=== PATIENT | female | born 1940 | race Caucasian/White ===

== ENCOUNTER 2024-06-16 10:27 | Observation (INO) | payer MEDICARE, BC, SELFPAY ==
[2024-06-16] VITALS (9 sets, daily range): BP systolic 136–170; BP diastolic 72–80; PULSE 64–69; TEMP 36.1–36.9; O2SAT 91–98; BMI 21.6; BMI 18.3
--- NOTE | 2024-06-16 | CONS_ITS ---
CONSULTATION CONSULTATION DATE: ??06/16/2024 CHIEF COMPLAINT:? Dysphagia, possible food impaction. HISTORY OF PRESENT ILLNESS:? Patient is an 83-year-old female with multiple medical problems including COPD, hypothyroidism, hypertension, peripheral vascular disease, hereditary telangiectasias.? She is on baby aspirin and Xarelto due to history of previous blood clots as well as angioplasty and stenting of the left superior femoral artery in October of 2023.? She reports that she was eating some type of Ramen soup last night that has some dried noodles and thought that she was swallowing it too quickly and felt like of these dried noodles were struck in the throat or irritated the throat.? Has continued to have a feeling of dysphagia when she tried to swallow solid foods.? She does report that she was able to swallow her medications this morning without difficulty, as well as liquids have been going down and her saliva; however, if she tries to eat anything solid, she feels like it is sticking there.? It is not coming back up.? She did have one small episode of emesis last evening when this happened, but has had no further problems.? No chest or abdominal pain.? She does have a history of dysphagia in the past.? She does report that when she had a lower extremity amputation on the right, she did require a temporary nasal feeding tube as well as a PEG tube due to poor p.o. intake.? She is a somewhat poor historian.? It is unclear whether she had an EGD for food impaction or just for the PEG tube insertion.? PAST SURGICAL HISTORY:? Patient?s past surgical history is also significant for tonsillectomy, hysterectomy, right below the knee amputation, as well as angioplasty and stenting of the left SFA.? SOCIAL HISTORY:? Patient reports rare alcohol use.? She is a former smoker.? Denies illicit drug use.? FAMILY HISTORY: Noncontributory. ALLERGIES:? Patient has allergies to moxifloxacin, Bactrim. HOME MEDICATIONS:? Include baby aspirin, atorvastatin, Restasis, Synthroid, lisinopril, mirabegron as well as Xarelto.? She just takes the Xarelto daily and did take it this morning.? REVIEW OF SYSTEMS:? Ten system review of systems is negative for recent weight loss or weight gain.? She denies increased fatigue or lightheadedness.? Has had no earache or tinnitus.? No sinus congestion, no sore throat or hoarseness.? She does have a feeling of dysphagia and some odynophagia.? No nausea or vomiting.? No abdominal pain. ?No diarrhea, constipation or decreased caliber of the stool.? No melena, hematochezia or bright red blood per rectum.? No dysuria, frequency, urgency or hematuria.? No headaches, seizures or tremors.? No easy bruising or bleeding.? No heat or cold intolerance.? No polydipsia, polyphagia or polyuria.? PHYSICAL EXAM:? Vital Signs:? Patient is afebrile.? Blood pressure 136/72, pulse is 69 and regular.? Respiratory rate 18, O2 saturation is 94% on room air.? General:? In general, she is an elderly, frail female, currently in no acute distress. ?She is tolerating a liquid diet without problems. HEENT:? Normocephalic, atraumatic.? Sclerae anicteric.? Patient wears glasses.? Conjunctivae are not injected.? Oral mucosa is slightly dry.? Neck is supple.? There is no adenopathy, thyromegaly or JVD. Lungs are clear bilaterally. Cardiac exam is regular rhythm and rate without appreciable murmurs, rubs or gallops. Abdomen is soft.? There are normal bowel sounds.? It is non-tender, non- distended.? There are no masses, ?hepatosplenomegaly or hernias.? No CVA tenderness. Skin is warm and dry without lesions, rashes or ulcers. Neuro exam is non-focal, non-lateralizing. LABORATORY VALUES:? Reveal mild anemia of 12.4 and 40.1 was the H&H.? Platelet count is 631,000.? Sodium is low at 128.? BUN is 18 with a creatinine of 0.61.? Liver function tests are normal.? IMAGING:? Chest x-ray was with no acute cardiopulmonary disease. ASSESSMENT:? An 83-year-old female with possible partial food obstruction versus irritation of the distal esophagus, currently in no acute distress. PLAN:? To proceed with EGD under anesthesia tomorrow.? She will be NPO after midnight.? We will hold her anticoagulation.? This may just be some irritation versus a partial food impaction.? Indications, risks, benefits, alternatives of proceeding with EGD and possible reduction or removal of the food bolus were explained extensively to the patient, including risks of bleeding aspiration, esophageal/gastric/duodena perforation, anesthetic complications, need for further surgery or transfer.? All of her questions were answered.? Informed consent was obtained. CC:? Lake Pearson M.D. [facility] HOSPITALAlejandra
--- NOTE | 2024-06-16 10:51 | ED.GENADUL1 ---
HPI HPI - General Adult General Chief complaint: Skin/Abscess/Foreign Body Stated complaint: THROAT PAIN Time Seen by Provider: 06/16/24 10:30 Source: patient Mode of arrival: ambulance History of Present Illness HPI narrative: Patient presenting to the emergency department for evaluation of potential food bolus. Patient states that last night she was eating Ramen noodle soup, she states that she ended up having some dry noodles, they got stuck in the midesophagus. Patient states that this happened once in the past, after she had surgery for her leg amputation. Patient states that she has had if esophageal difficulties in the past, has had food stuck in the past. Patient states that she feels like something is stuck in there, she does not want to eat or drink anything because she knows going to get stuck. Was able to take liquids, take her pills this morning. States she is not having any drooling, nausea, vomiting. Is not having any abdominal pain. No other complaints at this time Related Data Allergies Allergy/AdvReac Type Severity Reaction Status Date / Time moxifloxacin [From Avelox] Allergy Unknown Rash Verified 06/16/24 10:33 sulfamethoxazole Allergy Unknown Rash Verified 06/16/24 10:33 [From Bactrim] trimethoprim [From Bactrim] Allergy Unknown Rash Verified 06/16/24 10:33 Opioid HPI Opioid Management Most Recent Opioid Data: Last Pain Scale 4 06/16/24 10:37 Review of Systems ROS Narrative Negative unless otherwise stated in the HPI. Exam Narrative Exam Narrative: General: NAD, AAOx3, no distress, no drooling, no trismus, does not have inability to tolerate oral secretions, no air, is Respiratory: respiratory effort normal, speaks in full sentences, no tripod position, no accessory muscle use. Lungs clear to auscultation without rhonchi, wheezes, rales Cardiac: Regular rate and rhythm, no edema, regular s1/s2, no m/g/r Abdomen: Soft, ND/NT. No evidence of fluid wave. No pulsatile masses on exam, rebound tenderness, Carmichael sign or pain over Mcburney's point. Constitutional Vital Signs, click to edit/add: Last Vital Signs Temp 98.5 F 06/16/24 10:29 Pulse 67 06/16/24 10:29 Resp 20 06/16/24 10:29 BP 170/79 H 06/16/24 10:29 Pulse Ox 97 06/16/24 10:29 O2 Del Method Room Air 06/16/24 10:29 Course Vital Signs Vital signs: Vital Signs Temperature 98.5 F 06/16/24 10:29 Pulse Rate 67 06/16/24 10:29 Respiratory Rate 20 06/16/24 10:29 Blood Pressure 170/79 H 06/16/24 10:29 Pulse Oximetry 97 06/16/24 10:29 Oxygen Delivery Method Room Air 06/16/24 10:29 Temperature 98.5 F 06/16/24 10:29 Pulse Rate 67 06/16/24 10:29 Respiratory Rate 20 06/16/24 10:29 Blood Pressure 170/79 H 06/16/24 10:29 Pulse Oximetry 97 06/16/24 10:29 Oxygen Delivery Method Room Air 06/16/24 10:29 Medical Decision Making MDM Narrative Medical decision making narrative: MDM Patient with history as above presented with esophageal food bolus. History obtained from patient Patient was nontoxic, stable. Ambulatory. Exam as above. Reviewed external records. Differential diagnosis considered. Overall presentation is consistent with food bolus 1055 was p.o. challenged with effervescent, soda pop. Tolerated it well, states that she feels like it is getting semistuck in the mid esophagus. 1144 General surgery was paged, patient has failed p.o. challenge. Took 1 bite of Jell-O, states it got stuck and went down only after very long time. Patient states that he did not really want to go down. He is refusing to eat anything further. Liquid did go down, and facility said a pill went down this morning. He states the patient can be placed on knobs and he will see patient on consultation. [address] Cardenas, who agreed to admit patient for fluid bolus, general surgery will be station.. Medical Records Medical records reviewed: Yes I reviewed the patient's medical records Discharge Plan Discharge Chief Complaint: Skin/Abscess/Foreign Body Clinical Impression: Food impaction of esophagus Patient Disposition: Admitted as Observation Time of Disposition Decision: 12:17
--- NOTE | 2024-06-16 12:10 | XR_ITS ---
The [address] [address] Patient Name: GARETT NIETO MRN: [id number] date: 1940 Sex: F Assigned Patient Location: ED.MAIN Current Patient Location: ED.MAIN Accession/Order Number: [id number] Exam Date: 06/16/2024 12:20 Report Date: 06/16/2024 13:05 At the request of: SHAIKH KRYSTEN Procedure: XR chest 1V EXAMINATION: XR chest 1V HISTORY: Food bolus/esophageal dysphagia COMPARISON: XR chest 1112 FINDINGS: LUNGS: Previously hyperexpanded lungs suggestive COPD. Lungs are less well-expanded on today's study. Small dense nodule within upper right and left lung favoring a calcified granulomas. No appreciable infiltrates. VASCULATURE: No increased pulmonary vasculature. PLEURA: No pneumothorax, effusion, or pleural thickening. CARDIAC: No cardiomegaly or cardiac silhouette abnormality. MEDIASTINUM: No visible mass or adenopathy. BONES: No fracture or visible bone lesion. OTHER: Negative. XR/XR chest 1V IMPRESSION: 1. No acute cardiopulmonary process. Electronically authenticated by: HANNA CASTRO Date: 06/16/2024 13:05
--- NOTE | 2024-06-16 12:10 | ECG_ITS ---
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
[2024-06-16 12:52] LABS: Basophils Absolute Auto 0.1 10^3/uL (0.0-0.1); Basophils Percent Auto 0.9 % (0.2-2.0); Eosinophils Percent Auto 0.7 % (0.9-7.0); Hematocrit 40.1 % (36.0-48.0); Hemoglobin 12.4 g/dL (12.0-16.0); Immature Granulocytes Abs Auto 0.02 10^3/uL (0.00-0.03); Immature Granulocytes Pct Auto 0.4 % (0.0-0.5); Lymphocytes Absolute Auto 0.8 10^3/uL (1.2-3.8); Mean Corpuscular HGB Conc 30.9 g/dL (29.9-35.2); Mean Corpuscular Hemoglobin 24.1 pg (26.7-34.0); Mean Platelet Volume 10.2 fL (9.5-13.5); Monocytes Absolute Auto 0.5 10^3/uL (0.3-0.8); Monocytes Percent Auto 9.5 % (1.7-12.0); Neutrophils Percent Auto 74.5 % (43.0-75.0); Platelet Count 631 10^3/uL (150-450); Red Blood Count 5.14 10^6/uL (4.20-5.40); Red Cell Distribution Width 18.7 % (11.0-15.0); White Blood Count 5.4 10^3/uL (4.0-11.0)
--- NOTE | 2024-06-16 12:56 | P.HP_ITS ---
HPI H&P: HPI History of Present Illness Chief complaint: THROAT PAIN Narrative: 83-year-old female, who lives by herself presented to ER for potential food bolus. She reports that she was eating last evening and feels that foods are stuck in her midesophagus. Since last night, she has been unable to tolerate/eat solid food. She is able to tolerate liquid. Patient reports that even with liquid, she feels that it is getting stuck in her esophagus. She denies nausea and had 1 episode of vomiting yesterday. She denies abdominal pain, constipation, diarrhea. She reports prior history was in the past. Case was discussed with the ER provider who recommended overnight observation. If her symptoms have not resolved, she will need upper GI endoscopy tomorrow in the morning Opioid HPI Opioid Management Most Recent Pain and Opioid Data: Last Pain Scale 4 06/16/24 10:37 Review of Systems ROS Status of ROS 10 or more systems reviewed and unremark able except as noted in history and below [facility] Medical History (Updated 06/16/24 @ 13:00 by Shaikh Alber MD) Hypothyroidism ?E03.9 - Hypothyroidism, unspecified (ICD-10) HTN (hypertension) ?I10 - Essential (primary) hypertension (ICD-10) Social History (Updated 06/16/24 @ 13:00 by Shaikh Alber MD) Within the past year, how often did you have a drink containing alcohol: monthly or less Within the past year, how many standard drinks containing alcohol did you have on a typical day: 1 or 2 Total score: 0 Score interpretation: A score less than 3 is consistent with normal alcohol consumption. Smoking status: Former smoker Non-prescribed substance use: denies use Meds Home Medications and Allergies Home Medications ?Medication ?Instructions ?Recorded ?Confirmed ?Type atorvastatin 80 mg tablet 80 mg PO DAILY 06/16/24 06/16/24 History cyclosporine 0.05 % eye drops in a 1 drp ophthalmic (eye) BID 06/16/24 06/16/24 History dropperette (Restasis) levothyroxine 100 mcg tablet 100 mcg PO .acb 06/16/24 06/16/24 History (Synthroid) lisinopril 10 mg tablet 10 mg PO DAILY 06/16/24 06/16/24 History mirabegron 25 mg tablet,extended 25 mg PO QAM 06/16/24 06/16/24 History release 24 hr Allergies Allergy/AdvReac Type Severity Reaction Status Date / Time moxifloxacin [From Avelox] Allergy Unknown Rash Verified 06/16/24 10:33 sulfamethoxazole Allergy Unknown Rash Verified 06/16/24 10:33 [From Bactrim] trimethoprim [From Bactrim] Allergy Unknown Rash Verified 06/16/24 10:33 Exam Constitutional Vital Signs, click to edit/add: Last Vital Signs Temp 98.5 F 06/16/24 10:29 Pulse 67 06/16/24 10:29 Resp 20 06/16/24 10:29 BP 170/79 H 06/16/24 10:29 Pulse Ox 97 06/16/24 10:29 O2 Del Method Room Air 06/16/24 10:29 Documenting provider has reviewed patient's vital signs: yes Common normals: no apparent distress and oriented x3 General appearance: cooperative, ill appearing and frail appearing Nutritional appearance: thin HENMT Common normals: normocephalic and head/scalp atraumatic Head and scalp: normocephalic and atraumatic Respiratory Common normals: normal respiratory effort and clear to auscultation bilaterally Effort & inspection: able to speak in complete sentences Auscultation: clear to auscultation bilaterally Cardio Common normals: regular rate, S1 normal heart sound and S2 normal heart sound Rate: regular rate Heart sounds: S1 normal and S2 normal GI Common normals: Normal to inspection, nondistended, normoactive bowel sounds present, soft to palpation, non-tender and no hepatosplenomegaly Palpation: soft and no hepatosplenomegaly Neuro Common normals: oriented x3, moves all extremities and no focal motor deficits Psych Common normals: mental status grossly normal, denies hallucinations, denies homi cidal ideation and denies suicidal ideation Results Labs Labs: Short CBC 06/16/24 Range/Units 12:43 WBC 5.4 (4.0-11.0) 10^3/uL Hgb 12.4 (12.0-16.0) g/dL Hct 40.1 (36.0-48.0) % Plt Count 631 H (150-450) 10^3/uL Assessment and Plan Assessment and Plan (1) Food impaction of esophagus: Assessment and Plan: Presents with esophageal dysphagia and possible food impaction in esophagus. She is able to tolerate oral liquids. Continue with same. General surgery consulted for possible upper GI endoscopy tomorrow Qualifiers: Encounter type: subsequent encounter Qualified Code(s): T18.128D - Food in esophagus causing other injury, subsequent encounter; W44.F3XD - Food entering into or through a natural orifice, subsequent encounter (2) Esophageal dysphagia: Assessment and Plan: Esophageal dysphagia likely from food impaction. Tolerating oral liquids.. Treat with IV Protonix. Continue with liquid diet. General surgery consulted for possible EGD tomorrow if she has persistent symptoms (3) Hypothyroidism: Assessment and Plan: Continue with levothyroxine Qualifiers: Hypothyroidism type: unspecified Qualified Code(s): E03.9 - Hypothyroidism, unspecified (4) HTN (hypertension): Assessment and Plan: Continue with home medications. Qualifiers: Hypertension type: primary hypertension Qualified Code(s): I10 - Essential (primary) hypertension
[2024-06-16 13:06] LABS: Alanine Aminotransferase 26 U/L (14-59); Albumin Globulin Ratio 0.9; Albumin Level 3.6 g/dL (3.4-5.0); Alkaline Phosphatase 108 U/L (46-116); Anion Gap 10.2; Aspartate Amino Transferase 20 U/L (15-37); BUN Creatinine Ratio 29.5; Bilirubin Total 0.6 mg/dL (0.2-1.0); Calcium 8.9 mg/dL (8.5-10.1); Carbon Dioxide 28.3 mmol/L (21.0-32.0); Chloride 94 mmol/L (98-107); Estimated GFR (African America >60 (>=60); Estimated GFR (Non-African Ame >60 (>=60); Globulin 3.8 g/dL; Glucose 93 mg/dL (74-106); Potassium 4.5 mmol/L (3.5-5.1); Sodium 128 mmol/L (136-145); Total Protein 7.4 g/dL (6.4-8.2)
[2024-06-16] MEDS: LACTATED RINGER'S SOLUTION 1,000 ML 100 ML IV (15:10)
[2024-06-16] MEDS: ENOXAPARIN SODIUM 40 MG/0.4 ML SYRINGE SUBQ (15:14)
--- NOTE | 2024-06-16 15:30 | SWNOTE1 ---
SW met with pt to discuss dc needs. Pt lives at home alone. Her son does assist as needed. Pt uses a wheelchair and slide board at home. 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 She has grab bars in bathroom to assist as needed. Pt does have home health coming in, she thinks it is [facility]. SW to check. At this time she has no concerns about discharge and will resume her HH. At this time it is only nursing for HH coming in. She had therapy in past, but does not need anymore. SW to follow as needed. Medicare Outpatient Observation Notice reviewed and discussed with patient. Pt. verbalized understanding and signed the form. Original given to patient and copy placed in patient?s chart.
--- NOTE | 2024-06-16 15:34 | SWNOTE1 ---
[facility] called [facility] and pt is current with them and only receiving nursing care.
--- NOTE | 2024-06-16 18:47 | PM.GSCN ---
History of Present Illness Consult details Consult date: 06/16/24 Requesting physician: Shaikh Alber Narrative: patient seen/examined/chart reviewed/consult dictated; 83 yo female with multiple medical problems, on Xarelto and baby asa, with dysphagia, possible partial food impaction; tolerating liquids and her saliva, swallowing her pills ok, feels sensation of pressure when tries to eat food, does not feel like it is going down; no N/V or abd pain; npo after mdn, hold Xarelto, plan EGD with possible reduction/removal of food bolus under anesthesia, informed consent obtained. [facility] Medical History (Updated 06/16/24 @ 14:36 by Serenity Hearn) COPD (chronic obstructive pulmonary disease) ?J44.9 - Chronic obstructive pulmonary disease, unspecified (ICD-10) Frequent epistaxis ?R04.0 - Epistaxis (ICD-10) Amputation above knee ?S78.119A - Complete traumatic amputation at level between unspecified hip and knee, initial encounter (ICD-10) Hypothyroidism ?E03.9 - Hypothyroidism, unspecified (ICD-10) HTN (hypertension) ?I10 - Essential (primary) hypertension (ICD-10) Surgical History (Updated 06/16/24 @ 14:33 by Serenity Hearn) History of tonsillectomy ?Z90.89 - Acquired absence of other organs (ICD-10) H/O: hysterectomy ?Z90.710 - Acquired absence of both cervix and uterus (ICD-10) Family History (Updated 06/16/24 @ 14:36 by Serenity Hearn) Father Family history of CHF (congestive heart failure) Family history of myocardial infarction Mother Family history of CHF (congestive heart failure) Family history of myocardial infarction Social History (Updated 06/16/24 @ 13:00 by Shaikh Alber MD) Within the past year, how often did you have a drink containing alcohol: monthly or less Within the past year, how many standard drinks containing alcohol did you have on a typical day: 1 or 2 Total score: 0 Score interpretation: A score less than 3 is consistent with normal alcohol consumption. Smoking status: Former smoker Non-prescribed substance use: denies use Highest level of school completed/degree received: high school graduate Gender Identity: female Meds Home Medications and Allergies Home Medications ?Medication ?Instructions ?Recorded ?Confirmed ?Type aspirin 81 mg chewable tablet 81 mg PO .qhs 06/16/24 06/16/24 History atorvastatin 80 mg tablet 80 mg PO DAILY 06/16/24 06/16/24 History cyclosporine 0.05 % eye drops in a 1 drp ophthalmic (eye) BID 06/16/24 06/16/24 History dropperette (Restasis) levothyroxine 100 mcg tablet 100 mcg PO .acb 06/16/24 06/16/24 History (Synthroid) lisinopril 10 mg tablet 10 mg PO DAILY 06/16/24 06/16/24 History mirabegron 25 mg tablet,extended 25 mg PO QAM 06/16/24 06/16/24 History release 24 hr rivaroxaban 2.5 mg tablet (Xarelto) 2.5 mg PO DAILY 06/16/24 06/16/24 History Allergies Allergy/AdvReac Type Severity Reaction Status Date / Time moxifloxacin [From Avelox] Allergy Unknown Rash Verified 06/16/24 10:33 sulfamethoxazole Allergy Unknown Rash Verified 06/16/24 10:33 [From Bactrim] trimethoprim [From Bactrim] Allergy Unknown Rash Verified 06/16/24 10:33 Exam Constitutional Vital Signs, click to edit/add: Last Vital Signs Temp 97.0 F L 06/16/24 16:00 Pulse 69 06/16/24 16:00 Resp 18 06/16/24 16:00 BP 136/72 06/16/24 16:00 Pulse Ox 94 L 06/16/24 17:07 O2 Del Method Room Air 06/16/24 17:07 Results Labs Labs: Abnormal lab results 06/16/24 Range/Units 12:43 MCV 78.0 L (81.0-99.0) fL MCH 24.1 L (26.7-34.0) pg RDW 18.7 H (11.0-15.0) % Plt Count 631 H (150-450) 10^3/uL Lymph % (Auto) 14.0 L (20.5-60.0) % Eos % (Auto) 0.7 L (0.9-7.0) % Lymph # (Auto) 0.8 L (1.2-3.8) 10^3/uL Sodium 128 L (136-145) mmol/L Chloride 94 L (98-107) mmol/L Diabetes panel 06/16/24 Range/Units 12:43 Sodium 128 L (136-145) mmol/L Potassium 4.5 (3.5-5.1) mmol/L Chloride 94 L (98-107) mmol/L Carbon Dioxide 28.3 (21.0-32.0) mmol/L BUN 18.0 (7.0-18.0) mg/dL Creatinine 0.61 (0.55-1.02) mg/dL Glucose 93 (74-106) mg/dL Calcium 8.9 (8.5-10.1) mg/dL AST 20 (15-37) U/L ALT 26 (14-59) U/L Alkaline Phosphatase 108 (46-116) U/L Total Protein 7.4 (6.4-8.2) g/dL Albumin 3.6 (3.4-5.0) g/dL Calcium panel 06/16/24 Range/Units 12:43 Calcium 8.9 (8.5-10.1) mg/dL Albumin 3.6 (3.4-5.0) g/dL Pituitary panel 06/16/24 Range/Units 12:43 Sodium 128 L (136-145) mmol/L Potassium 4.5 (3.5-5.1) mmol/L Chloride 94 L (98-107) mmol/L Carbon Dioxide 28.3 (21.0-32.0) mmol/L BUN 18.0 (7.0-18.0) mg/dL Creatinine 0.61 (0.55-1.02) mg/dL Glucose 93 (74-106) mg/dL Calcium 8.9 (8.5-10.1) mg/dL Adrenal panel 06/16/24 Range/Units 12:43 Sodium 128 L (136-145) mmol/L Potassium 4.5 (3.5-5.1) mmol/L Chloride 94 L (98-107) mmol/L Carbon Dioxide 28.3 (21.0-32.0) mmol/L BUN 18.0 (7.0-18.0) mg/dL Creatinine 0.61 (0.55-1.02) mg/dL Glucose 93 (74-106) mg/dL Calcium 8.9 (8.5-10.1) mg/dL Total Bilirubin 0.6 (0.2-1.0) mg/dL AST 20 (15-37) U/L ALT 26 (14-59) U/L Alkaline Phosphatase 108 (46-116) U/L Total Protein 7.4 (6.4-8.2) g/dL Albumin 3.6 (3.4-5.0) g/dL All other labs normal. Assessment and Plan Assessment and Plan (1) Food impaction of esophagus: Qualifiers: Encounter type: subsequent encounter Qualified Code(s): T18.128D - Food in esophagus causing other injury, subsequent encounter; W44.F3XD - Food entering into or through a natural orifice, subsequent encounter (2) Esophageal dysphagia: (3) Hypothyroidism: Qualifiers: Hypothyroidism type: unspecified Qualified Code(s): E03.9 - Hypothyroidism, unspecified (4) HTN (hypertension): Qualifiers: Hypertension type: primary hypertension Qualified Code(s): I10 - Essential (primary) hypertension
[2024-06-16] MEDS: ATORVASTATIN CALCIUM 40 MG TABLET 80 MG PO (21:15)
[2024-06-17] VITALS (8 sets, daily range): BP systolic 114–170; BP diastolic 50–81; PULSE 56–63; TEMP 36.4–36.6; O2SAT 90–98
--- NOTE | 2024-06-17 | OP_ITS ---
OPERATION DATE: 06/17/2024 PREOPERATIVE DIAGNOSIS: Dysphagia, possible food impaction. POSTOPERATIVE DIAGNOSIS: Large hiatal hernia. PROCEDURE: EGD SURGEON: Eriberto Louie M.D. ANESTHESIA: Monitored anesthesia care. ESTIMATED BLOOD LOSS: Zero. INDICATIONS AND CONSENT: Patient is an 83-year-old female who was eating some Ramen noodles two nights ago, some were dried and she reports that she was eating quickly. She felt like these got partially lodged in the lower esophagus and were making it difficult for her to swallow. She was able to swallow her pills and take liquids without problems, as well as her own saliva. She presented to the emergency room for evaluation, because she felt that food was not going down adequately or felt that it was getting stuck in the area where she felt the food was stuck. She does take Xarelto as well as aspirin. She was admitted yesterday and kept on clear liquid diet, NPO after midnight. She feels improved today. Plan is to proceed with EGD under anesthesia for further evaluation. Her Xarelto was held today. Indications, risks, benefits, alternatives of proceeding with EGD were explained extensively to the patient, including the risks of bleeding, aspiration, esophageal/gastric/duodenal perforation or anesthetic complications. All of her questions were answered. Informed consent was obtained. PROCEDURE: Patient brought to the operating room, placed in the left lateral decubitus position. Monitored anesthesia care was provided. Bite block was placed in the patient?s mouth. Scope was inserted into the oropharynx. Under direct visualization, it was advanced into the esophagus, past the cricopharyngeus, down to the distal esophagus and into the stomach. The stomach was insufflated with air. There was no old or new blood or inflammation within the stomach. The scope was retroflexed. There was noted to be a large, sliding type hiatal hernia. The GE junction was noted at approximately 34 cm. There was no narrowing in the esophagus. No esophagitis. No ulcerations. No evidence of narrowing or food bolus. The remainder of the esophagus was unremarkable, upon withdrawal of the scope. Patient tolerated procedure well, was sent to recovery room in good condition. CC: Lake Pearson M.D. [facility]
[2024-06-17] MEDS: LACTATED RINGER'S SOLUTION 1,000 ML 100 ML IV (00:46)
[2024-06-17] MEDS: PANTOPRAZOLE SODIUM 40 MG VIAL IV (05:38)
[2024-06-17 06:26] LABS: Basophils Absolute Auto 0.1 10^3/uL (0.0-0.1); Basophils Percent Auto 1.1 % (0.2-2.0); Eosinophils Absolute Auto 0.1 10^3/uL (0.0-0.7); Eosinophils Percent Auto 2.3 % (0.9-7.0); Hematocrit 39.9 % (36.0-48.0); Hemoglobin 12.1 g/dL (12.0-16.0); Immature Granulocytes Abs Auto 0.02 10^3/uL (0.00-0.03); Immature Granulocytes Pct Auto 0.4 % (0.0-0.5); Lymphocytes Absolute Auto 0.6 10^3/uL (1.2-3.8); Lymphocytes Percent Auto 12.6 % (20.5-60.0); Mean Corpuscular HGB Conc 30.3 g/dL (29.9-35.2); Mean Corpuscular Hemoglobin 23.6 pg (26.7-34.0); Mean Corpuscular Volume 77.9 fL (81.0-99.0); Mean Platelet Volume 10.1 fL (9.5-13.5); Monocytes Absolute Auto 0.4 10^3/uL (0.3-0.8); Monocytes Percent Auto 8.6 % (1.7-12.0); Neutrophils Absolute Auto 3.6 10^3/uL (1.4-6.5); Platelet Count 570 10^3/uL (150-450); Red Blood Count 5.12 10^6/uL (4.20-5.40); Red Cell Distribution Width 18.3 % (11.0-15.0); White Blood Count 4.8 10^3/uL (4.0-11.0)
[2024-06-17 06:50] LABS: Alanine Aminotransferase 21 U/L (14-59); Albumin Globulin Ratio 0.9; Albumin Level 3.1 g/dL (3.4-5.0); Alkaline Phosphatase 97 U/L (46-116); Anion Gap 12.4; Aspartate Amino Transferase 18 U/L (15-37); BUN Creatinine Ratio 23.6; Calcium 9.1 mg/dL (8.5-10.1); Carbon Dioxide 25.9 mmol/L (21.0-32.0); Chloride 98 mmol/L (98-107); Estimated GFR (African America >60 (>=60); Estimated GFR (Non-African Ame >60 (>=60); Globulin 3.4 g/dL; Glucose 84 mg/dL (74-106); Potassium 4.3 mmol/L (3.5-5.1); Sodium 132 mmol/L (136-145); Total Protein 6.5 g/dL (6.4-8.2)
--- NOTE | 2024-06-17 10:08 | SWNOTE1 ---
Possible discharge today after EGD. SW called pt's son, Nolberto, and he will transport if pt is discharged.
--- NOTE | 2024-06-17 10:15 | CM.NOTE ---
Rounds made with Dr. Campo, pt being taken to OR at this time for EGD. Pt will possibly discharge to home after EGD this afternoon. Pt is set up with [facility] and will continue with these services.
--- NOTE | 2024-06-17 13:18 | P.DS_ITS ---
DS: Providers Provider Date of admission: 06/16/24 13:53 Primary care physician: ZEENAT TERAN Admitting clinician: Shaikh Alber Attending physician on admission: Shaikh Alebr Consults: 06/16/24 12:08 Consult to General Surgeon Routine Consulting Provider: Eriberto Louie Reason for consultation: esophageal dysphagia Occupational Therapy Eval and Treat Routine Reason for consultation: Ambulatory dysfunction/weakness Physical Therapy Eval and Treat Routine Reason for consultation: Ambulatory dysfunction/weakness 06/16/24 15:39 Speech Therapy Eval and Treat Routine Reason for consultation: dysphagia Attending physician on discharge: Shaikh Alber Discharging clinician: Shaikh Alber Anticipated date of discharge: 06/17/24 DS: Diagnosis Discharge Diagnosis (1) Food impaction of esophagus: Assessment and plan: No food particle noted on EGD. She might have passed the food bolus or her symptoms could have been due to hiatal hernia. Regardless, she is stable for discharge. She is recommended to eat mechanical chopped/soft food. Qualifiers: Encounter type: subsequent encounter Qualified Code(s): T18.128D - Food in esophagus causing other injury, subsequent encounter; [id number] - Food entering into or through a natural orifice, subsequent encounter (2) Esophageal dysphagia: Assessment and plan: likely due to hiatal hernia and associated GERD. Will d/c on oral PPI. Diet modified to soft/shopped. (3) Hypothyroidism: Assessment and plan: C/w levothyroxine Qualifiers: Hypothyroidism type: unspecified Qualified Code(s): E03.9 - Hypothyroidism, unspecified (4) HTN (hypertension): Assessment and plan: C/w home medications Qualifiers: Hypertension type: primary hypertension Qualified Code(s): I10 - Essential (primary) hypertension (5) Hyponatremia: Assessment and plan: improved with IV hydration (6) Hx pulmonary embolism: Assessment and plan: On xarelo, c/w same DS: Summary Hospital Course Hospital Course: 83-year-old female, who lives by herself presented to ER for potential food bolus. She reported that she feels that food is stuck in her midesophagus after her last meal. She denied nausea and had 1 episode of vomiting. She had no other symptoms. Patient was admitted for observation, made NPO and had EGD earlier today that did not show any food particles in esophagus but was noted to have hiatal hernia. Patient's diet advanced. 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 Stable for discharge. F/u with PCP In one week Time Spent with Patient Time attestation: Total time spent providing and/or coordinating discharge services: Exam Constitutional Vital Signs, click to edit/add: Last Vital Signs Temp 97.6 F 06/17/24 12:04 Pulse 57 L 06/17/24 12:04 Resp 18 06/17/24 12:04 BP 148/66 H 06/17/24 12:04 Pulse Ox 95 06/17/24 12:04 O2 Del Method Room Air 06/17/24 12:04 Documenting provider has reviewed patient's vital signs: yes Common normals: no apparent distress and oriented x3 General appearance: cooperative and frail appearing Nutritional appearance: thin HENMT Common normals: normocephalic and head/scalp atraumatic Head and scalp: normocephalic and atraumatic Respiratory Common normals: normal respiratory effort and clear to auscultation bilaterally Effort & inspection: able to speak in complete sentences Auscultation: clear to auscultation bilaterally Cardio Common normals: regular rate, S1 normal heart sound and S2 normal heart sound Rate: regular rate Heart sounds: S1 normal and S2 normal GI Common normals: Normal to inspection, nondistended, normoactive bowel sounds present, soft to palpation, non-tender and no hepatosplenomegaly Palpation: soft and no hepatosplenomegaly Neuro Common normals: oriented x3, moves all extremities and no focal motor deficits Psych Common normals: mental status grossly normal, denies hallucinations, denies homicidal ideation and denies suicidal ideation DS: Data Data Completed and Pending Labs on day of discharge: Labs from last 24 hours 06/17/24 05:17 WBC 4.8 RBC 5.12 Hgb 12.1 Hct 39.9 MCV 77.9 L MCH 23.6 L MCHC 30.3 RDW 18.3 H Plt Count 570 H MPV 10.1 Neut % (Auto) 75.0 Lymph % (Auto) 12.6 L [place] % (Auto) 8.6 Eos % (Auto) 2.3 Baso % (Auto) 1.1 Neut # (Auto) 3.6 Lymph # (Auto) 0.6 L [place] # (Auto) 0.4 Eos # (Auto) 0.1 Baso # (Auto) 0.1 Abs Immat Gran (auto) 0.02 Imm/Tot Granulo (auto) 0.4 Sodium 132 L Potassium 4.3 Chloride 98 Carbon Dioxide 25.9 Anion Gap 12.4 BUN 13.0 Creatinine 0.55 Est GFR ( Amer) >60 Est GFR (Non-Af Amer) >60 BUN/Creatinine Ratio 23.6 Glucose 84 Calcium 9.1 Total Bilirubin 1.0 AST 18 ALT 21 Alkaline Phosphatase 97 Total Protein 6.5 Albumin 3.1 L Globulin 3.4 Albumin/Globulin Ratio 0.9 Discharge Plan Discharge Disposition: Home, Self-Care Discharge Medications: New omeprazole 40 mg capsule,delayed release(DR/EC) 40 mg PO DAILY Qty: 30 0RF Continued atorvastatin 80 mg tablet 80 mg PO DAILY cyclosporine [Restasis] 0.05 % dropperette 1 drp OPHTHALMIC (EYE) BID Rx Instructions: both eyes levothyroxine [Synthroid] 100 mcg tablet 100 mcg PO .acb lisinopril 10 mg tablet 10 mg PO DAILY mirabegron 25 mg tablet extended release 24 hr 25 mg PO QAM Xarelto 2.5 mg tablet 2.5 mg PO DAILY Rx Instructions: only takes daily due to cost aspirin 81 mg tablet,chewable 81 mg PO .qhs Patient Comments: takes in place of Xarelto at bedtime due to cost Activity: increase activity as tolerated Diet: other Diet Detail: mechanical/soft/chopped Print Language: Sami Forms: Portal Instructions Follow Up Appointments: PCP in one week
--- NOTE | 2024-06-17 15:35 | SWNOTE1 ---
[facility] sent over dc med rec, CRF, and update progress notes to [facility].
--- NOTE | 2024-06-17 15:47 | NUTR.NU ---
Pt was admitted to 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 Diet was upgraded to Mechanical Soft-ground for lunch today and pt ate ~50% of her meal. She was discharged this afternoon following EGD.
--- NOTE | 2024-06-18 14:09 | CM.DCFOLLOWU ---
06/18- 1st attempt. No answer
--- NOTE | 2024-06-19 12:13 | CM.DCFOLLOWU ---
Person spoke with: patient How are you feeling? very good, very thankful she had the scope done How is your pain? none Did you understand your discharge instructions? yes Do you have any questions about your discharge instructions? no Were you given any prescriptions at discharge? yes Were you able to get your prescriptions filled? yes Do you understand how to take your medications as ordered? yes Do you have any questions about your follow up appointment and do you plan to keep your follow up appointment? no questions, reviewed follow up Is there anything else that you would like to discuss? no Questions/Comments/Concerns/Other: none
== END 2024-06-17 15:07 | disposition home or self-care (01) ==
LOC: ER 12:28 → MS 14:04
PROVIDERS: Surgery; Admitting Provider Internal Medicine; Emergency Provider Emergency Medicine; PCP Family Medicine; Visit Provider Internal Medicine
PROC: (CPT 43235; principal; 2024-06-17 10:20)
DX: K44.9 Diaphragmatic hernia without obstruction or gangrene (principal); K21.9 Gastro-esophageal reflux disease without esophagitis; E03.9 Hypothyroidism, unspecified; I10 Essential (primary) hypertension; J44.9 Chronic obstructive pulmonary disease, unspecified; I73.9 Peripheral vascular disease, unspecified; I78.0 Hereditary hemorrhagic telangiectasia; R13.10 Dysphagia, unspecified; E87.1 Hypo-osmolality and hyponatremia; Z86.711 Personal history of pulmonary embolism; Z79.82 Long term (current) use of aspirin; Z79.01 Long term (current) use of anticoagulants; Z90.710 Acquired absence of both cervix and uterus; Z89.511 Acquired absence of right leg below knee; Z87.891 Personal history of nicotine dependence; Z79.899 Other long term (current) drug therapy
CPT/HCPCS: 43235; 36415; 71045; 80053; 85025; 93005; 94761; 96372; 96374; 99285; G0378; J1650; J2704

== ENCOUNTER 2024-08-07 15:26 | Emergency (ER) | payer MEDICARE, BC, SELFPAY ==
[2024-08-07 15:27] VITALS: BP 169/79; PULSE 64; TEMP 36.4; O2SAT 94
--- OUTSIDE RECORDS SUMMARY | 2024-08-07 15:39 | XMS_ITS | CCD ---
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 Name Role Phone CHE BOSCH Admitting Unavailable CHE BOSCH Attending Unavailable EZENAT SAENZ Primary Care Unavailable CHE BOSCH Consulting Unavailable Henry Benton Unavailable MD Zeenat Saenz Primary Care Provider MD Henry Benton Attending Provider [phone] Kaylene Miller Unavailable MD Zeenat Saenz Primary Care Provider MD Henry Benton Attending Provider MD Zeenat Saenz Primary Care Provider MD Henry Benton Attending Provider MD Juan C Anders Attending Provider [phone] MD Zeenat Saenz Primary Care Provider MD Henry Benton Attending Provider MD Bob Sainz Admit Provider MD Henry Benton Other Provider MD Zaira Skinner Attending Provider Zeenat Saenz MD Primary Care Provider MD Zeenat Saenz Primary Care Provider MD Henry Benton Attending Provider Zeenat Saenz Primary Care Unavailable Henry Benton Admitting Unavailable Henry Benton Attending Unavailable Henry Benton Attending Unavailable Zeenat Saenz Primary Care Unavailable Henry Benton Admitting Unavailable Defrance, Zeenat Primary Care Unavailable FrantzomaBob gentile Admitting Unavailable Zaira Skinner Attending Unavailable Henry Benton Consulting Unavailable Henry Benton Attending Unavailable Defrance, Zeenat Primary Care Unavailable BuehreHenry gentile Admitting Unavailable DEFRANCE, ZEENAT Oliveira Attending Unavailable DEFRANCE, ZEENAT T Referring Unavailable DEFRANCE, ZEENAT T Primary Care Unavailable DEFRANCE, ZEENAT T Attending Unavailable DEFRANCE, ZEENAT T Referring Unavailable DEFRANCE, ZEENAT T Primary Care Unavailable DEFRANCE, ZEENAT T Referring Unavailable DEFRANCE, ZEENAT T Primary Care Unavailable ASHLEIGH HARRIS Attending Unavailable ALINOLANSOTELO Referring Unavailable DEFRANCE, ZEENAT T Primary Care Unavailable ALIMIREYAD Attending Unavailable ALINOLANSOTELO Referring Unavailable DEFRANCE, ZEENAT T Primary Care Unavailable ALIMIREYAD Attending Unavailable ALIMIREYAD Referring Unavailable DEFRANCE, ZEENAT Oliveira Primary Care Unavailable JEANANNA TREVIZO Attending Unavailable JEANANNA Referring Unavailable DEFRANCE, ZEENAT Oliveira Primary Care Unavailable DEFRANCE, ZEENAT T Referring Unavailable DEFRANCE, ZEENAT T Primary Care Unavailable DEFRANCE, ZEENAT Oliveira Primary Care Unavailable ASHLEIGH HARRIS Attending Unavailable JESUS APYNE Admitting Unavailable DEFRANCE, ZEENAT Oliveira Referring Unavailable DEFRANCE, ZEENAT Oliveira Primary Care Unavailable DEFRANCE, ZEENAT Oliveira Referring Unavailable DEFRANCE, ZEENAT Oliveira Primary Care Unavailable DEFRANCE, ZEENAT Oliveira Primary Care Unavailable CATALINA DYE Attending Unavailable MADAI SHEFFIELD Consulting Unavailable VIANEY OQUENDO Admitting Unavailab RHONDA Ruiz Attending Unavailable RHONDA TURPIN Referring Unavailable DEFRANCE, ZEENAT T Primary Care Unavailable DEFRANCE, ZEENAT T Referring Unavailable DEFRANCE, ZEENAT Oliveira Primary Care Unavailable DEFRANCE, ZEENAT T Primary Care Unavailable OLE SHUKLA Attending Unavailable OLE SHUKLA Attending Unavailable OLE SHUKLA Referring Unavailable DEFRANCE, ZEENAT Oliveira Primary Care Unavailable SHAIKH BASHIR Referring Unavailable Madai MANZANO Attending Unavailable Allergies Allergy Classification Reported Allergen(s) Allergy Type Date of Onset Reaction(s) Facility (1 source) hyaluronate Drug Allergy [facility] (9 sources) moxifloxacin Drug Allergy 03-14-20 17 Unknown [facility] (9 sources) Sulfamethoxazole / Trimethoprim Drug Allergy 03-14-20 17 Unknown [facility] (8 sources) Amoxicillin / Clavulanate Drug Allergy Unknown [facility] Other (20 sources) moxifloxacin; Translations: [moxifloxacin] Drug Allergy 07-16-20 17 Anaphylaxis, Itching [facility] (11 sources) Sulfamethoxazole; Translations: [sulfamethoxazole] Drug Allergy 05-12-20 Unknown Reaction [facility] (11 sources) Trimethoprim; Translations: [trimethoprim] Drug Allergy 05-12-20 Unknown Reaction [facility] (20 sources) Bacitracin; Translations: [BACITRACIN] Drug Allergy 07-16-20 Itching, Swelling, Flushing [facility] (20 sources) Sulfamethoxazole / Trimethoprim; Translations: [SULFAMETHOXAZOLE-TR IMETHOPRIM] Drug Allergy 07-16-20 17 Anaphylaxis [facility] (3 sources) Amoxicillin; Translations: [amoxicillin] Drug Allergy 02-18-20 Unknown Reaction [facility] (5 sources) Clavulanate; Translations: [clavulanic acid] Drug Allergy 02-18-20 Unknown Reaction [facility] (1 source) mirabegron; Translations: [MIRABEGRON] Drug Allergy 06-05-20 [facility] Medications Current Medications Medication Drug Class(es) Dates Sig (Normalized) Sig (Original) acetaminophen 325 mg oral capsule (8 sources) Start: 01-27-2021 take 2 capsules by mouth every six hours Acetaminophen (Tylenol) 325 mg Capsule Active 650 MG PO Q6H January 27, 2021 12:00am ampicillin 500 mg oral capsule (3 sources) Penicillin-class Antibacterial Start: 01-27-2024 End: 02-03-2024 ampicillin (PRINCIPEN) 500 mg capsule Take 1 capsule (500 mg total) by mouth in the morning and 1 capsule (500 mg total) at noon and 1 capsule (500 mg total) in the evening and 1 capsule (500 mg total) before bedtime. Do all this for 7 days. 28 capsule 0 01/27/2024 02/03/2024 Active Aspirin (8 sources) Platelet Aggregation Inhibitor, Nonsteroidal Anti-inflammatory Drug Baby Aspirin Active atorvastatin 80 mg oral tablet (20 sources) HMG-CoA Reductase Inhibitor Start: 10-28-2023 End: 12-13-2023 take 80 mg by mouth once daily in the evening Atorvastatin Active 80 MG PO Every evening 90 October 28, 2023 1:00am Start: 12-19-2022 take 1 tablet by stan th every twenty-four hours Lipitor 40 MG 1 tablet Orally Once a day for 90 days Dec, Active cephalexin 500 mg oral capsule (2 sources) Cephalosporin Antibacterial Start: 12-27-2023 End: 01-03-2024 take 1 capsule by mouth three times daily CEPHalexin (KEFLEX) 500 mg capsule Take 1 capsule (500 mg total) by mouth 3 (three) times a day for 7 days. 21 capsule 0 12/27/2023 01/03/2024 Active clopidogrel 75 mg oral tablet (20 sources) [id number] Platelet Inhibitor Start: 01-27-2024 take 1 tablet by mouth once daily Clopidogrel Active 0 .ROUTE .COMPLEX January 27, 2024 2:28pm TAKE 1 TABLET BY MOUTH EVERY DAY Start: 01-27-2021 End: 01-27-2024 take 1 tablet by mouth once daily Clopidogrel (Plavix) 75 mg tablet Discontinued 75 MG PO Daily 90 March 28, 2022 12:00am January 27, 2024 2:28pm levothyroxine sodium 0.1 mg oral tablet (20 sources) l-Thyroxine Start: 10-14-2023 take 1 tablet by mouth in the morning SYNTHROID 100 mcg tablet TAKE 1 TABLET (100 MCG TOTAL) BY MOUTH IN THE MORNING 90 tablet 1 10/14/2023 Active Start: 01-27-2021 Levothyroxine (Synthroid) 100 mcg Tablet Active 75 MCG PO Daily January 27, 2021 12:00am Synthroid 100 MC G 1 tablet every morning on an empty stomach Orally Once a day for 30 days Active Synthroid 75 mcg 1 tablet every morning on an empty stomach Orally Once a day for 30 day(s) Active lisinopril 10 mg oral tablet (20 sources) Angiotensin Converting Enzyme Inhibitor Start: 01-13-2024 take 1 tablet by mouth in the morning lisinopriL (PRINIVIL,ZESTRIL) 10 mg tablet Take 1 tablet (10 mg total) by mouth in the morning. 90 tablet 3 01/13/2024 Active Start: 12-13-2023 End: 12-19-2023 take 1 tablet by mouth in the morning lisinopriL (PRINIVIL,ZESTRIL) 10 mg tablet TAKE 1 TABLET (10 MG TOTAL) BY MOUTH IN THE MORNING 90 tablet 3 12/16/2023 12/19/2023 Discontinued (Alternate therapy) Start: 10-25-2023 End: 10-28-2023 take 10 mg by mouth once daily Lisinopril Discontinued 10 MG PO 1 time daily October 25, 2023 1:00am October 28, 2023 10:50am NIFEdipine ER Osmotic Releas e (8 sources) NIFEdipine ER Os motic Release Active NIFEdipine ER Os motic Release Not-Taking nitrofurantoin, macrocrystals 25 mg / nitrofurantoin, monohydrate 75 mg oral capsule (2 sources) Nitrofuran Antibacterial Start: 01-28-2024 End: 02-04-2024 take 1 capsule by mouth in the morning, then take 1 capsule by mouth at bedtime nitrofurantoin, macrocrystal-monohydrate, (MACROBID) 100 mg capsule Take 1 capsule (100 mg total) by mouth in the morning and 1 capsule (100 mg total) before bedtime. Do all this for 7 days. 14 capsule 0 01/28/2024 02/04/2024 Active Omeprazole (8 sources) Proton Pump Inhibitor Omeprazole Active Omeprazole Not-T aking polysaccharide iron complex 150 mg oral capsule (10 sources) Start: 10-28-2023 End: 12-19-2023 Polysaccharide Iron Complex (Ferrex 150) 150 mg iron Capsule Active 150 MG PO Q48H October 28, 2023 1:00am rivaroxaban 2.5 mg oral tablet (20 sources) Factor Xa Inhibitor Start: 10-28-2023 End: 12-13-2023 take 1 tablet by mouth twice daily Rivaroxaban (Xarelto) 2.5 mg tablet Active 2.5 MG PO Twice daily 180 October 28, 2023 1:00am Vitamin B-12 1000 MCG (5 sources) take 1 tablet by mouth once daily Vitamin B-12 1000 MCG 1 tablet Orally Once a day for 30 day(s) Active Vitamin D 400 UNIT (8 sources) take 1 capsule by mouth once daily Vitamin D 400 UNIT 1 capsule Orally Once a day for 30 day(s) Active Completed/Discontinued Medications Medication Drug Class(es) Dates Sig (Normalized) Sig (Original) [id number] 200 actuat albuterol 0.09 mg/actuat metered dose inhaler (2 sources) beta2-Adrenergic Agonist Start: 06-07-2019 take 2 puff(s) by inhalation every four to six hours as needed ProAir HFA 108 (90 Base) MCG/ACT 2 puffs as needed Inhalation every 4-6 hrs May, Not-Taking aMILoride hydrochloride 5 mg oral tablet (8 sources) Potassium-sparing Diuretic Start: 01-27-2021 End: 03-28-2022 take 10 mg by mouth once daily Amiloride Discontinued 10 MG PO Daily January 27, 2021 12:00am March 28, 2022 11:43am benzonatate 200 mg oral capsule (5 sources) Non-narcotic Antitussive Start: 11-07-2023 End: 12-19-2023 take 1 capsule by mouth three times daily as needed for cough benzonatate (TESSALON PERLES) 200 mg capsule Take 1 capsule (200 mg total) by mouth 3 (three) times a day as needed for cough. 20 capsule 0 11/07/2023 12/19/2023 Discontinued (Alternate therapy) bisacodyl 10 mg rectal suppository (8 sources) Stimulant Laxative Start: 05-12-2021 End: 03-28-2022 Bisacodyl (Dulcolax (Bisacodyl)) 10 mg Suppository Discontinued 10 MG IL Once May 12, 2021 12:00am March 28, 2022 11:43am Collagen-Antimicrobi al Sheet (8 sources) Start: 05-12-2021 End: 03-28-2022 Collagen-Antimicro bial Sheet Discontinued 1 APPLIC TOPICAL As Directed May 11, 2021 11:00pm March 28, 2022 10:44am Qshift on odd days Start: 05-12-2021 End: 03-28-2022 Collagen-Antimicrobial Sheet Discontinued 1 APPLIC TOPICAL As Directed May 12, 2021 12:00am March 28, 2022 11:44am Qshift on odd days cranberry preparation 250 mg oral capsule (8 sources) Non-Standardized Food Allergenic Extract, Non-Standardized Plant Allergenic Extract Start: 05-12-2021 End: 03-28-2022 take 250 mg by mouth once daily Cranberry Extract Discontinued 250 MG PO Daily May 11, 2021 11:00pm March 28, 2022 10:44am Start: 05-12-2021 End: 03-28-2022 take 250 mg by mouth once daily Cranberry Extract Discontinued 250 MG PO Daily May 12, 2021 12:00am March 28, 2022 11:44am dextromethorphan hydrobromide 1.5 mg/ml / pyrilamine maleate 1.5 mg/ml oral solution (8 sources) Uncompetitive D-jqvrpd-Q-aspartate Receptor Antagonist, Sigma-1 Agonist Start: 06-07-2019 [place] DM 7.5-7.5 MG/5ML 5 ml Orally every 6-8 hours as needed for 8 days May, Not-Taking/PRN docusate sodium 100 mg oral capsule (8 sources) Start: 05-12-2021 End: 03-28-2022 take 1 capsule by mouth once daily Docusate Sodium (Colace) 100 mg Capsule Discontinued 100 MG PO Daily May 12, 2021 12:00am March 28, 2022 11:45am doxycycline hyclate 100 mg oral tablet (8 sources) Tetracycline-class Drug Start: 01-27-2021 End: 05-12-2021 take 100 mg by mouth twice daily Doxycycline Calcium Discontinued 100 MG PO Twice daily January 27, 2021 12:00am May 12, 2021 6:03pm gabapentin (8 sources) Anti-epileptic Agent Start: 01-27-2021 End: 03-28-2022 take 200 mg by mouth twice daily Gabapentin Discontinued 200 MG PO Twice daily January 26, 2021 11:00pm March 28, 2022 10:45am Start: 01-27-2021 End: 03-28-2022 take 200 mg by mouth twice daily Gabapentin Discontinued 200 MG PO Twice daily January 27, 2021 12:00am March 28, 2022 11:45am 12 hr guaiFENesin 1200 mg extended release oral tablet (5 sources) Start: 11-07-2023 End: 12-19-2023 guaiFENesin 1,200 mg tablet extended release 12hr Take 1,200 mg by mouth every 12 (twelve) hours. 14 each 0 11/07/2023 12/19/2023 Discontinued (Alternate therapy) hydroCHLOROthiazide 12.5 mg / valsartan 160 mg oral tablet (5 sources) Thiazide Diuretic, Angiotensin 2 Receptor Laura Start: 10-28-2023 End: 12-19-2023 valsartan-hydroCHLO ROthiazide (DIOVAN-HCT) 160-12.5 mg per tablet 1 tablet. 0 10/28/2023 12/19/2023 Discontinued (Alternate therapy) Start: 10-28-2023 take 1 tablet by stan th once daily Valsartan-Hydrochlorothiazide Active 1 T AB PO Daily October 28, 2023 1:00am Lactobacillus acidophilus (1 source) End: 12-19-2023 Lactobacillus acidophilus (ACIDOPHILUS ORAL) Take by mouth daily. 0 12/19/2023 Discontinued (Alternate therapy) lactobacillus acidophilus [id number] unt / pectin 10 mg oral capsule (8 sources) Start: 01-27-2021 End: 03-28-2022 take 1 capsule by mouth once daily Acidophilus-Pectin, [place] Discontinued 1 CAP PO Daily January 27, 2021 12:00am March 28, 2022 11:43am Medrol (Arian) 1 Pack (8 sources) Start: 06-07-2019 Medrol (Arian) 1 Pack as directed Orally May, Not-Taking/PRN Start: 06-07-2019 Start: 06-07-2019 Medrol (Arian) 1 Pack as directed Orally May, Not-Taking metroNIDAZOLE (8 sources) Nitroimidazole Antimicrobial met roNIDAZOLE Not-Taking/PRN metroNIDAZOLE No t-Taking mirtazapine 15 mg oral tablet (8 sources) Start: 01-27-2021 End: 03-28-2022 take 1 tablet by mouth once daily Mirtazapine (Remeron) 15 mg Tablet Discontinued 15 MG PO Daily January 27, 2021 12:00am March 28, 2022 11:45am oxybutynin (8 sources) Cholinergic Muscarinic Antagonist oxyBUTYnin Chloride Not-Taking/PRN oxyBUTYnin Chlor lee Not-Taking Oxybutynin Chlor lee Not-Taking oxyCODONE hydrochloride 5 mg oral tablet (8 sources) Opioid Agonist Start: 01-27-2021 End: 05-12-2021 take 5 mg by mouth every four hours Oxycodone Discontinued 5 MG PO Q4H January 27, 2021 12:00am May 12, 2021 6:05pm pantoprazole 40 mg delayed release oral tablet (5 sources) Proton Pump Inhibitor Start: 11-08-2023 End: 12-19-2023 take 1 tablet by mouth once daily before breakfast pantoprazole (PROTONIX) 40 mg EC tablet Take 1 tablet (40 mg total) by mouth every morning before breakfast. 30 tablet 2 11/08/2023 12/19/2023 Discontinued (Alternate therapy) polyethylene glycol 3350 [id number] mg powder for oral solution (8 sources) Osmotic Laxative Start: 01-27-2021 End: 03-28-2022 Polyethylene Glycol 3350 (Miralax) 17 gram Powder In Packet Discontinued 17 GM PO Daily January 27, 2021 12:00am March 28, 2022 11:45am ProAir HFA 108 (90 Base) MCG/ACT (6 sources) Start: 06-07-2019 take 2 puff(s) by inhalation every four to six hours as needed ProAir HFA 108 (90 Base) MCG/ACT 2 puffs as needed Inhalation every 4-6 hrs May, Not-Taking/PRN Start: 06-07-2019 take 2 puff(s) by in halation every four to six hours as needed ProAir HFA 108 (90 Base) MCG/ACT 2 puffs as needed Inhalation every 4-6 hrs May, Not-Taking Start: 06-07-2019 take 2 puff(s) by in halation every four to six hours as needed valsartan 160 mg oral tablet (13 sources) Angiotensin 2 Receptor Laura Start: 11-07-2023 End: 01-13-2024 take 1 tablet by mouth in the morning valsartan (DIOVAN) 160 mg tablet Take 1 tablet (160 mg total) by mouth in the morning. 0 12/13/2023 01/13/2024 Discontinued (Alternate therapy) vitamin b12 0.5 mg oral tablet (11 sources) Vitamin B12 Start: 01-27-2021 End: 03-28-2022 take 500 ug by mouth once daily Cyanocobalamin (Vitamin B-12) Discontinued 500 MCG PO Daily January 27, 2021 12:00am March 28, 2022 11:44am take 1 tablet by stan th every twenty-four hours Vitamin B-12 1000 MCG 1 tablet Orally Once a day for 30 day(s) Active take 1 tablet by stan th every twenty-four hours Vitamin B-12 1000 MCG 1 tablet Orally Once a day for 30 day(s) Active Problems Active Problems Problem Classification Problem Date Documented Da te Episodic/Chronic Acute cerebrovascular disease (20 sources) Cerebrovascular accident; Translations: [Cerebral infarction, unspecified] Onset: 3 01-23-2023 Chronic Anal and rectal conditions (1 source) Other specified diseases of anus and rectum; Translations: [Other specified diseases of anus and rectum] Onset: 4 Episodic Cardiac dysrhythmias (1 source) Unspecified atrial fibrillation; Translations: [Unspecified atrial fibrillation] Onset: 4 Chronic Chronic obstructive pulmonary disease and bronchiectasis (20 sources) Acute exacerbation of chronic obstructive airways disease; Translations: [Chronic obstructive pulmonary disease with (acute) exacerbation] Onset: 1 05-20-2021 Chronic Coronary atherosclerosis and other heart disease (1 source) Coronary atherosclerosis and other heart disease; Translations: [Atherosclerosis of [place] arteries of extremities with intermittent claudication, left leg] Onset: 3 E Codes: Adverse effects of medical drugs (1 source) Adverse effect of unspecified drugs, medicaments and biological substances, initial encounter; Translations: [Adverse effect of unspecified drugs, medicaments and biological substances, initial encounter] Onset: 4 Episodic Esophageal disorders (20 sources) Gastroesophageal reflux disease without esophagitis; Translations: [Gastro-esophageal reflux disease without esophagitis] Onset: 8 11-04-2023 Chronic Essential hypertension (20 sources) Essential (primary) hypertension; Translations: [Hypertensive disorder] Onset: 9 10-25-2023 Chronic Genitourinary congenital anomalies (20 sources) Congenital hydronephrosis; Translations: [Congenital hydronephrosis] Onset: 1 04-21-2021 Chronic Genitourinary symptoms and ill-defined conditions (20 sources) Urge incontinence of urine; Translations: [Urge incontinence] Onset: 1 04-21-2021 Chronic Genitourinary symptoms and ill-defined conditions (3 sources) Urinary frequency; Translations: [Frequency of micturition] Onset: 4 Episodic Late effects of cerebrovascular disease (20 sources) Sequela of cerebrovascular accident; Translations: [Unspecified sequelae of cerebral infarction] Onset: 3 07-26-2023 Chronic Mood disorders (8 sources) Depressive disorder; Translations: [Depression] 05-12-2021 Chronic Other bone disease and musculoskeletal deformities (20 sources) History of amputation of right leg through tibia and fibula; Translations: [Acquired absence of right leg below knee] Onset: 1 04-07-2021 Chronic Other bone disease and musculoskeletal deformities (1 source) Acquired absence of right leg below knee; Translations: [Acquired absence of right leg below knee] Onset: 1 Chronic Other circulatory disease (20 sources) Raynaud's disease; Translations: [Raynaud's syndrome without gangrene] Onset: 7 12-02-2020 Chronic Other circulatory disease (20 sources) Osler hemorrhagic telangiectasia syndrome; 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] Onset: 8 04-18-2018 Chronic Other circulatory disease (1 source) Hereditary hemorrhagic telangiectasia; 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] Onset: 8 Chronic Other connective tissue disease (4 sources) Foot pain; Translations: [Pain in left foot] 10-25-2023 Episodic Other diseases of kidney and ureters (20 sources) Nephrocalcinosis; Translations: [Other specified disorders of kidney and ureter] Onset: 7 04-21-2021 Chronic Other gastrointestinal disorders (8 sources) Dysphagia; Translations: [Dysphagia, unspecified] 01-27-2021 Episodic Other lower respiratory disease (1 source) Shortness of breath; Translations: [Shortness of breath] Onset: 4 Episodic Peripheral and visceral atherosclerosis (20 sources) Peripheral vascular disease, unspecified; Translations: [Peripheral vascular disease] Onset: 1 Resolved: 2 Chronic Residual codes; unclassified (2 sources) Other specified postprocedural states Onset: 2 Resolved: 2 Episodic Thyroid disorders (20 sources) Hypothyroidism; Translations: [Hypothyroidism, unspecified] Onset: 7 10-25-2023 Chronic Unclassified (1 source) Single subsegmental pulmonary embolism without acute cor pulmonale; Translations: [Single subsegmental pulmonary embolism without acute cor pulmonale] Onset: 1 Unclassified (1 source) Check up Onset: 4 Unclassified (1 source) Medication Reaction Onset: 4 Unclassified (1 source) Weakness - Generalized Onset: 3 Unclassified (1 source) ill Onset: 3 Urinary tract infections (20 sources) Recurrent urinary tract infection; Translations: [Urinary tract infection, site not specified] Onset: 7 04-21-2021 Episodic Viral infection (1 source) COVID-19; Translations: [COVID-19] Onset: 3 Past or Other Problems Problem Classification Problem Date Documented Date Episodic/Chronic Cardiac dysrhythmias (20 sources) Intermittent palpitations; Translations: [Palpitations] Onset: 07-06-2019 07-17-2019 Episodic Chronic ulcer of skin (20 sources) Pressure ulcer of left heel, unstageable; Translations: [Pressure ulcer, heel] Onset: 03-17-2021 Resolved: 04-07-2021 04-07-2021 Chronic Complications of surgical procedures or medical care (20 sources) Dehiscence of surgical wound; Translations: [Disruption of external operation (surgical) wound, not elsewhere classified, subsequent encounter] Onset: 03-17-2021 04-24-2021 Episodic Deficiency and other anemia (20 sources) Iron deficiency anemia; Translations: [Iron deficiency anemia, unspecified] Onset: 01-21-2023 01-21-2023 Episodic Intracranial injury (20 sources) Concussion with no loss of consciousness; Translations: [Concussion without loss of consciousness, initial encounter] Onset: 08-10-2020 08-10-2020 Episodic Malaise and fatigue (20 sources) Asthenia; Translations: [Weakness] Onset: 11-03-2023 11-04-2023 Episodic Mood disorders (20 sources) Mood disorders Onset: 10-24-2023 Resolved: 12-19-2023 10-24-2023 Nonspecific chest pain (20 sources) Chest wall pain; Translations: [Other chest pain] Onset: 05-21-2021 05-21-2021 Episodic Other circulatory disease (20 sources) Ischemic foot; Translations: [Other disorder of circulatory system] Onset: 01-10-2021 01-10-2021 Episodic Other circulatory disease (20 sources) History of cerebrovascular accident; Translations: [Personal history of transient ischemic attack (TIA), and cerebral infarction without residual deficits] Onset: 11-04-2023 11-04-2023 Episodic Other connective tissue disease (3 sources) Pain in left foot; Translations: [Unspecified circulatory system disorder] Onset: 10-25-2023 10-29-2023 Episodic Other connective tissue disease (20 sources) Neurological symptom; Translations: [Unspecified symptoms and signs involving the nervous system] Onset: 01-19-2023 01-23-2023 Episodic Other diseases of kidney and ureters (20 sources) Obstruction of pelviureteric junction; Translations: [Crossing vessel and stricture of ureter without hydronephrosis] Onset: 07-16-2017 01-28-2023 Episodic Other diseases of veins and lymphatics (20 sources) Venous stasis edema of bilateral lower limbs; Translations: [Venous insufficiency (chronic) (peripheral)] Onset: 11-23-2020 11-23-2020 Episodic Other nervous system disorders (20 sources) Impairment of balance; Translations: [Other abnormalities of gait and mobility] Onset: 08-10-2020 08-10-2020 Episodic Pulmonary heart disease (20 sources) Pulmonary embolism; Translations: [Single subsegmental pulmonary embolism without acute cor pulmonale] Onset: 05-19-2021 05-20-2021 Episodic Residual codes; unclassified (20 sources) H/O: urinary anomaly; Translations: [Personal history of other specified conditions] Onset: 07-16-2017 01-28-2023 Episodic Respiratory failure; insufficiency; arrest (adult) (20 sources) Acute respiratory failure; Translations: [Acute respiratory failure with hypoxia] Onset: 11-03-2023 11-04-2023 Episodic Spondylosis; intervertebral disc disorders; other back problems (20 sources) Neck pain; Translations: [Cervicalgia] Onset: 08-10-2020 08-10-2020 Episodic Viral infection (20 sources) Disease caused by 2019-nCoV; Translations: [COVID-19] Onset: 11-05-2023 11-05-2023 Episodic Results Test Name Value Interpretation Reference Range Facility BASIC METABOLIC PANLon 06-05 Anion gap [Moles/Vol] 9 mmol/L Normal 5-15 [facility] Comment on above: Performed By: #### C BCA, CMP, 3040-3, 13973-7, 93247-2, 54825-2, 44012-3, PINR, 94126-9, 39692-1 #### [facility] ([id number]) [address] [place] [address] 08688 Calcium [Mass/Vol] 9.1 mg/dL Normal 8.5-10.5 [facility] Comment on above: Performed By: #### C BCA, CMP, 3040-3, 63096-5, 35719-0, 50542-3, 31727-7, PINR, 57045-2, 34933-8 #### [facility] ([id number]) [address] [place] [address] [place] [address] Chloride [Moles/Vol] 97 mmol/L Low 98-[address] [facility] Comment on above: Performed By: #### C BCA, CMP, 3040-3, 72492-4, 02315-6, 36350-6, 01299-9, PINR, 32025-5, 62528-3 #### [facility] ([id number]) [address] [place] [address] [place] [address] CO2 [Moles/Vol] 23 mmol/L Normal 22-32 [facility] Comment on above: Performed By: #### C BCA, CMP, 3040-3, 96007-6, 07458-9, 02367-2, 76278-3, PINR, 19412-6, 56346-5 #### [facility] ([id number]) [address] [place] [address] 64384 Creatinine [Mass/Vol] 0.63 mg/dL Normal 0.40-1.00 [facility] Comment on above: Result Comment: METH OD TRACEABLE TO IDMS STANDARD Performed By: #### C BCA, CMP, 3040-3, 18063-8, 12388-9, 71502-4, 54302-7, PINR, 93446-9, 18932-1 #### [facility] ([id number]) [address] [place] [address] 14261 GFR/1.73 sq M.predicted among non-blacks MDRD (S/P/Bld) [Vol rate/Area] 87 mL/min/{1.73_m2} Normal >59 [facility] Comment on above: Result Comment: Reported eGFR is based on the CKD-EPI 2020 equation that does not use a race coefficient. Performed By: #### C BCA, CMP, 3040-3, 16259-1, 91270-3, 05499-1, 70882-8, PINR, 26743-6, 80530-8 #### [facility] ([id number]) [address] [place] [address] 31606 Glucose [Mass/Vol] 105 mg/dL High 65-99 [facility] Comment on above: Performed By: #### C BCA, CMP, 3040-3, 17134-9, 96702-8, 93914-8, 27491-0, PINR, 95676-2, 82310-9 #### [facility] ([id number]) [address] [place] [address] 78873 Potassium [Moles/Vol] 4.6 mmol/L Normal 3.5-5.0 [facility] Comment on above: Performed By: #### C BCA, CMP, 3040-3, 31509-3, 09106-7, 05763-4, 17272-0, PINR, 62914-1, 74595-5 #### [facility] ([id number]) [address] [place] [address] 41470 Sodium [Moles/Vol] 129 mmol/L Low 134-146 [facility] Comment on above: Performed By: #### C BCA, CMP, 3040-3, 89411-4, 89390-4, 44043-4, 86410-0, PINR, 23819-0, 89234-9 #### [facility] ([id number]) [address] [place] [address] [place] [address] Urea nitrogen [Mass/Vol] 27 mg/dL Normal 5-27 [facility] Comment on above: Performed By: #### C BCA, CMP, 3040-3, 91980-7, 07820-1, 43749-5, 74801-3, PINR, 33427-1, 56872-8 #### [facility] ([id number]) [address] [place] [address] 55724 CBC AND AUTO DIFFon 06-05-20 24 ABSOLUTE BASOPHIL 0.1 X10E9/L Normal 0.0-0.2 [facility] Comment on above: Performed By: #### C BCA, CMP, 3040-3, 70779-3, 18500-2, 05460-7, 74933-3, PINR, 33269-9, 34126-9 #### [facility] ([id number]) [address] [place] [address] 46518 ABSOLUTE NEUTROPHIL 3.1 X10E9/L Normal 1.5-6.[address] [facility] Comment on above: Performed By: #### C BCA, CMP, 3040-3, 31353-5, 68160-8, 42419-5, 18117-7, PINR, 85285-6, 28536-3 #### [facility] ([id number]) [address] [place] [address] 60389 Basophils/100 WBC (Bld) 1.3 % Normal [facility] Comment on above: Performed By: #### C BCA, CMP, 3040-3, 25574-5, 37163-3, 74200-9, 53515-7, PINR, 74799-9, 68581-9 #### [facility] ([id number]) [address] [place] [address] 66283 Eosinophils (Bld) [#/Vol] 0.1 10*3/uL Normal 0.0-0.4 [facility] Comment on above: Performed By: #### C BCA, CMP, 3040-3, 17728-5, 80513-7, 44161-5, 13542-7, PINR, 27161-6, 04301-6 #### [facility] ([id number]) [address] [place] [address] 18176 Eosinophils/100 WBC (Bld) 2.5 % Normal [facility] Comment on above: Performed By: #### C BCA, CMP, 3040-3, 42519-1, 69508-4, 41359-7, 68479-1, PINR, 85301-2, 58863-9 #### [facility] ([id number]) [address] [place] [address] 53954 Erythrocyte distribution width (RBC) [Ratio] 18.8 % High 11.5-15.0 [facility] Comment on above: Performed By: #### C BCA, CMP, 3040-3, 09892-4, 79741-5, 29205-0, 64892-6, PINR, 54208-2, 50195-3 #### [facility] ([id number]) [address] [place] [address] 74127 Hematocrit (Bld) [Volume fraction] 37.7 % Normal 35-47 [facility] Comment on above: Performed By: #### C BCA, CMP, 3040-3, 31748-7, 84290-8, 28441-4, 45259-4, PINR, 43345-5, 38644-2 #### [facility] ([id number]) [address] [place] [address] 44648 Hemoglobin (Bld) [Mass/Vol] 12.0 g/dL Normal 11.7-15.5 [facility] Comment on above: Performed By: #### C BCA, CMP, 3040-3, 85583-5, 11340-4, 49112-1, 61101-5, PINR, 01186-7, 65615-8 #### [facility] ([id number]) [address] [place] [address] 15598 Lymphocytes (Bld) [#/Vol] 0.8 10*3/uL Low 1.0-3.5 [facility] Comment on above: Performed By: #### C BCA, CMP, 3040-3, 65462-1, 04875-6, 74204-0, 20196-2, PINR, 25569-7, 21767-1 #### [facility] ([id number]) [address] [place] [address] 24770 Lymphocytes/100 WBC (Bld) 18.5 % Normal [facility] Comment on above: Performed By: #### C BCA, CMP, 3040-3, 34747-6, 25770-4, 06191-5, 64492-2, PINR, 98469-1, 01286-8 #### [facility] ([id number]) [address] [place] [address] [place] [address] MCH (RBC) [Entitic mass] 23.8 pg Low 27-34 [facility] Comment on above: Performed By: #### C BCA, CMP, 3040-3, 56941-2, 07726-4, 03489-9, 03616-0, PINR, 04299-7, 27061-3 #### [facility] ([id number]) [address] [place] [address], [place] [address] MCHC (RBC) [Mass/Vol] 31.9 g/dL Low 32-36 [facility] Comment on above: Performed By: #### C BCA, CMP, 3040-3, 24882-2, 70475-7, 10151-1, 59839-7, PINR, 23034-5, 01280-3 #### [facility] ([id number]) [address] [place] [address] 49672 MCV (RBC) [Entitic vol] 75 fL Low 80-100 [facility] Comment on above: Performed By: #### C BCA, CMP, 3040-3, 98390-5, 64498-0, 34662-5, 97136-4, PINR, 20753-7, 87957-0 #### [facility] ([id number]) [address] [place] [address] 75432 Monocytes (Bld) [#/Vol] 0.4 10*3/uL Normal 0-0.9 [facility] Comment on above: Performed By: #### C BCA, CMP, 3040-3, 20010-4, 12536-5, 68914-6, 26858-1, PINR, 30982-9, 31911-0 #### [facility] ([id number]) [address] [place] [address] 35377 Monocytes/100 WBC (Bld) 9.7 % Normal [facility] Comment on above: Performed By: #### C BCA, CMP, 3040-3, 13102-1, 15028-3, 33636-6, 01334-7, PINR, 87537-0, 21198-0 #### [facility] ([id number]) [address] [place] [address] 55479 Neutrophils/100 WBC (Bld) 68.0 % Normal [facility] Comment on above: Performed By: #### C BCA, CMP, 3040-3, 33397-0, 00132-3, 30411-8, 88740-9, PINR, 81322-9, 42539-0 #### [facility] ([id number]) [address] [place] [address] 23785 Platelet mean volume (Bld) [Entitic vol] 8.2 fL Normal 7-12 [facility] Comment on above: Performed By: #### C BCA, CMP, 3040-3, 92346-5, 39273-4, 19963-0, 89158-0, PINR, 26077-3, 88950-1 #### [facility] ([id number]) [address] [place] [address] 45242 Platelets (Bld) [#/Vol] 587 10*3/uL High 150-450 [facility] Comment on above: Performed By: #### C BCA, CMP, 3040-3, 60632-8, 09746-1, 90492-3, 21541-7, PINR, 64240-0, 37929-2 #### [facility] ([id number]) [address] [place] [address] 96314 RBC COUNT 5.04 X10E12/L Normal 3.80-5.20 [facility] Comment on above: Performed By: #### C BCA, CMP, 3040-3, 18737-7, 31294-7, 52017-0, 38734-0, PINR, 21947-6, 67088-6 #### [facility] ([id number]) [address] [place] [address] 62527 WBC (Bld) [#/Vol] 4.5 10*3/uL Normal 4.0-11.0 [facility] Comment on above: Performed By: #### C BCA, CMP, 3040-3, 77938-9, 09342-2, 26568-7, 97202-3, PINR, 19694-9, 73459-6 #### [facility] ([id number]) [address] [place] [address] 57299 XR CHEST 1 VWon 06-05-2024 XR CHEST 1 VW XR CHEST 1 VW History: difficulty swallowing Exam/Technique: Single AP view of the chest was obtained Comparison: Chest x-ray 11/07/2023 Findings: Cardiac size is within normal range. There are bilateral apical pleural-parenchymal opacities likely scarring with mild perihilar infiltration. There is no gross new focal areas of consolidation, pleural effusion or pneumothorax. IMPRESSION: Stable chronic parenchymal changes primarily at both upper lobes likely scarring with mild vascular congestion Finalized by Asif Inman MD on 06/05/2024 5:40 PM Normal [facility] URINALYSISon 05-21-2024 Bilirubin Ql (U) Negative Normal [facility]G [facility] Comment on above: Performed By: #### C BCA, CMP, 3040-3, 07338-6, 28633-5, 60523-0, 48282-5, PINR, 27628-0, 55605-3 #### [facility] ([id number]) [address] [place] [address] 21633 BLOOD/HGB Negative Normal NEG [facility] Comment on above: Performed By: #### C BCA, CMP, 3040-3, 18812-4, 92983-0, 38977-3, 18302-2, PINR, 56944-8, 05023-2 #### [facility] ([id number]) [address] [place] [address] 88492 Color (U) YELLOW Normal YELLOW [facility] Comment on above: Performed By: #### C BCA, CMP, 3040-3, 41790-0, 68776-2, 33640-3, 91544-3, PINR, 68276-9, 47509-4 #### [facility] ([id number]) [address] [place] [address] 28093 Glucose Ql (U) Negative Normal NEG [facility] Comment on above: Performed By: #### C BCA, CMP, 3040-3, 02475-3, 29791-0, 33732-2, 02332-9, PINR, 59533-6, 91482-8 #### [facility] ([id number]) [address] [place] [address] 47642 Ketones Ql (U) Negative Normal NEG [facility] Comment on above: Performed By: #### C BCA, CMP, 3040-3, 65088-4, 54368-7, 86140-7, 68036-1, PINR, 63894-0, 73136-3 #### [facility] ([id number]) [address] [place] [address] 72430 Leukocyte esterase Test strip Ql (U) Negative Normal NEG [facility] Comment on above: Performed By: #### C BCA, CMP, 3040-3, 89272-4, 94904-6, 70205-2, 90252-9, PINR, 66740-3, 73933-7 #### [facility] ([id number]) [address] [place] [address] 79433 Nitrite Ql (U) Negative Normal NEG [facility] Comment on above: Performed By: #### C BCA, CMP, 3040-3, 49578-5, 02199-6, 21509-5, 31017-9, PINR, 71428-3, 04858-3 #### [facility] ([id number]) [address] [place] [address] 92410 pH (U) 6.5 [pH] Normal 5.0-8.5 [facility] Comment on above: Performed By: #### C BCA, CMP, 3040-3, 71900-6, 91631-5, 24607-5, 54422-6, PINR, 18805-7, 19838-7 #### [facility] ([id number]) [address] [place] [address] 96266 Protein Ql (U) Negative Normal NEG [facility] Comment on above: Performed By: #### C BCA, CMP, 3040-3, 82886-7, 52681-5, 26100-0, 02980-2, PINR, 74240-3, 94337-2 #### [facility] ([id number]) [address] [place] [address] 57290 Specific gravity (U) [Rel density] 1.008 Normal 1.003-1.035 [facility] Comment on above: Performed By: #### C BCA, CMP, 3040-3, 83585-4, 91867-9, 51948-8, 83208-0, PINR, 03480-5, 66569-1 #### [facility] ([id number]) [address] [place] [address] 23843 TURBIDITY CLEAR Normal CLEAR [facility] Comment on above: Performed By: #### C BCA, CMP, 3040-3, 24281-7, 88741-1, 15626-4, 63897-4, PINR, 49302-8, 15455-9 #### [facility] ([id number]) [address] [place] [address] 55594 Urinalysis dipstick W Reflex Microscopic panel (U) URINE RECEIVED WITHOUT PRESERVATIVE-DELAYS IN TRANSPORT MAY AFFECT RESULTS.INTERPRET WITH CAUTION AND CLINICAL CORRELATION IS RECOMMENDED. Normal [facility] Comment on above: Performed By: #### C BCA, CMP, 3040-3, 08764-5, 40112-8, 76601-1, 85640-6, PINR, 48438-1, 35361-5 #### [facility] ([id number]) [address] [place] [address] 22583 Urobilinogen (U) [Mass/Vol] mg/dL Normal <1.1 [facility] Comment on above: Performed By: #### C BCA, CMP, 3040-3, 42481-9, 90060-6, 91746-7, 05034-4, PINR, 88290-8, 78696-4 #### [facility] ([id number]) [address] [place] [address] 85460 URINE CULTUREon 05-21-2024 Bacteria identified Cx Nom (U) SPECIMEN NOTES URINE RECEIVED WITHOUT PRESERVATIVE CULTURE RESULTS 10-50,000 ORGANISMS/mL NORMAL UROGENITAL ALEX Normal [facility] Comment on above: Performed By: #### C BCA, CMP, 3040-3, 15160-5, 30334-7, 44138-2, 01344-9, PINR, 96440-1, 89658-6 #### [facility] ([id number]) [address] [place] [address] 11239 CBC AND AUTO DIFFon 05-13-20 24 ABSOLUTE BASOPHIL 0.0 X10E9/L Normal 0.0-0.2 [facility] Comment on above: Performed By: #### C BCA, CMP, 3040-3, 92027-3, 84308-3, 39683-2, 69401-0, PINR, 55286-7, 86411-5 #### [facility] ([id number]) [address] [place] [address] 46178 ABSOLUTE NEUTROPHIL 4.1 X10E9/L Normal 1.5-6.[address] [facility] Comment on above: Performed By: #### C BCA, CMP, 3040-3, 28548-3, 71924-2, 13269-0, 50152-1, PINR, 84443-3, 77701-0 #### [facility] ([id number]) [address] [place] [address] 91057 Basophils/100 WBC (Bld) 0.7 % Normal [facility] Comment on above: Performed By: #### C BCA, CMP, 3040-3, 87523-5, 97430-1, 16769-2, 68541-3, PINR, 24670-4, 92480-4 #### [facility] ([id number]) [address] [place] [address] 74131 Eosinophils (Bld) [#/Vol] 0.3 10*3/uL Normal 0.0-0.4 [facility] Comment on above: Performed By: #### C BCA, CMP, 3040-3, 84399-0, 61380-4, 73519-8, 70936-4, PINR, 75874-9, 20913-9 #### [facility] ([id number]) [address] [place] [address] 42038 Eosinophils/100 WBC (Bld) 5.8 % Normal [facility] Comment on above: Performed By: #### C BCA, CMP, 3040-3, 51458-6, 59529-1, 60615-5, 44578-0, PINR, 23239-5, 31818-4 #### [facility] ([id number]) [address] [place] [address] 56343 Erythrocyte distribution width (RBC) [Ratio] 17.0 % High 11.5-15.0 [facility] Comment on above: Performed By: #### C BCA, CMP, 3040-3, 36639-9, 01540-6, 25600-0, 27840-6, PINR, 32885-0, 04704-0 #### [facility] ([id number]) [address] [place] [address] 80868 Hematocrit (Bld) [Volume fraction] 37.8 % Normal 35-47 [facility] Comment on above: Performed By: #### C BCA, CMP, 3040-3, 95353-8, 67065-2, 77057-2, 26530-3, PINR, 37120-8, 47959-9 #### [facility] ([id number]) [address] [place] [address] 24565 Hemoglobin (Bld) [Mass/Vol] 12.3 g/dL Normal 11.7-15.5 [facility] Comment on above: Performed By: #### C BCA, CMP, 3040-3, 61804-7, 48621-2, 49161-6, 73383-4, PINR, 93277-4, 83076-4 #### [facility] ([id number]) [address] [place] [address] 20135 Lymphocytes (Bld) [#/Vol] 0.7 10*3/uL Low 1.0-3.5 [facility] Comment on above: Performed By: #### C BCA, CMP, 3040-3, 32214-1, 51647-6, 12815-1, 08025-2, PINR, 48753-6, 54344-6 #### [facility] ([id number]) [address] [place] [address] 90447 Lymphocytes/100 WBC (Bld) 12.5 % Normal [facility] Comment on above: Performed By: #### C BCA, CMP, 3040-3, 80097-5, 23874-4, 21593-9, 94402-0, PINR, 69687-1, 25070-7 #### [facility] ([id number]) [address] [place] [address] 03360 MCH (RBC) [Entitic mass] 24.1 pg Low 27-34 [facility] Comment on above: Performed By: #### C BCA, CMP, 3040-3, 38402-1, 03241-6, 41205-6, 69397-1, PINR, 05169-6, 88826-3 #### [facility] ([id number]) [address] [place] [address] 99326 MCHC (RBC) [Mass/Vol] 32.6 g/dL Normal 32-36 [facility] Comment on above: Performed By: #### C BCA, CMP, 3040-3, 20427-0, 12208-8, 19635-1, 97144-8, PINR, 49817-4, 46991-9 #### [facility] ([id number]) [address] [place] [address] 66640 MCV (RBC) [Entitic vol] 74 fL Low 80-100 [facility] Comment on above: Performed By: #### C BCA, CMP, 3040-3, 58803-7, 58207-7, 54302-7, 77980-5, PINR, 03866-6, 77982-0 #### [facility] ([id number]) [address] [place] [address] [place] [address] Monocytes (Bld) [#/Vol] 0.5 10*3/uL Normal 0-0.9 [facility] Comment on above: Performed By: #### C BCA, CMP, 3040-3, 16033-7, 73637-4, 27316-2, 06416-2, PINR, 06573-1, 79348-3 #### [facility] ([id number]) [address] [place] [address] [place] [address] Monocytes/100 WBC (Bld) 8.8 % Normal [facility] Comment on above: Performed By: #### C BCA, CMP, 3040-3, 67672-6, 13421-9, 78598-2, 02236-5, PINR, 02688-4, 74809-9 #### [facility] ([id number]) [address] [place] [address], [place] [address] Neutrophils/100 WBC (Bld) 72.2 % Normal [facility] Comment on above: Performed By: #### C BCA, CMP, 3040-3, 69896-2, 68865-7, 36072-4, 86837-9, PINR, 48143-7, 81011-4 #### [facility] ([id number]) [address] [place] [address], [place] [address] Platelet mean volume (Bld) [Entitic vol] 8.0 fL Normal 7-12 [facility] Comment on above: Performed By: #### C BCA, CMP, 3040-3, 79094-2, 90693-7, 08764-9, 37407-5, PINR, 07159-6, 53231-9 #### [facility] ([id number]) [address] [place] [address] 64886 Platelets (Bld) [#/Vol] 587 10*3/uL High 150-450 [facility] Comment on above: Performed By: #### C BCA, CMP, 3040-3, 33315-7, 58090-1, 16666-1, 65882-9, PINR, 43881-6, 90389-0 #### [facility] ([id number]) [address] [place] [address] 11847 RBC COUNT 5.10 X10E12/L Normal 3.80-5.20 [facility] Comment on above: Performed By: #### C BCA, CMP, 3040-3, 15802-7, 90014-8, 13508-0, 52436-1, PINR, 39431-6, 26349-3 #### [facility] ([id number]) [address] [place] [address] 51917 WBC (Bld) [#/Vol] 5.6 10*3/uL Normal 4.0-11.0 [facility] Comment on above: Performed By: #### C BCA, CMP, 3040-3, 30494-9, 14756-9, 77747-1, 54321-3, PINR, 86755-7, 78222-4 #### [facility] ([id number]) [address] [place] [address] 22044 COMPREHENSIVE METABOLIC PANE Nick 05-13-2024 Albumin [Mass/Vol] 3.0 g/dL Low 3.2-5.3 [facility] Comment on above: Performed By: #### C BCA, CMP, 3040-3, 50081-2, 11143-6, 31628-2, 48148-4, PINR, 37373-0, 81837-3 #### [facility] ([id number]) [address] [place] [address] 83489 ALP [Catalytic activity/Vol] 105 U/L Normal 39-130 [facility] Comment on above: Performed By: #### C BCA, CMP, 3040-3, 11657-0, 89349-7, 85475-0, 85621-6, PINR, 27634-0, 26564-1 #### [facility] ([id number]) [address] [place] [address] 24252 ALT [Catalytic activity/Vol] 21 U/L Normal 0-31 [facility] Comment on above: Performed By: #### C BCA, CMP, 3040-3, 47200-0, 54434-4, 87378-3, 73032-8, PINR, 19658-2, 31673-1 #### [facility] ([id number]) [address] [place] [address] 74667 Anion gap [Moles/Vol] 6 mmol/L Normal 5-15 [facility] Comment on above: Performed By: #### C BCA, CMP, 3040-3, 33008-7, 29049-4, 52469-5, 19686-6, PINR, 73326-9, 32102-4 #### [facility] ([id number]) [address] [place] [address] 94222 AST [Catalytic activity/Vol] 26 U/L Normal 0-41 [facility] Comment on above: Performed By: #### C BCA, CMP, 3040-3, 78824-8, 01496-6, 13509-4, 85006-9, PINR, 02177-2, 26376-4 #### [facility] ([id number]) [address] [place] [address] 31578 Bilirubin [Mass/Vol] 0.5 mg/dL Normal 0.3-1.[address] [facility] Comment on above: Performed By: #### C BCA, CMP, 3040-3, 83876-6, 17729-2, 60286-8, 93358-4, PINR, 68147-7, 87132-1 #### [facility] ([id number]) [address] [place] [address] 42867 Calcium [Mass/Vol] 8.2 mg/dL Low 8.5-10.5 [facility] Comment on above: Performed By: #### C BCA, CMP, 3040-3, 44488-2, 80577-5, 51213-3, 38537-6, PINR, 86634-8, 14024-9 #### [facility] ([id number]) [address] [place] [address] 70510 Chloride [Moles/Vol] 99 mmol/L Normal 98-[address] [facility] Comment on above: Performed By: #### C BCA, CMP, 3040-3, 78404-2, 15031-9, 90659-6, 72329-7, PINR, 97417-2, 47859-3 #### [facility] ([id number]) [address] [place] [address] 93069 CO2 [Moles/Vol] 24 mmol/L Normal 22-32 [facility] Comment on above: Performed By: #### C BCA, CMP, 3040-3, 47998-5, 28324-7, 02780-0, 39248-7, PINR, 60594-8, 22212-3 #### [facility] ([id number]) [address] [place] [address] 72348 Creatinine [Mass/Vol] 0.55 mg/dL Normal 0.40-1.00 [facility] Comment on above: Result Comment: METH OD TRACEABLE TO IDMS STANDARD Performed By: #### C BCA, CMP, 3040-3, 29790-0, 88172-0, 35020-1, 97725-4, PINR, 27206-7, 46602-0 #### [facility] ([id number]) [address] [place] [address] 23033 eGFR (CKD-EPI) NON-RACE DEPENDENT >90 Normal >59 [facility] Comment on above: Result Comment: Reported eGFR is based on the CKD-EPI 2020 equation that does not use a race coefficient. Performed By: #### C BCA, CMP, 3040-3, 00585-0, 61233-1, 18518-4, 87847-0, PINR, 25483-9, 48612-2 #### [facility] ([id number]) [address] [place] [address] 11157 Glucose [Mass/Vol] 103 mg/dL High 65-99 [facility] Comment on above: Performed By: #### C BCA, CMP, 3040-3, 83413-4, 12599-6, 78100-2, 53472-3, PINR, 08835-2, 18560-2 #### [facility] ([id number]) [address] [place] [address] 78337 Potassium [Moles/Vol] 4.3 mmol/L Normal 3.5-5.0 [facility] Comment on above: Performed By: #### C BCA, CMP, 3040-3, 74100-0, 69935-6, 62790-4, 98033-4, PINR, 87724-3, 52967-7 #### [facility] ([id number]) [address] [place] [address] 92687 Protein [Mass/Vol] 6.3 g/dL Normal 6.0-8.0 [facility] [facility] Comment on above: Performed By: #### C BCA, CMP, 3040-3, 83343-4, 14743-0, 73010-0, 27623-4, PINR, 98410-8, 47862-0 #### [facility] ([id number]) [address] [place] [address] 13383 Sodium [Moles/Vol] 129 mmol/L Low 134-146 [facility] Comment on above: Performed By: #### C BCA, CMP, 3040-3, 81041-9, 80304-1, 90767-1, 42887-4, PINR, 55982-6, 86776-1 #### [facility] ([id number]) [address] [place] [address] 23741 Urea nitrogen [Mass/Vol] 14 mg/dL Normal 5-27 [facility] Comment on above: Performed By: #### C BCA, CMP, 3040-3, 49728-9, 13752-9, 02944-2, 20405-7, PINR, 04718-6, 25884-6 #### [facility] ([id number]) [address] [place] [address] 67305 MAGNESIUMon 05-13-2024 Magnesium [Mass/Vol] 2.1 mg/dL Normal 1.8-2.[address] [facility] Comment on above: Performed By: #### C BCA, CMP, 3040-3, 83809-3, 15468-2, 29204-4, 00645-0, PINR, 47705-4, 19657-2 #### [facility] ([id number]) [address] [place] [address] 93501 CBC AND AUTO DIFFon 05-12-20 24 ABSOLUTE BASOPHIL 0.0 X10E9/L Normal 0.0-0.2 [facility] Comment on above: Performed By: #### C BCA, CMP, 3040-3, 26286-8, 89588-1, 63500-3, 39782-6, PINR, 90142-9, 62223-8 #### [facility] ([id number]) [address] [place] [address] 55853 ABSOLUTE NEUTROPHIL 5.5 X10E9/L Normal 1.5-6.[address] [facility] Comment on above: Performed By: #### C BCA, CMP, 3040-3, 78391-4, 22309-5, 81537-0, 59671-8, PINR, 17390-3, 09657-1 #### [facility] ([id number]) [address] [place] [address] 50741 Basophils/100 WBC (Bld) 0.7 % Normal [facility] Comment on above: Performed By: #### C BCA, CMP, 3040-3, 33356-0, 84473-4, 30041-5, 69534-2, PINR, 07670-9, 03257-9 #### [facility] ([id number]) [address] [place] [address] 37228 Eosinophils (Bld) [#/Vol] 0.3 10*3/uL Normal 0.0-0.4 [facility] Comment on above: Performed By: #### C BCA, CMP, 3040-3, 59446-0, 03853-8, 46445-9, 75064-3, PINR, 19974-2, 34925-0 #### [facility] ([id number]) [address] [place] [address] 84547 Eosinophils/100 WBC (Bld) 3.9 % Normal [facility] Comment on above: Performed By: #### C BCA, CMP, 3040-3, 76744-1, 05126-9, 06939-1, 14694-7, PINR, 25411-4, 54986-6 #### [facility] ([id number]) [address] [place] [address] [place] [address] Erythrocyte distribution width (RBC) [Ratio] 16.7 % High 11.5-15.0 [facility] Comment on above: Performed By: #### C BCA, CMP, 3040-3, 74801-1, 06557-6, 71865-4, 12316-4, PINR, 39989-7, 20036-6 #### [facility] ([id number]) [address] [place] [address] Hematocrit (Bld) [Volume fraction] 37.0 % Normal 35-47 [facility] Comment on above: Performed By: #### C BCA, CMP, 3040-3, 81754-9, 86726-4, 98742-8, 80082-0, PINR, 94059-4, 78631-9 #### [facility] ([id number]) [address] [place] [address] 56484 Hemoglobin (Bld) [Mass/Vol] 11.9 g/dL Normal 11.7-15.5 [facility] Comment on above: Performed By: #### C BCA, CMP, 3040-3, 35346-7, 73928-5, 43224-9, 33971-2, PINR, 71524-9, 78399-6 #### [facility] ([id number]) [address] [place] [address] 30245 Lymphocytes (Bld) [#/Vol] 0.6 10*3/uL Low 1.0-3.5 [facility] Comment on above: Performed By: #### C BCA, CMP, 3040-3, 89273-8, 82629-5, 03446-5, 13426-3, PINR, 48194-7, 64818-4 #### [facility] ([id number]) [address] [place] [address] 02183 Lymphocytes/100 WBC (Bld) 8.8 % Normal [facility] Comment on above: Performed By: #### C BCA, CMP, 3040-3, 38807-1, 88999-4, 57813-3, 35264-3, PINR, 73613-7, 49906-2 #### [facility] ([id number]) [address] [place] [address] 44361 MCH (RBC) [Entitic mass] 23.8 pg Low 27-34 [facility] Comment on above: Performed By: #### C BCA, CMP, 3040-3, 26035-9, 61921-0, 10050-0, 01394-8, PINR, 92148-5, 31338-4 #### [facility] ([id number]) [address] [place] [address] 04820 MCHC (RBC) [Mass/Vol] 32.1 g/dL Normal 32-36 [facility] Comment on above: Performed By: #### C BCA, CMP, 3040-3, 70727-3, 85366-6, 63082-9, 65228-8, PINR, 21357-9, 19101-8 #### [facility] ([id number]) [address] [place] [address] 44338 MCV (RBC) [Entitic vol] 74 fL Low 80-100 [facility] Comment on above: Performed By: #### C BCA, CMP, 3040-3, 43241-6, 07068-8, 58165-3, 13546-6, PINR, 78316-1, 16506-2 #### [facility] ([id number]) [address] [place] [address] 68939 Monocytes (Bld) [#/Vol] 0.5 10*3/uL Normal 0-0.9 [facility] Comment on above: Performed By: #### C BCA, CMP, 3040-3, 25529-4, 61088-1, 71073-9, 00986-3, PINR, 37611-6, 13947-7 #### [facility] ([id number]) [address] [place] [address] 42989 Monocytes/100 WBC (Bld) 7.1 % Normal [facility] Comment on above: Performed By: #### C BCA, CMP, 3040-3, 75368-4, 29426-3, 99021-1, 72251-7, PINR, 88439-6, 37824-0 #### [facility] ([id number]) [address] [place] [address] 09060 Neutrophils/100 WBC (Bld) 79.5 % Normal [facility] Comment on above: Performed By: #### C BCA, CMP, 3040-3, 58268-0, 40056-6, 11994-1, 79243-5, PINR, 54145-1, 24906-4 #### [facility] ([id number]) [address] [place] [address] 84937 Platelet mean volume (Bld) [Entitic vol] 8.3 fL Normal 7-12 [facility] Comment on above: Performed By: #### C BCA, CMP, 3040-3, 88262-8, 97029-6, 31426-0, 86667-9, PINR, 72131-6, 37629-3 #### [facility] ([id number]) [address] [place] [address] 37406 Platelets (Bld) [#/Vol] 613 10*3/uL High 150-450 [facility] Comment on above: Performed By: #### C BCA, CMP, 3040-3, 55466-1, 30190-2, 97824-1, 49801-9, PINR, 76410-7, 55565-6 #### [facility] ([id number]) [address] [place] [address] 59075 RBC COUNT 4.99 X10E12/L Normal 3.80-5.20 [facility] Comment on above: Performed By: #### C BCA, CMP, 3040-3, 77500-9, 01968-4, 02904-9, 69537-4, PINR, 63859-4, 27357-0 #### [facility] ([id number]) [address] [place] [address] 29426 WBC (Bld) [#/Vol] 7.0 10*3/uL Normal 4.0-11.0 [facility] Comment on above: Performed By: #### C BCA, CMP, 3040-3, 07954-8, 89740-0, 47443-4, 18428-8, PINR, 43799-1, 80369-5 #### [facility] ([id number]) [address] [place] [address] 39100 COMPREHENSIVE METABOLIC PANE Nick 05-12-2024 Albumin [Mass/Vol] 3.3 g/dL Normal 3.2-5.3 [facility] Comment on above: Performed By: #### C BCA, CMP, 3040-3, 20120-5, 58740-5, 38028-5, 91648-1, PINR, 86104-1, 62307-1 #### [facility] ([id number]) [address] [place] [address] 71288 ALP [Catalytic activity/Vol] 106 U/L Normal 39-130 [facility] Comment on above: Performed By: #### C BCA, CMP, 3040-3, 40332-5, 41260-2, 54335-5, 21974-9, PINR, 86060-9, 05914-4 #### [facility] ([id number]) [address] [place] [address] 41243 ALT [Catalytic activity/Vol] 22 U/L Normal 0-31 [facility] Comment on above: Performed By: #### C BCA, CMP, 3040-3, 59723-3, 93843-5, 52474-2, 02710-3, PINR, 06150-3, 04521-3 #### [facility] ([id number]) [address] [place] [address] 59622 Anion gap [Moles/Vol] 8 mmol/L Normal 5-15 [facility] Comment on above: Performed By: #### C BCA, CMP, 3040-3, 72975-2, 66979-3, 52456-7, 86358-2, PINR, 51503-2, 41435-5 #### [facility] ([id number]) [address] [place] [address] 38120 AST [Catalytic activity/Vol] 28 U/L Normal 0-41 [facility] Comment on above: Performed By: #### C BCA, CMP, 3040-3, 11786-2, 29189-9, 28431-9, 10589-9, PINR, 77639-5, 11955-2 #### [facility] ([id number]) [address] [place] [address] 32251 Bilirubin [Mass/Vol] 0.6 mg/dL Normal 0.3-1.[address] [facility] Comment on above: Performed By: #### C BCA, CMP, 3040-3, 66361-0, 01127-8, 98375-8, 64258-3, PINR, 73611-9, 24142-0 #### [facility] ([id number]) [address] [place] [address] 63574 Calcium [Mass/Vol] 8.3 mg/dL Low 8.5-10.5 [facility] Comment on above: Performed By: #### C BCA, CMP, 3040-3, 67907-1, 38132-3, 76578-0, 02082-9, PINR, 20911-5, 81391-8 #### [facility] ([id number]) [address] [place] [address] 35422 Chloride [Moles/Vol] 101 mmol/L Normal 98-[address] [facility] Comment on above: Performed By: #### C BCA, CMP, 3040-3, 48130-9, 80456-5, 23291-7, 48603-0, PINR, 56592-9, 16335-0 #### [facility] ([id number]) [address] [place] [address] CO2 [Moles/Vol] 24 mmol/L Normal 22-32 [facility] Comment on above: Performed By: #### C BCA, CMP, 3040-3, 44533-3, 31488-5, 62713-1, 11947-2, PINR, 93851-9, 52298-3 #### [facility] ([id number]) [address] [place] [address] 32766 Creatinine [Mass/Vol] 0.57 mg/dL Normal 0.40-1.00 [facility] Comment on above: Result Comment: METH OD TRACEABLE TO IDMS STANDARD Performed By: #### C BCA, CMP, 3040-3, 67600-4, 67153-6, 14017-3, 69238-1, PINR, 84132-9, 77084-0 #### [facility] ([id number]) [address] [place] [address] 50610 GFR/1.73 sq M.predicted among non-blacks MDRD (S/P/Bld) [Vol rate/Area] 90 mL/min/{1.73_m2} Normal >59 [facility] Comment on above: Result Comment: Reported eGFR is based on the CKD-EPI 2020 equation that does not use a race coefficient. Performed By: #### C BCA, CMP, 3040-3, 18091-5, 07800-9, 45481-8, 32579-9, PINR, 29635-9, 35990-8 #### [facility] ([id number]) [address] [place] [address] 62204 Glucose [Mass/Vol] 93 mg/dL Normal 65-99 [facility] Comment on above: Performed By: #### C BCA, CMP, 3040-3, 25573-3, 72733-1, 11572-8, 87000-0, PINR, 03084-1, 27330-9 #### [facility] ([id number]) [address] [place] [address] 51109 Potassium [Moles/Vol] 4.4 mmol/L Normal 3.5-5.0 [facility] Comment on above: Performed By: #### C BCA, CMP, 3040-3, 19697-3, 09903-6, 25689-3, 52581-1, PINR, 86714-3, 57360-0 #### [facility] ([id number]) [address] [place] [address] 12890 Protein [Mass/Vol] 6.4 g/dL Normal 6.0-8.0 [facility] Comment on above: Performed By: #### C BCA, CMP, 3040-3, 06151-6, 77089-3, 48208-8, 66106-5, PINR, 38456-7, 86627-5 #### [facility] ([id number]) [address] [place] [address] 57354 Sodium [Moles/Vol] 133 mmol/L Low 134-146 [facility] Comment on above: Performed By: #### C BCA, CMP, 3040-3, 02660-9, 02750-6, 83428-6, 95693-5, PINR, 35135-9, 90469-3 #### [facility] ([id number]) [address] [place] [address] 68406 Urea nitrogen [Mass/Vol] 18 mg/dL Normal 5-27 [facility] Comment on above: Performed By: #### C BCA, CMP, 3040-3, 21970-7, 35202-1, 84652-4, 02847-7, PINR, 00882-4, 72098-9 #### [facility] ([id number]) [address] [place] [address] 35591 MAGNESIUMon 05-12-2024 Magnesium [Mass/Vol] 1.9 mg/dL Normal 1.8-2.[address] [facility] Comment on above: Performed By: #### C BCA, CMP, 3040-3, 52338-3, 36197-5, 30933-1, 62384-3, PINR, 94195-9, 24541-9 #### [facility] ([id number]) [address] [place] [address] 95855 Procalcitonin IA [Mass/Vol]o n 05-11-2024 PROCALCITONIN 0.08 ng/mL High <0.05 [facility] Comment on above: Result Comment: NOTE <0.50 ng/mL - Low risk of severe sepsis and/or septic shock. <2.00 ng/mL - Recommend retesting within 6-24 hours. >2.00 ng/mL - High risk of sepsis and/or septic shock. Performed By: #### C BCA, CMP, 3040-3, 07850-7, 85145-3, 37561-9, 80006-6, PINR, 81361-3, 64867-8 #### [facility] ([id number]) [address] [place] [address] 79218 CBC AND AUTO DIFFon 05-10-20 24 ABSOLUTE BASOPHIL 0.1 X10E9/L Normal 0.0-0.2 [facility] Comment on above: Performed By: #### C BCA, CMP, 3040-3, 33227-8, 02655-2, 62295-0, 01176-9, PINR, 35809-6, 89614-4 #### [facility] ([id number]) [address] [place] [address] 09239 ABSOLUTE NEUTROPHIL 3.2 X10E9/L Normal 1.5-6.[address] [facility] Comment on above: Performed By: #### C BCA, CMP, 3040-3, 89188-3, 65771-3, 93007-3, 16235-9, PINR, 96084-5, 09439-1 #### [facility] ([id number]) [address] [place] [address] 35553 Basophils/100 WBC (Bld) 1.7 % Normal [facility] Comment on above: Performed By: #### C BCA, CMP, 3040-3, 78948-3, 13703-3, 55469-3, 93029-2, PINR, 66586-5, 36905-1 #### [facility] ([id number]) [address] [place] [address] 85664 Eosinophils (Bld) [#/Vol] 0.2 10*3/uL Normal 0.0-0.4 [facility] Comment on above: Performed By: #### C BCA, CMP, 3040-3, 92855-2, 52748-8, 93173-9, 85256-1, PINR, 70505-8, 69362-8 #### [facility] ([id number]) [address] [place] [address] 19420 Eosinophils/100 WBC (Bld) 3.5 % Normal [facility] Comment on above: Performed By: #### C BCA, CMP, 3040-3, 48440-7, 90688-2, 85034-3, 51769-0, PINR, 06221-7, 67454-0 #### [facility] ([id number]) [address] [place] [address] 89143 Erythrocyte distribution width (RBC) [Ratio] 16.7 % High 11.5-15.0 [facility] Comment on above: Performed By: #### C BCA, CMP, 3040-3, 88579-3, 97138-3, 75433-9, 90881-6, PINR, 26163-8, 24243-1 #### [facility] ([id number]) [address] [place] [address] 75092 Hematocrit (Bld) [Volume fraction] 37.5 % Normal 35-47 [facility] Comment on above: Performed By: #### C BCA, CMP, 3040-3, 32517-7, 27460-1, 95589-4, 51247-7, PINR, 57770-8, 06066-4 #### [facility] ([id number]) [address] [place] [address] 17869 Hemoglobin (Bld) [Mass/Vol] 12.0 g/dL Normal 11.7-15.5 [facility] Comment on above: Performed By: #### C BCA, CMP, 3040-3, 49946-9, 91742-4, 15330-1, 42653-1, PINR, 03105-0, 58284-4 #### [facility] ([id number]) [address] [place] [address] 39753 Lymphocytes (Bld) [#/Vol] 0.7 10*3/uL Low 1.0-3.5 [facility] Comment on above: Performed By: #### C BCA, CMP, 3040-3, 64558-4, 73563-7, 52638-3, 73254-8, PINR, 49465-8, 36827-3 #### [facility] ([id number]) [address] [place] [address] 57012 Lymphocytes/100 WBC (Bld) 15.7 % Normal [facility] Comment on above: Performed By: #### C BCA, CMP, 3040-3, 28070-2, 48174-3, 99025-0, 56358-3, PINR, 85515-3, 87961-8 #### [facility] ([id number]) [address] [place] [address] 92641 MCH (RBC) [Entitic mass] 23.9 pg Low 27-34 [facility] Comment on above: Performed By: #### C BCA, CMP, 3040-3, 69262-8, 09283-8, 48312-6, 58454-9, PINR, 91403-9, 19350-7 #### [facility] ([id number]) [address] [place] [address] 82496 MCHC (RBC) [Mass/Vol] 32.0 g/dL Normal 32-36 [facility] Comment on above: Performed By: #### C BCA, CMP, 3040-3, 30308-4, 22045-1, 22050-8, 62885-7, PINR, 93449-3, 66077-8 #### [facility] ([id number]) [address] [place] [address] 61503 MCV (RBC) [Entitic vol] 75 fL Low 80-100 [facility] Comment on above: Performed By: #### C BCA, CMP, 3040-3, 36245-8, 72009-0, 69947-2, 73534-8, PINR, 00917-7, 29003-6 #### [facility] ([id number]) [address] [place] [address] 47248 Monocytes (Bld) [#/Vol] 0.5 10*3/uL Normal 0-0.9 [facility] Comment on above: Performed By: #### C BCA, CMP, 3040-3, 77348-4, 60929-9, 15553-4, 22879-9, PINR, 25243-8, 60235-6 #### [facility] ([id number]) [address] [place] [address] 86912 Monocytes/100 WBC (Bld) 10.8 % Normal [facility] Comment on above: Performed By: #### C BCA, CMP, 3040-3, 13781-9, 95212-9, 36930-8, 86628-4, PINR, 61809-1, 00449-0 #### [facility] ([id number]) [address] [place] [address] 75527 Neutrophils/100 WBC (Bld) 68.3 % Normal [facility] Comment on above: Performed By: #### C BCA, CMP, 3040-3, 90719-0, 86905-3, 20519-1, 61671-5, PINR, 82964-7, 03455-2 #### [facility] ([id number]) [address] [place] [address] 99916 Platelet mean volume (Bld) [Entitic vol] 8.1 fL Normal 7-12 [facility] Comment on above: Performed By: #### C BCA, CMP, 3040-3, 17829-8, 77857-8, 57391-4, 25042-2, PINR, 80938-7, 48755-2 #### [facility] ([id number]) [address] [place] [address] 89423 Platelets (Bld) [#/Vol] 630 10*3/uL High 150-450 [facility] Comment on above: Performed By: #### C BCA, CMP, 3040-3, 06960-8, 22629-3, 07675-1, 65074-3, PINR, 61422-0, 28779-3 #### [facility] ([id number]) [address] [place] [address] 22940 RBC COUNT 5.02 X10E12/L Normal 3.80-5.20 [facility] Comment on above: Performed By: #### C BCA, CMP, 3040-3, 33497-1, 40299-2, 53537-1, 38270-2, PINR, 92986-9, 80786-0 #### [facility] ([id number]) [address] [place] [address] 77408 WBC (Bld) [#/Vol] 4.7 10*3/uL Normal 4.0-11.0 [facility] Comment on above: Performed By: #### C BCA, CMP, 3040-3, 97269-2, 56730-4, 63141-5, 68693-5, PINR, 81178-7, 06585-4 #### [facility] ([id number]) [address] [place] [address] 18607 COMPREHENSIVE METABOLIC PANE Nick 05-10-2024 Albumin [Mass/Vol] 3.6 g/dL Normal 3.2-5.3 [facility] Comment on above: Performed By: #### C BCA, CMP, 3040-3, 89984-2, 13160-1, 07159-6, 87715-5, PINR, 08477-3, 98534-6 #### [facility] ([id number]) [address] [place] [address] 40408 ALP [Catalytic activity/Vol] 105 U/L Normal 39-130 [facility] Comment on above: Performed By: #### C BCA, CMP, 3040-3, 92171-7, 42526-8, 58072-8, 83066-8, PINR, 73634-1, 11863-5 #### [facility] ([id number]) [address] [place] [address] 68266 ALT [Catalytic activity/Vol] 20 U/L Normal 0-31 [facility] Comment on above: Performed By: #### C BCA, CMP, 3040-3, 72768-2, 10945-2, 99723-0, 25386-2, PINR, 54718-3, 20039-5 #### [facility] ([id number]) [address] [place] [address] 65209 Anion gap [Moles/Vol] 6 mmol/L Normal 5-15 [facility] Comment on above: Performed By: #### C BCA, CMP, 3040-3, 93106-0, 07529-7, 83569-1, 01628-4, PINR, 10702-3, 67095-4 #### [facility] ([id number]) [address] [place] [address] 37477 AST [Catalytic activity/Vol] 25 U/L Normal 0-41 [facility] Comment on above: Performed By: #### C BCA, CMP, 3040-3, 22189-2, 45583-4, 32826-1, 28714-4, PINR, 90815-0, 22890-3 #### [facility] ([id number]) [address] [place] [address] 72023 Bilirubin [Mass/Vol] 0.6 mg/dL Normal 0.3-1.[address] [facility] Comment on above: Performed By: #### C BCA, CMP, 3040-3, 22848-7, 91089-6, 03226-4, 00776-6, PINR, 94131-1, 81223-1 #### [facility] ([id number]) [address] [place] [address] 33590 Calcium [Mass/Vol] 8.9 mg/dL Normal 8.5-10.5 [facility] Comment on above: Performed By: #### C BCA, CMP, 3040-3, 45785-4, 46369-8, 61769-5, 48451-7, PINR, 26747-0, 27316-8 #### [facility] ([id number]) [address] [place] [address] [place] [address] Chloride [Moles/Vol] 99 mmol/L Normal 98-[address] [facility] Comment on above: Performed By: #### C BCA, CMP, 3040-3, 92202-3, 21449-4, 90222-5, 51498-9, PINR, 59729-2, 62768-9 #### [facility] ([id number]) [address] [place] [address] [place] [address] CO2 [Moles/Vol] 27 mmol/L Normal 22-32 [facility] Comment on above: Performed By: #### C BCA, CMP, 3040-3, 39055-6, 31683-1, 43471-6, 81869-8, PINR, 96612-8, 33293-9 #### [facility] ([id number]) [address] [place] [address] 35439 Creatinine [Mass/Vol] 0.72 mg/dL Normal 0.40-1.00 [facility] Comment on above: Result Comment: METH OD TRACEABLE TO IDMS STANDARD Performed By: #### C BCA, CMP, 3040-3, 86209-0, 36565-1, 83298-0, 72894-4, PINR, 36377-1, 83505-7 #### [facility] ([id number]) [address] [place] [address] 37939 GFR/1.73 sq M.predicted among non-blacks MDRD (S/P/Bld) [Vol rate/Area] 82 mL/min/{1.73_m2} Normal >59 [facility] Comment on above: Result Comment: Reported eGFR is based on the CKD-EPI 2020 equation that does not use a race coefficient. Performed By: #### C BCA, CMP, 3040-3, 25066-8, 18221-7, 19770-9, 59609-8, PINR, 42947-8, 78632-6 #### [facility] ([id number]) [address] [place] [address] 99646 Glucose [Mass/Vol] 105 mg/dL High 65-99 [facility] Comment on above: Performed By: #### C BCA, CMP, 3040-3, 04143-9, 76421-4, 31185-4, 99513-3, PINR, 64367-6, 24484-8 #### [facility] ([id number]) [address] [place] [address] 85082 Potassium [Moles/Vol] 5.2 mmol/L High 3.5-5.0 [facility] Comment on above: Performed By: #### C BCA, CMP, 3040-3, 86598-1, 83647-8, 53841-6, 50124-6, PINR, 76671-5, 45801-6 #### [facility] ([id number]) [address] [place] [address] 63123 Protein [Mass/Vol] 7.0 g/dL Normal 6.0-8.0 [facility] Comment on above: Performed By: #### C BCA, CMP, 3040-3, 40709-4, 68627-5, 65087-1, 02055-3, PINR, 14538-0, 68553-2 #### [facility] ([id number]) [address] [place] [address] 68299 Sodium [Moles/Vol] 132 mmol/L Low 134-146 [facility] Comment on above: Performed By: #### C BCA, CMP, 3040-3, 68997-0, 59954-2, 51200-3, 04240-6, PINR, 36579-8, 28781-4 #### [facility] ([id number]) [address] [place] [address] 54099 Urea nitrogen [Mass/Vol] 24 mg/dL Normal 5-27 [facility] Comment on above: Performed By: #### C BCA, CMP, 3040-3, 96449-7, 19787-9, 54819-6, 71651-5, PINR, 55662-7, 66632-7 #### [facility] ([id number]) [address] [place] [address] ABDOMEN AND PELVIS W CONT on 05-10-2024 CT ABDOMEN AND PELVIS W CONT CT ABDOMEN AND PELVIS W CONT Contrast-enhanced CT of the abdomen, and pelvis dated 05/10/2024. Indication: Flank pain. Comparison: CT abdomen pelvis from 02/20/2022 and 04/27/2021 . Technique: Axial images of the abdomen and pelvis were obtained after the injection of intravenous nonionic iodinated contrast. 2-D reformats were obtained. All CT scans at this facility use dose modulation, iterative reconstruction, and/or weight based dosing when appropriate to reduce radiation dose to as low as reasonably achievable. Findings: Lingular consolidative opacities and possible subsegmental atelectatic change. Mild prominence of the intrahepatic biliary tree. The gallbladder is without calcified stones. Spleen, pancreas and adrenal glands are unremarkable. Kidneys enhance and symmetrically and are without hydronephrosis. Number appearing prominent right renal pelvis and calyces. 1.3 cm right upper pole dystrophic calcification. Renal hypodensities that are too small to characterize. Urinary bladder demonstrates mild wall thickening which may be in part due to the underdistended state. 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 No lymphadenopathy is noted in the abdomen or pelvis. Rectal wall thickening is noted with mild perirectal fat infiltration and a 6.2 cm stool ball. Moderate to advanced stool burden. The intestines are without obstruction. No free fluid or free air. Degenerative disc disease most pronounced at L3-4 the lumbosacral junction. Facet arthropathy lower lumbar spine. No acute osseous abnormality. Impression: 1. Rectal wall thickening and perirectal inflammatory change with a 6.2 cm stool ball likely on the basis of stercoral proctitis. 2. Lingular consolidative opacities and possible subsegmental atelectatic change. A developing infiltrate is difficult to exclude. 3. Mild urinary bladder wall prominence/thickening which may be in part due to the underdistended state however correlation with urinalysis recommended. Finalized by Sabrina Feliz MD on 05/10/2024 6:01 PM Normal [facility] Lactate (P niocencia) [Moles/Vol]o n 05-10-2024 LACTATE W/REFLEX 1.2 mmol/L Normal 0.4-2.0 [facility] Comment on above: Result Comment: Result did not trigger repeat Lactate, re-order if needed. Performed By: #### C BCA, CMP, 3040-3, 66816-6, 30622-4, 69584-5, 56649-9, PINR, 32600-6, 09816-1 #### [facility] ([id number]) [address] [place] [address] [place] [address] URINALYSISon 05-10-2024 Bilirubin Ql (U) Negative Normal NEG [facility] Comment on above: Performed By: #### C BCA, CMP, 3040-3, 14843-8, 13289-0, 50367-9, 35110-4, PINR, 25687-0, 51712-9 #### [facility] ([id number]) [address] [place] [address] BLOOD/HGB Negative Normal NEG [facility] Comment on above: Performed By: #### C BCA, CMP, 3040-3, 79627-5, 34359-5, 39059-3, 47262-0, PINR, 41933-4, 33761-9 #### [facility] ([id number]) [address] [place] [address] 91596 Color (U) YELLOW Normal YELLOW [facility] Comment on above: Performed By: #### C BCA, CMP, 3040-3, 89870-6, 74986-8, 87772-8, 10118-8, PINR, 18347-7, 71673-0 #### [facility] ([id number]) [address] [place] [address] Glucose Ql (U) Negative Normal NEG [facility] Comment on above: Performed By: #### C BCA, CMP, 3040-3, 33231-4, 32922-6, 43297-6, 10807-2, PINR, 78937-1, 34670-3 #### [facility] ([id number]) [address] [place] [address] 95213 Ketones Ql (U) Negative Normal NEG [facility] Comment on above: Performed By: #### C BCA, CMP, 3040-3, 54465-7, 60593-8, 03848-7, 91754-5, PINR, 52861-5, 27559-6 #### [facility] ([id number]) [address] [place] [address] [place] [address] Leukocyte esterase Test strip Ql (U) Trace Abnormal NEG [facility] Comment on above: Performed By: #### C BCA, CMP, 3040-3, 61169-5, 49501-1, 74840-1, 71155-3, PINR, 15452-1, 35167-9 #### [facility] ([id number]) [address] [place] [address] 25858 Nitrite Ql (U) Positive Abnormal NEG [facility] Comment on above: Performed By: #### C BCA, CMP, 3040-3, 69770-3, 62964-5, 20198-8, 08724-1, PINR, 66988-8, 73702-5 #### [facility] ([id number]) [address] [place] [address] 64750 pH (U) 6.0 [pH] Normal 5.0-8.5 [facility] Comment on above: Performed By: #### C BCA, CMP, 3040-3, 25306-2, 74323-3, 85364-9, 05853-8, PINR, 56674-9, 70448-7 #### [facility] ([id number]) [address] [place] [address]23 Protein Ql (U) Negative Normal NEG [facility] Comment on above: Performed By: #### C BCA, CMP, 3040-3, 95547-6, 19848-8, 73354-8, 30617-1, PINR, 22151-7, 54458-3 #### [facility] ([id number]) [address] [place] [address] 59639 R.B.CELLS 1 /hpf Normal 0-5 [facility] Comment on above: Performed By: #### C BCA, CMP, 3040-3, 92655-2, 56235-8, 23320-8, 53872-1, PINR, 23540-9, 69736-8 #### [facility] ([id number]) [address] [place] [address] 63129 Specific gravity (U) [Rel density] 1.020 Normal 1.003-1.035 [facility] Comment on above: Performed By: #### C BCA, CMP, 3040-3, 26660-1, 13518-8, 96667-6, 38199-1, PINR, 88693-8, 73284-0 #### [facility] ([id number]) [address] [place] [address] 43835 SQUAMOUS EPITHELIUM 1 /hpf Normal 0-5 [facility] Comment on above: Performed By: #### C BCA, CMP, 3040-3, 11970-9, 16439-2, 01987-1, 92620-4, PINR, 27713-0, 28605-8 #### [facility] ([id number]) [address] [place] [address] [place] [address] TURBIDITY CLEAR Normal CLEAR [facility] Comment on above: Performed By: #### C BCA, CMP, 3040-3, 23200-9, 04885-2, 17313-3, 21130-9, PINR, 59183-9, 30923-3 #### [facility] ([id number]) [address] [place] [address] 13696 Urobilinogen Qn (U) 0.2 {Osvaldo'U}/dL Normal <1.1 [facility] Comment on above: Performed By: #### C BCA, CMP, 3040-3, 95950-0, 68910-8, 85094-1, 92612-2, PINR, 31904-0, 06212-9 #### [facility] ([id number]) [address] [place] [address] [place] [address] W.B.CELLS 27 /hpf High 0-5 [facility] Comment on above: Performed By: #### C BCA, CMP, 3040-3, 18606-3, 07372-9, 97422-0, 35274-7, PINR, 98437-7, 67664-5 #### [facility] ([id number]) [address] [place] [address] 59149 WBC CLUMPS FEW Abnormal NONE [facility] Comment on above: Performed By: #### C BCA, CMP, 3040-3, 98179-0, 20593-2, 19139-7, 85219-0, PINR, 71549-5, 53030-4 #### [facility] ([id number]) [address] [place] [address] 06218 URINE CULTUREon 05-10-2024 Bacteria identified Cx Nom (U) CULTURE RESULTS >100,000 ORGANISMS/mL KLEBSIELLA ORNITHINOLYTICA [ S = SUSCEPTIBLE R = RESISTANT I = INTERMEDIATE S-DO = Susceptible-dose dependent NS = Non-suscceptible NO = No Interpretation ] Organism: KLEBSIELLA ORNITHINOLYTICA Antibiotic Interpretation AARON Status AMPICILLIN R 16 F AMP/SULBACTAM S 4/2 F CEFAZOLIN S <=4 F CEFTRIAXONE S <=1 F CIPROFLOXACIN S <=0.25 F GENTAMICIN S <=1 F LEVOFLOXACIN S <=0.12 F NITROFURANTOIN S <=16 F PIPERACIL/TAZOBACTAM S <=4 F TOBRAMYCIN S <=1 F TRIMETH/SULFAMETHOXAZOLE S <=1/19 F Susceptible [facility] Comment on above: Performed By: #### C BCA, CMP, 3040-3, 96137-6, 40245-2, 99391-2, 04725-3, PINR, 70366-4, 00948-4 #### [facility] ([id number]) [address] [place] [address] 26986 URN MACROSCOPIC NURon 2023 BILIRUBIN JUAN Negative Normal NEG [facility] Comment on above: Performed By: #### C BCA, CMP, 3040-3, 01264-2, 78337-0, 59799-2, 91431-1, PINR, 92970-9, 75083-8 #### [facility] ([id number]) [address] [place] [address] 93013 BLOOD/HGB JUAN Negative Normal NEG [facility] Comment on above: Performed By: #### C BCA, CMP, 3040-3, 42717-2, 06030-9, 20015-8, 36221-7, PINR, 74552-0, 90073-5 #### [facility] ([id number]) [address] [place] [address] 80367 GLUCOSE JUAN Negative Normal NEG [facility] Comment on above: Performed By: #### C BCA, CMP, 3040-3, 14473-9, 76887-9, 97013-7, 66208-9, PINR, 38640-9, 73120-7 #### [facility] ([id number]) [address] [place] [address] [place] [address] KETONES JUAN Negative Normal NEG [facility] Comment on above: Performed By: #### C BCA, CMP, 3040-3, 26852-6, 33569-0, 38473-7, 23485-5, PINR, 26220-1, 25450-0 #### [facility] ([id number]) [address] [place] [address] [place] [address] LEUKOCYTE ESTERASE JUAN Trace Abnormal NEG [facility] Comment on above: Performed By: #### C BCA, CMP, 3040-3, 33656-9, 05035-8, 70696-1, 90401-2, PINR, 05891-7, 21032-2 #### [facility] ([id number]) [address] [place] [address] [place] [address] NITRITE JUAN Positive Abnormal NEG [facility] Comment on above: Performed By: #### C BCA, CMP, 3040-3, 47447-3, 52143-6, 29999-7, 66424-2, PINR, 77496-4, 59506-3 #### [facility] ([id number]) [address] [place] [address] 25644 PH JUAN 6.0 Normal 5.0-8.5 [facility] Comment on above: Performed By: #### C BCA, CMP, 3040-3, 97073-7, 57496-2, 81924-9, 25208-7, PINR, 17914-4, 73884-7 #### [facility] ([id number]) [address] [place] [address] 58935 PROTEIN JUAN Negative Normal NEG [facility] Comment on above: Performed By: #### C BCA, CMP, 3040-3, 70966-8, 85215-6, 75992-8, 27179-5, PINR, 64307-7, 01445-3 #### [facility] ([id number]) [address] [place] [address] 69290 SPECIFIC GRAVITY JUAN 1.020 Normal 1.003-1.035 [facility] Comment on above: Performed By: #### C BCA, CMP, 3040-3, 44837-7, 23987-8, 61172-4, 86498-6, PINR, 07441-0, 94054-7 #### [facility] ([id number]) [address] [place] [address] 37818 UROBILINOGEN JUAN 0.2 eu/dL Normal <1.1 [facility] Comment on above: Performed By: #### C BCA, CMP, 3040-3, 90990-4, 22293-3, 74862-8, 44408-7, PINR, 52899-7, 12244-3 #### [facility] ([id number]) [address] [place] [address] 76830 URINALYSISon 04-10-2024 Bilirubin Ql (U) Negative Normal NEG [facility] Comment on above: Performed By: #### C BCA, CMP, 3040-3, 99184-2, 81977-7, 73141-3, 95129-4, PINR, 34429-0, 37167-5 #### [facility] ([id number]) [address] [place] [address] 96519 BLOOD/HGB Negative Normal NEG [facility] Comment on above: Performed By: #### C BCA, CMP, 3040-3, 77729-0, 21804-8, 55291-7, 08800-8, PINR, 09461-5, 37170-6 #### [facility] ([id number]) [address] [place] [address] [place] [address] Color (U) YELLOW Normal YELLOW [facility] Comment on above: Performed By: #### C BCA, CMP, 3040-3, 89586-9, 72939-5, 46568-0, 12150-0, PINR, 33879-6, 67987-2 #### [facility] ([id number]) [address] [place] [address] 41608 Glucose Ql (U) Negative Normal NEG [facility] Comment on above: Performed By: #### C BCA, CMP, 3040-3, 38515-0, 30754-9, 72223-0, 57042-9, PINR, 51432-4, 87630-9 #### [facility] ([id number]) [address] [place] [address] [place] [address] Ketones Ql (U) Negative Normal NEG [facility] Comment on above: Performed By: #### C BCA, CMP, 3040-3, 01358-8, 34300-0, 33615-9, 42145-2, PINR, 96349-7, 46385-4 #### [facility] ([id number]) [address] [place] [address] Leukocyte esterase Test strip Ql (U) Trace Abnormal NEG [facility] Comment on above: Performed By: #### C BCA, CMP, 3040-3, 13368-6, 19911-2, 78434-9, 43434-1, PINR, 96781-1, 25162-5 #### [facility] ([id number]) [address] [place] [address] 96015 Nitrite Ql (U) Negative Normal NEG [facility] Comment on above: Performed By: #### C BCA, CMP, 3040-3, 11562-2, 13556-7, 09243-0, 16473-0, PINR, 56073-9, 54607-3 #### [facility] ([id number]) [address] [place] [address] 35081 pH (U) 5.5 [pH] Normal 5.0-8.5 [facility] Comment on above: Performed By: #### C BCA, CMP, 3040-3, 12050-7, 14282-2, 40852-5, 30401-2, PINR, 30637-4, 13545-1 #### [facility] ([id number]) [address] [place] [address] 70074 Protein Ql (U) Negative Normal NEG [facility] Comment on above: Performed By: #### C BCA, CMP, 3040-3, 87729-6, 06957-8, 22140-9, 47575-4, PINR, 24169-7, 92323-5 #### [facility] ([id number]) [address] [place] [address] 18066 R.B.CELLS <1 Normal 0-5 [facility] Comment on above: Performed By: #### C BCA, CMP, 3040-3, 92717-9, 43241-0, 14373-8, 75015-7, PINR, 87140-7, 06331-1 #### [facility] ([id number]) [address] [place] [address] 52213 Specific gravity (U) [Rel density] 1.008 Normal 1.003-1.035 [facility] Comment on above: Performed By: #### C BCA, CMP, 3040-3, 70123-3, 15973-3, 87795-6, 44606-6, PINR, 80204-2, 04371-0 #### [facility] ([id number]) [address] [place] [address] 02418 SQUAMOUS EPITHELIUM <1 Normal 0-5 [facility] Comment on above: Performed By: #### C BCA, CMP, 3040-3, 66816-4, 63914-2, 16812-7, 49698-0, PINR, 30028-5, 48000-8 #### [facility] ([id number]) [address] [place] [address] 10699 TURBIDITY CLEAR Normal CLEAR [facility] Comment on above: Performed By: #### C BCA, CMP, 3040-3, 85328-7, 00694-9, 88689-8, 31052-3, PINR, 47232-7, 29847-2 #### [facility] ([id number]) [address] [place] [address] [place] [address] Urinalysis dipstick W Reflex Microscopic panel (U) URINE RECEIVED WITHOUT PRESERVATIVE-DELAYS IN TRANSPORT MAY AFFECT RESULTS.INTERPRET WITH CAUTION AND CLINICAL CORRELATION IS RECOMMENDED. Normal [facility] Comment on above: Performed By: #### C BCA, CMP, 3040-3, 54911-3, 99161-8, 19118-7, 03887-3, PINR, 82087-3, 42776-4 #### [facility] ([id number]) [address] [place] [address] 37617 Urobilinogen (U) [Mass/Vol] mg/dL Normal <1.1 [facility] Comment on above: Performed By: #### C BCA, CMP, 3040-3, 81838-4, 79223-1, 47854-6, 26874-0, PINR, 58924-0, 92651-8 #### [facility] ([id number]) [address] [place] [address], [place] [address] W.B.CELLS 2 /hpf Normal 0-5 [facility] Comment on above: Performed By: #### C BCA, CMP, 3040-3, 26294-2, 95626-4, 58872-2, 17997-0, PINR, 55828-8, 70321-6 #### [facility] ([id number]) [address] [place] [address] [place] [address] URINE CULTUREon 04-10-2024 Bacteria identified Cx Nom (U) SPECIMEN NOTES URINE RECEIVED WITHOUT PRESERVATIVE CULTURE RESULTS 50-100,000 ORGANISMS/ML NORMAL UROGENITAL ALEX Normal [facility] Comment on above: Performed By: #### C BCA, CMP, 3040-3, 89921-7, 94414-5, 27513-7, 69021-8, PINR, 34281-5, 57881-6 #### [facility] ([id number]) [address] [place] [address], [place] [address] URINALYSISon 03-24-2024 Bilirubin Ql (U) Negative Normal NEG [facility] Comment on above: Performed By: #### C BCA, CMP, 3040-3, 68593-6, 91298-6, 19808-2, 60826-2, PINR, 42843-3, 01589-2 #### [facility] ([id number]) [address] [place] [address], [place] [address] BLOOD/HGB Negative Normal NEG [facility] Comment on above: Performed By: #### C BCA, CMP, 3040-3, 93122-7, 44982-5, 46550-3, 52287-0, PINR, 76914-7, 09677-2 #### [facility] ([id number]) [address] [place] [address] [place] [address] Color (U) YELLOW Normal YELLOW [facility] Comment on above: Performed By: #### C BCA, CMP, 3040-3, 87586-8, 61959-5, 26209-9, 43871-8, PINR, 41477-0, 00880-8 #### [facility] ([id number]) [address] [place] [address] 41187 Glucose Ql (U) Negative Normal NEG [facility] Comment on above: Performed By: #### C BCA, CMP, 3040-3, 31518-5, 33154-4, 18797-3, 44106-4, PINR, 20021-2, 32041-9 #### [facility] ([id number]) [address] [place] [address] [place] [address] Ketones Ql (U) Negative Normal NEG [facility] Comment on above: Performed By: #### C BCA, CMP, 3040-3, 89950-3, 40312-4, 08024-2, 17651-2, PINR, 29727-6, 01779-8 #### [facility] ([id number]) [address] [place] [address], [place] [address] Leukocyte esterase Test strip Ql (U) Trace Abnormal NEG [facility] Comment on above: Performed By: #### C BCA, CMP, 3040-3, 20099-2, 57095-1, 16433-5, 20984-8, PINR, 10850-2, 19862-4 #### [facility] ([id number]) [address] [place] [address] [place] [address] Nitrite Ql (U) Negative Normal NEG [facility] Comment on above: Performed By: #### C BCA, CMP, 3040-3, 77586-8, 72196-1, 90673-1, 20308-5, PINR, 47909-5, 46591-0 #### [facility] ([id number]) [address] [place] [address] 70868 pH (U) 6.0 [pH] Normal 5.0-8.5 [facility] Comment on above: Performed By: #### C BCA, CMP, 3040-3, 26227-1, 74108-6, 59149-5, 03368-9, PINR, 13747-0, 06142-3 #### [facility] ([id number]) [address] [place] [address] 06650 Protein Ql (U) Negative Normal NEG [facility] Comment on above: Performed By: #### C BCA, CMP, 3040-3, 70817-1, 57190-9, 89919-3, 67074-8, PINR, 52322-4, 81498-0 #### [facility] ([id number]) [address] [place] [address] 40321 R.B.CELLS 0 /hpf Normal 0-5 [facility] Comment on above: Performed By: #### C BCA, CMP, 3040-3, 37690-9, 00180-9, 80667-8, 27952-5, PINR, 88273-7, 90439-4 #### [facility] ([id number]) [address] [place] [address] 93915 Specific gravity (U) [Rel density] 1.010 Normal 1.003-1.035 [facility] Comment on above: Performed By: #### C BCA, CMP, 3040-3, 20772-6, 33250-8, 99399-8, 06516-6, PINR, 00760-9, 21329-8 #### [facility] ([id number]) [address] [place] [address] 02858 TURBIDITY CLEAR Normal CLEAR [facility] Comment on above: Performed By: #### C BCA, CMP, 3040-3, 50117-4, 96549-8, 25810-9, 08723-2, PINR, 31047-3, 75357-4 #### [facility] ([id number]) [address] [place] [address] 81461 Urobilinogen Qn (U) 0.2 {Osvaldo'U}/dL Normal <1.1 [facility] Comment on above: Performed By: #### C BCA, CMP, 3040-3, 61836-6, 23856-9, 90363-3, 65344-7, PINR, 48451-1, 17762-7 #### [facility] ([id number]) [address] [place] [address] 29592 W.B.CELLS 2 /hpf Normal 0-5 [facility] Comment on above: Performed By: #### C BCA, CMP, 3040-3, 76329-1, 55466-3, 45047-8, 51761-8, PINR, 68490-7, 12644-0 #### [facility] ([id number]) [address] [place] [address] 37392 URINE CULTUREon 03-24-2024 Bacteria identified Cx Nom (U) SPECIMEN NOTES URINE RECEIVED WITHOUT PRESERVATIVE CULTURE RESULTS >100,000 ORGANISMS/mL ENTEROCOCCUS SPECIES Ampicillin or Amoxicillin is the drug of choice for uncomplicated cystitis caused by enterococci. Cephalosporins are inappropriate. 10,000 to 50,000 ORGANISMS/mL NORMAL URO GENITAL ALEX URINE RECEIVED WITHOUT PRESERVATIVE-DELAYS IN TRANSPORT MAY AFFECT RESULTS.INTERPRET WITH CAUTION AND CLINICAL CORRELATION IS RECOMMENDED. [ S = SUSCEPTIBLE R = RESISTANT I = INTERMEDIATE S-DO = Susceptible-dose dependent NS = Non-suscceptible NO = No Interpretation ] Organism: ENTEROCOCCUS SPECIES Antibiotic Interpretation AARON Status AMPICILLIN S <=2 F LEVOFLOXACIN R >=8 F NITROFURANTOIN S <=16 F VANCOMYCIN S 1 F Susceptible [facility] Comment on above: Performed By: #### C BCA, CMP, 3040-3, 35772-0, 67464-3, 96049-4, 79387-0, PINR, 43034-3, 56580-8 #### [facility] ([id number]) [address] [place] [address], [place] [address] US UNI ankle/arm indiceson 0 02-18-2024 US UNI ankle/arm indices [facility] [address] [place] [address] Ultrasound Report Signed Patient: Garett Nieto I MR#: [id number] : 1940 Acct:[id number] Age/Sex: 83 / F ADM Date: 02/18/24 Loc: [facility] Room: Type: [facility] Attending Dr: Henry Benton MD Ordering Provider: Henry Benton MD Date of Service: 02/18/24 US/US UNI ankle/arm indices: I70.211 Copies to: Henry Benton MD Left ankle-brachial indices Indication for study: Peripheral vascular occlusive disease status post left leg endovascular reconstruction PROCEDURE: Right arm blood pressure is 143 in the left arm blood pressure is 139 mmHg. At the left ankle the posterior tibial pressure is 103 with an ankle-brachial index of 0.72. The dorsalis pedis pressure is 108 mmHg with an ankle-brachial index of 0.76. Waveforms are pulsatile with mild blunting. US/US UNI ankle/arm indices IMPRESSION: Mild peripheral vascular occlusive disease of the left lower extremity at rest. Impression dictated by: Henry Benton M.D.02/18/2024 11:53 AM Dictation Location: [place] [address] Tech: Citlaly Pham Transcribed By: TOREY 02/18/24 1153 Dictated By: Henry Benton MD 02/18/24 1151 Signed By: 02/18/24 1153 Normal [facility] URINALYSISon 02-17-2024 Bilirubin Ql (U) Negative Normal NEG [facility] Comment on above: Performed By: #### C BCA, CMP, 3040-3, 56910-6, 17709-9, 60958-8, 04184-4, PINR, 94087-5, 96345-4 #### [facility] ([id number]) [address] [place] [address] BLOOD/HGB Negative Normal NEG [facility] Comment on above: Performed By: #### C BCA, CMP, 3040-3, 17636-1, 61374-6, 86897-6, 22559-5, PINR, 84764-6, 99291-2 #### [facility] ([id number]) [address] [place] [address] Color (U) YELLOW Normal YELLOW [facility] Comment on above: Performed By: #### C BCA, CMP, 3040-3, 14317-1, 06987-7, 03105-0, 69924-7, PINR, 64907-5, 69050-0 #### [facility] ([id number]) [address] [place] [address] [place] [address] Glucose Ql (U) Negative Normal NEG [facility] Comment on above: Performed By: #### C BCA, CMP, 3040-3, 98077-7, 67903-7, 47189-0, 10648-6, PINR, 14233-3, 67653-9 #### [facility] ([id number]) [address] [place] [address] [place] [address] Ketones Ql (U) Negative Normal NEG [facility] Comment on above: Performed By: #### C BCA, CMP, 3040-3, 02272-0, 85300-4, 81709-6, 87111-6, PINR, 90989-4, 83021-2 #### [facility] ([id number]) [address] [place] [address] [place] [address] Leukocyte esterase Test strip Ql (U) Trace Abnormal NEG [facility] Comment on above: Performed By: #### C BCA, CMP, 3040-3, 68727-1, 48269-7, 15695-7, 54340-8, PINR, 06676-4, 61674-3 #### [facility] ([id number]) [address] [place] [address] Nitrite Ql (U) Negative Normal NEG [facility] Comment on above: Performed By: #### C BCA, CMP, 3040-3, 29078-3, 36573-5, 96713-7, 15916-0, PINR, 47588-0, 88703-4 #### [facility] ([id number]) [address] [place] [address] pH (U) 6.0 [pH] Normal 5.0-8.5 [facility] Comment on above: Performed By: #### C BCA, CMP, 3040-3, 55083-4, 25969-3, 88656-2, 66780-5, PINR, 32679-7, 38438-0 #### [facility] ([id number]) [address] [place] [address] Protein Ql (U) Negative Normal NEG [facility] Comment on above: Performed By: #### C BCA, CMP, 3040-3, 09601-2, 91856-9, 48378-9, 91936-9, PINR, 05090-1, 31813-1 #### [facility] ([id number]) [address] [place] [address] 76756 R.B.CELLS 0 /hpf Normal 0-5 [facility] Comment on above: Performed By: #### C BCA, CMP, 3040-3, 44176-6, 88067-1, 52487-2, 12762-9, PINR, 20760-5, 94947-1 #### [facility] ([id number]) [address] [place] [address] 71709 Specific gravity (U) [Rel density] 1.010 Normal 1.003-1.035 [facility] Comment on above: Performed By: #### C BCA, CMP, 3040-3, 16725-8, 52879-1, 42057-7, 30023-1, PINR, 01657-6, 34738-4 #### [facility] ([id number]) [address] [place] [address] 77564 TURBIDITY CLEAR Normal CLEAR [facility] Comment on above: Performed By: #### C BCA, CMP, 3040-3, 65795-2, 22504-0, 06470-0, 51582-5, PINR, 06718-6, 30247-6 #### [facility] ([id number]) [address] [place] [address] 65994 Urobilinogen Qn (U) 0.2 {Osvaldo'U}/dL Normal <1.1 [facility] Comment on above: Performed By: #### C BCA, CMP, 3040-3, 83379-6, 76791-8, 68880-3, 09205-0, PINR, 17132-2, 05097-2 #### [facility] ([id number]) [address] [place] [address] 27965 W.B.CELLS 0 /hpf Normal 0-5 [facility] Comment on above: Performed By: #### C BCA, CMP, 3040-3, 93478-4, 68466-9, 30860-2, 70472-2, PINR, 63869-7, 99664-1 #### [facility] ([id number]) [address] [place] [address] 84666 URINE CULTUREon 02-17-2024 Bacteria identified Cx Nom (U) CULTURE RESULTS >100,000 ORGANISMS/mL ENTEROCOCCUS SPECIES Ampicillin or Amoxicillin is the drug of choice for uncomplicated cystitis caused by enterococci. Cephalosporins are inappropriate. <10,000 ORGANISMS/mL NORMAL URO GENITAL ALEX [ S = SUSCEPTIBLE R = RESISTANT I = INTERMEDIATE S-DO = Susceptible-dose dependent NS = Non-suscceptible NO = No Interpretation ] Organism: ENTEROCOCCUS SPECIES Antibiotic Interpretation AARON Status AMPICILLIN S <=2 F LEVOFLOXACIN R >=8 F NITROFURANTOIN S <=16 F VANCOMYCIN S 1 F Susceptible [facility] Comment on above: Performed By: #### C BCA, CMP, 3040-3, 52360-7, 53190-8, 54821-5, 66334-3, PINR, 98435-9, 49962-6 #### [facility] ([id number]) [address] [place] [address] 43687 URINALYSISon 01-23-2024 Bilirubin Ql (U) Negative Normal NEG [facility] Comment on above: Performed By: #### C BCA, CMP, 3040-3, 25461-8, 13494-3, 05913-6, 13440-6, PINR, 90800-1, 40805-2 #### [facility] ([id number]) [address] [place] [address] [place] [address] BLOOD/HGB Negative Normal NEG [facility] Comment on above: Performed By: #### C BCA, CMP, 3040-3, 66139-6, 63717-0, 95885-3, 78981-9, PINR, 04316-0, 75819-8 #### [facility] ([id number]) [address] [place] [address] [place] [address] Color (U) YELLOW Normal YELLOW [facility] Comment on above: Performed By: #### C BCA, CMP, 3040-3, 53812-9, 93063-1, 65265-5, 31294-1, PINR, 37816-6, 41698-1 #### [facility] ([id number]) [address] [place] [address], [place] [address] Glucose Ql (U) Negative Normal NEG [facility] Comment on above: Performed By: #### C BCA, CMP, 3040-3, 69445-6, 79424-0, 90102-0, 91790-6, PINR, 10944-0, 92064-1 #### [facility] ([id number]) [address] [place] [address] [place] [address] Ketones Ql (U) Negative Normal NEG [facility] Comment on above: Performed By: #### C BCA, CMP, 3040-3, 18408-8, 43812-1, 96231-5, 17452-0, PINR, 95719-3, 05887-4 #### [facility] ([id number]) [address] [place] [address] 93814 Leukocyte esterase Test strip Ql (U) Negative Normal NEG [facility] Comment on above: Performed By: #### C BCA, CMP, 3040-3, 73202-0, 39428-0, 83372-1, 79977-9, PINR, 04354-2, 20596-0 #### [facility] ([id number]) [address] [place] [address] 10818 Nitrite Ql (U) Negative Normal NEG [facility] Comment on above: Performed By: #### C BCA, CMP, 3040-3, 41204-2, 05747-3, 53088-2, 05222-9, PINR, 94853-3, 49836-2 #### [facility] ([id number]) [address] [place] [address] 16885 pH (U) 6.0 [pH] Normal 5.0-8.5 [facility] Comment on above: Performed By: #### C BCA, CMP, 3040-3, 93883-7, 28448-3, 39487-2, 94719-4, PINR, 07547-4, 81288-0 #### [facility] ([id number]) [address] [place] [address] 86428 Protein Ql (U) Negative Normal NEG [facility] Comment on above: Performed By: #### C BCA, CMP, 3040-3, 55363-4, 07717-1, 80542-6, 89631-3, PINR, 89636-7, 64842-3 #### [facility] ([id number]) [address] [place] [address] 05766 Specific gravity (U) [Rel density] 1.015 Normal 1.003-1.035 [facility] Comment on above: Performed By: #### C BCA, CMP, 3040-3, 86463-8, 90141-9, 38426-6, 61316-5, PINR, 74619-4, 21222-3 #### [facility] ([id number]) [address] [place] [address] 58819 TURBIDITY CLEAR Normal CLEAR [facility] Comment on above: Performed By: #### C BCA, CMP, 3040-3, 96236-1, 47526-3, 32612-1, 11970-5, PINR, 01099-6, 41408-8 #### [facility] ([id number]) [address] [place] [address] 55587 Urobilinogen Qn (U) 0.2 {Osvaldo'U}/dL Normal <1.1 [facility] Comment on above: Performed By: #### C BCA, CMP, 3040-3, 25582-5, 36692-7, 31051-6, 81916-4, PINR, 10160-1, 36303-2 #### [facility] ([id number]) [address] [place] [address] 89302 URINE CULTUREon 01-23-2024 Bacteria identified Cx Nom (U) SPECIMEN NOTES URINE RECEIVED WITHOUT PRESERVATIVE CULTURE RESULTS >100,000 ORGANISMS/mL ENTEROCOCCUS SPECIES Ampicillin or Amoxicillin is the drug of choice for uncomplicated cystitis caused by enterococci. Cephalosporins are inappropriate. 50,000 to 100,000 ORGANISMS/mL ENTEROCOCCUS SPECIES Ampicillin or Amoxicillin is the drug of choice for uncomplicated cystitis caused by enterococci. Cephalosporins are inappropriate. VARIANT WITH SAME SUSCEPTIBILITY <10,000 ORGANISMS/mL NORMAL URO GENITAL ALEX URINE RECEIVED WITHOUT PRESERVATIVE-DELAYS IN TRANSPORT MAY AFFECT RESULTS.INTERPRET WITH CAUTION AND CLINICAL CORRELATION IS RECOMMENDED. [ S = SUSCEPTIBLE R = RESISTANT I = INTERMEDIATE S-DO = Susceptible-dose dependent NS = Non-suscceptible NO = No Interpretation ] Organism: ENTEROCOCCUS SPECIES Antibiotic Interpretation AARON Status AMPICILLIN S <=2 F LEVOFLOXACIN R >=8 F NITROFURANTOIN S <=16 F VANCOMYCIN S 1 F [ S = SUSCEPTIBLE R = RESISTANT I = INTERMEDIATE S-DO = Susceptible-dose dependent NS = Non-suscceptible NO = No Interpretation ] Organism: ENTEROCOCCUS SPECIES Antibiotic Interpretation AARON Status AMPICILLIN S <=2 F LEVOFLOXACIN R >=8 F NITROFURANTOIN S <=16 F VANCOMYCIN S 1 F Susceptible [facility] Comment on above: Performed By: #### C BCA, CMP, 3040-3, 89262-9, 84853-6, 57896-8, 23470-2, PINR, 86297-4, 36335-3 #### [facility] ([id number]) [address] [place] [address], [place] [address] US UNI ankle/arm indiceson 0 11-19-2023 US UNI ankle/arm indices [facility] [place] [address] [place] [address] 27097 Ultrasound Report Signed Patient: Garett Nieto I MR#: [id number] : 1940 Acct:[id number] Age/Sex: 83 / F ADM Date: 11/19/23 Loc: [facility] Room: Type: [facility] Attending Dr: Henry Benton MD Ordering Provider: Henry Benton MD Date of Service: 11/19/23 US/US UNI ankle/arm indices: I70.212 Copies to: Henry Benton MD Left leg ankle-brachial indices Indication for study: Peripheral vascular occlusive disease status post left leg reconstruction PROCEDURE: The right arm blood pressure is 131 the left arm blood pressure is 138 mmHg. At the left ankle the posterior tibial pressure is 115 and the dorsalis pedis pressure is 112. This gives ankle-brachial index of 0.8. Waveforms by plethysmography show moderate blunting. US/US UNI ankle/arm indices IMPRESSION: Mild peripheral vascular occlusive disease of the left lower extremity at rest Impression dictated by: Henry Benton M.D.11/19/2023 1:07 PM Dictation Location: [place] [address] Tech: Citlaly Pham Transcribed By: TOREY 11/19/23 1307 Dictated By: Henry Benton MD 11/19/23 1307 Signed By: 11/19/23 1307 Normal [facility] XR CHEST 1 VWon 11-07-2023 XR CHEST 1 VW XR CHEST 1 VW History: cough with eating Exam/Technique: AP view of the chest. XR CHEST 1 VW Comparison: 11/03/2023 Findings: Heart and mediastinum are grossly stable. Prominence of interstitial markings within the lung bases more conspicuous than prior exams. Likely some degree of congestion. Small effusions suspected. No dense or focal consolidation. IMPRESSION: * Prominence of basilar interstitial markings bilaterally may indicate developing or low-grade congestion. Correlate clinically. Finalized by Angelo Benz DO on 11/07/2023 8:31 AM Normal [facility] CBC AND AUTO DIFFon 11-06-20 23 Band form neutrophils/100 WBC (Bld) 4.9 % Normal [facility] Comment on above: Performed By: #### C BCA, CMP, 3040-3, 60303-1, 92670-4, 87453-6, 41356-8, PINR, 99340-3, 41627-0 #### [facility] ([id number]) [address] [place] [address] 95970 YAMILETH 1+ Abnormal NONE [facility] Comment on above: Performed By: #### C BCA, CMP, 3040-3, 73287-6, 27820-7, 51583-0, 83891-9, PINR, 36801-2, 81259-6 #### [facility] ([id number]) [address] [place] [address] 10835 Erythrocyte distribution width (RBC) [Ratio] 19.2 % High 11.5-15.0 [facility] Comment on above: Performed By: #### C BCA, CMP, 3040-3, 11642-8, 90438-0, 71342-5, 43482-6, PINR, 90903-0, 85236-4 #### [facility] ([id number]) [address] [place] [address] 90490 Hematocrit (Bld) [Volume fraction] 40.7 % Normal 35-47 [facility] Comment on above: Performed By: #### C BCA, CMP, 3040-3, 79691-5, 02170-7, 71828-2, 12811-5, PINR, 03281-7, 78784-7 #### [facility] ([id number]) [address] [place] [address] 50962 Hemoglobin (Bld) [Mass/Vol] 13.0 g/dL Normal 11.7-15.5 [facility] Comment on above: Performed By: #### C BCA, CMP, 3040-3, 71560-3, 12740-7, 07908-2, 01219-3, PINR, 60088-3, 51858-0 #### [facility] ([id number]) [address] [place] [address] 86973 Lymphocytes (Bld) [#/Vol] 0.7 10*3/uL Low 1.0-3.5 [facility] Comment on above: Performed By: #### C BCA, CMP, 3040-3, 70989-9, 31567-7, 00277-7, 42025-6, PINR, 28120-1, 77767-5 #### [facility] ([id number]) [address] [place] [address] 20661 Lymphocytes/100 WBC (Bld) 11.8 % Normal [facility] Comment on above: Performed By: #### C BCA, CMP, 3040-3, 83125-8, 65348-2, 24192-0, 66224-7, PINR, 50852-6, 10430-3 #### [facility] ([id number]) [address] [place] [address] 37193 MCH (RBC) [Entitic mass] 24.0 pg Low 27-34 [facility] Comment on above: Performed By: #### C BCA, CMP, 3040-3, 72397-2, 30445-3, 41288-2, 79554-8, PINR, 30810-1, 12717-0 #### [facility] ([id number]) [address] [place] [address] 62760 MCHC (RBC) [Mass/Vol] 31.8 g/dL Low 32-36 [facility] Comment on above: Performed By: #### C BCA, CMP, 3040-3, 48720-8, 44069-3, 33467-9, 30366-1, PINR, 82074-0, 45421-3 #### [facility] ([id number]) [address] [place] [address] 97557 MCV (RBC) [Entitic vol] 75 fL Low 80-100 [facility] Comment on above: Performed By: #### C BCA, CMP, 3040-3, 24482-5, 93258-3, 75030-3, 01384-8, PINR, 59536-3, 09085-9 #### [facility] ([id number]) [address] [place] [address] 58995 Monocytes (Bld) [#/Vol] 0.6 10*3/uL Normal 0-0.9 [facility] Comment on above: Performed By: #### C BCA, CMP, 3040-3, 07374-5, 53784-4, 01658-3, 45319-0, PINR, 34366-2, 76067-8 #### [facility] ([id number]) [address] [place] [address] 17261 Monocytes/100 WBC (Bld) 10.8 % Normal [facility] Comment on above: Performed By: #### C BCA, CMP, 3040-3, 99789-5, 71497-7, 90177-9, 37663-5, PINR, 86270-5, 22857-7 #### [facility] ([id number]) [address] [place] [address] 24380 Neutrophils (Bld) [#/Vol] 4.4 10*3/uL Normal 1.5-6.6 [facility] Comment on above: Performed By: #### C BCA, CMP, 3040-3, 30080-3, 36832-8, 58254-0, 12902-4, PINR, 60757-7, 28884-8 #### [facility] ([id number]) [address] [place] [address] 21020 OVALOCYTE 1+ Abnormal NONE [facility] Comment on above: Performed By: #### C BCA, CMP, 3040-3, 97061-2, 97168-9, 64085-5, 93934-6, PINR, 72474-5, 43550-0 #### [facility] ([id number]) [address] [place] [address] 74248 Platelet mean volume (Bld) [Entitic vol] 8.2 fL Normal 7-12 [facility] Comment on above: Performed By: #### C BCA, CMP, 3040-3, 34567-4, 38038-7, 62744-7, 30725-8, PINR, 43476-8, 28393-8 #### [facility] ([id number]) [address] [place] [address] 48190 Platelets (Bld) [#/Vol] 483 10*3/uL High 150-450 [facility] Comment on above: Performed By: #### C BCA, CMP, 3040-3, 23312-7, 86461-9, 87832-2, 10841-2, PINR, 66002-8, 84222-3 #### [facility] ([id number]) [address] [place] [address] 58611 POLYCHROMASIA 1+ Abnormal NONE [facility] Comment on above: Performed By: #### C BCA, CMP, 3040-3, 94268-4, 27976-8, 68560-9, 95029-5, PINR, 77013-8, 98142-9 #### [facility] ([id number]) [address] [place] [address] 85993 RBC COUNT 5.40 X10E12/L High 3.80-5.20 [facility] Comment on above: Performed By: #### C BCA, CMP, 3040-3, 71516-2, 66534-8, 28325-5, 78872-8, PINR, 12206-3, 52424-3 #### [facility] ([id number]) [address] [place] [address] 22261 SEG NEUTROPHIL 72.5 % Normal [facility] Comment on above: Performed By: #### C BCA, CMP, 3040-3, 31916-1, 86056-8, 14039-2, 53880-6, PINR, 20543-3, 80576-0 #### [facility] ([id number]) [address] [place] [address] 61351 WBC (Bld) [#/Vol] 5.6 10*3/uL Normal 4.0-11.0 [facility] Comment on above: Performed By: #### C BCA, CMP, 3040-3, 33704-2, 65848-1, 92602-4, 93962-6, PINR, 89089-9, 41582-6 #### [facility] ([id number]) [address] [place] [address] 77396 COMPREHENSIVE METABOLIC PANE Nick 11-06-2023 Albumin [Mass/Vol] 2.9 g/dL Low 3.2-5.3 [facility] Comment on above: Performed By: #### C BCA, CMP, 3040-3, 89718-0, 06811-1, 61023-2, 42451-6, PINR, 19559-7, 01195-4 #### [facility] ([id number]) [address] [place] [address] 66941 ALP [Catalytic activity/Vol] 72 U/L Normal 39-130 [facility] Comment on above: Performed By: #### C BCA, CMP, 3040-3, 76318-2, 62995-2, 98014-8, 78534-3, PINR, 05209-6, 41434-6 #### [facility] ([id number]) [address] [place] [address] 15848 ALT [Catalytic activity/Vol] 21 U/L Normal 0-31 [facility] Comment on above: Performed By: #### C BCA, CMP, 3040-3, 66929-2, 09371-3, 15196-6, 76806-3, PINR, 21427-9, 06407-8 #### [facility] ([id number]) [address] [place] [address] 55607 Anion gap [Moles/Vol] 7 mmol/L Normal 5-15 [facility] Comment on above: Performed By: #### C BCA, CMP, 3040-3, 92001-2, 53840-1, 49376-9, 60665-7, PINR, 20869-1, 49787-9 #### [facility] ([id number]) [address] [place] [address] 12356 AST [Catalytic activity/Vol] 37 U/L Normal 0-41 [facility] Comment on above: Performed By: #### C BCA, CMP, 3040-3, 73535-5, 73200-0, 49553-7, 10313-4, PINR, 40045-8, 60919-3 #### [facility] ([id number]) [address] [place] [address] 09918 Bilirubin [Mass/Vol] 0.5 mg/dL Normal 0.3-1.[address] [facility] Comment on above: Performed By: #### C BCA, CMP, 3040-3, 08047-5, 98652-4, 02901-5, 76375-5, PINR, 24534-5, 74760-2 #### [facility] ([id number]) [address] [place] [address] 89956 Calcium [Mass/Vol] 8.8 mg/dL Normal 8.5-10.5 [facility] Comment on above: Performed By: #### C BCA, CMP, 3040-3, 48210-7, 72854-1, 70726-4, 64118-5, PINR, 49656-1, 36667-7 #### [facility] ([id number]) [address] [place] [address] [place] [address] Chloride [Moles/Vol] 106 mmol/L Normal 98-[address] [facility] Comment on above: Performed By: #### C BCA, CMP, 3040-3, 73510-0, 17615-0, 73655-4, 78790-5, PINR, 78557-6, 28406-7 #### [facility] ([id number]) [address] [place] [address] 14750 CO2 [Moles/Vol] 25 mmol/L Normal 22-32 [facility] Comment on above: Performed By: #### C BCA, CMP, 3040-3, 34446-3, 72311-4, 66994-3, 47669-3, PINR, 29762-7, 88321-5 #### [facility] ([id number]) [address] [place] [address] Creatinine [Mass/Vol] 0.57 mg/dL Normal 0.40-1.00 [facility] Comment on above: Result Comment: METH OD TRACEABLE TO IDMS STANDARD Performed By: #### C BCA, CMP, 3040-3, 19166-0, 63454-7, 58414-4, 36638-8, PINR, 56966-0, 09469-3 #### [facility] ([id number]) [address] [place] [address] 10735 GFR/1.73 sq M.predicted among non-blacks MDRD (S/P/Bld) [Vol rate/Area] 90 mL/min/{1.73_m2} Normal >59 [facility] Comment on above: Result Comment: Reported eGFR is based on the CKD-EPI 2020 equation that does not use a race coefficient. Performed By: #### C BCA, CMP, 3040-3, 52537-8, 58332-8, 00663-9, 06793-8, PINR, 40532-9, 04830-0 #### [facility] ([id number]) [address] [place] [address] 24698 Glucose [Mass/Vol] 93 mg/dL Normal 65-99 [facility] Comment on above: Performed By: #### C BCA, CMP, 3040-3, 55972-6, 42466-9, 73476-9, 13431-2, PINR, 51110-6, 23928-9 #### [facility] ([id number]) [address] [place] [address] 31070 Potassium [Moles/Vol] 3.9 mmol/L Normal 3.5-5.0 [facility] Comment on above: Performed By: #### C BCA, CMP, 3040-3, 09161-5, 27836-2, 54783-1, 34965-4, PINR, 96992-2, 57361-4 #### [facility] ([id number]) [address] [place] [address] 49809 Protein [Mass/Vol] 6.2 g/dL Normal 6.0-8.0 [facility] Comment on above: Performed By: #### C BCA, CMP, 3040-3, 50295-0, 99621-7, 78192-9, 27170-0, PINR, 54449-8, 91340-2 #### [facility] ([id number]) [address] [place] [address] 50444 Sodium [Moles/Vol] 138 mmol/L Normal 134-146 [facility] Comment on above: Performed By: #### C BCA, CMP, 3040-3, 36587-3, 45077-2, 73202-7, 09944-2, PINR, 47329-7, 55002-6 #### [facility] ([id number]) [address] [place] [address] 63803 Urea nitrogen [Mass/Vol] 18 mg/dL Normal 5-27 [facility] Comment on above: Performed By: #### C BCA, CMP, 3040-3, 67313-0, 99619-6, 36236-0, 95085-1, PINR, 34132-8, 26682-0 #### [facility] ([id number]) [address] [place] [address] 86735 MAGNESIUMon 11-06-2023 Magnesium [Mass/Vol] 1.5 mg/dL Low 1.8-2.[address] [facility] Comment on above: Performed By: #### C BCA, CMP, 3040-3, 50153-4, 70146-2, 46204-4, 49275-4, PINR, 94891-9, 14209-1 #### [facility] ([id number]) [address] [place] [address] 15710 CBC AND AUTO DIFFon 12-26-20 23 ABSOLUTE BASOPHIL 0.0 X10E9/L Normal 0.0-0.2 [facility] Comment on above: Performed By: #### C BCA, CMP, 3040-3, 97810-6, 93600-3, 23056-7, 66148-5, PINR, 89397-6, 68681-7 #### [facility] ([id number]) [address] [place] [address] [place] [address] ABSOLUTE NEUTROPHIL 3.5 X10E9/L Normal 1.5-6.[address] [facility] Comment on above: Performed By: #### C BCA, CMP, 3040-3, 20558-7, 42735-3, 77286-6, 53328-5, PINR, 78443-1, 59351-1 #### [facility] ([id number]) [address] [place] [address] [place] [address] Basophils/100 WBC (Bld) 0.4 % Normal [facility] Comment on above: Performed By: #### C BCA, CMP, 3040-3, 12760-4, 95059-1, 71120-6, 87019-6, PINR, 48516-9, 32747-9 #### [facility] ([id number]) [address] [place] [address] Eosinophils (Bld) [#/Vol] 0.0 10*3/uL Normal 0.0-0.4 [facility] Comment on above: Performed By: #### C BCA, CMP, 3040-3, 17681-5, 44566-0, 23923-8, 72642-7, PINR, 30415-2, 50896-7 #### [facility] ([id number]) [address] [place] [address] [place] [address] Eosinophils/100 WBC (Bld) 0.8 % Normal [facility] Comment on above: Performed By: #### C BCA, CMP, 3040-3, 51213-3, 04492-8, 19608-0, 13279-1, PINR, 87691-3, 04994-4 #### [facility] ([id number]) [address] [place] [address] Erythrocyte distribution width (RBC) [Ratio] 18.4 % High 11.5-15.0 [facility] Comment on above: Performed By: #### C BCA, CMP, 3040-3, 55301-4, 19483-1, 50996-0, 42997-0, PINR, 89767-4, 16372-0 #### [facility] ([id number]) [address] [place] [address] Hematocrit (Bld) [Volume fraction] 35.6 % Normal 35-47 [facility] Comment on above: Performed By: #### C BCA, CMP, 3040-3, 56952-2, 64285-7, 51507-6, 27312-2, PINR, 53187-5, 38917-7 #### [facility] ([id number]) [address] [place] [address] Hemoglobin (Bld) [Mass/Vol] 11.5 g/dL Low 11.7-15.5 [facility] Comment on above: Performed By: #### C BCA, CMP, 3040-3, 29501-5, 01966-0, 02844-8, 74609-2, PINR, 22063-3, 41218-5 #### [facility] ([id number]) [address] [place] [address] 13092 Lymphocytes (Bld) [#/Vol] 0.4 10*3/uL Low 1.0-3.5 [facility] Comment on above: Performed By: #### C BCA, CMP, 3040-3, 82362-3, 81581-1, 45239-9, 10873-9, PINR, 13420-1, 29928-4 #### [facility] ([id number]) [address] [place] [address] Lymphocytes/100 WBC (Bld) 8.5 % Normal [facility] Comment on above: Performed By: #### C BCA, CMP, 3040-3, 87742-5, 83454-2, 83774-4, 04201-1, PINR, 82319-0, 07669-1 #### [facility] ([id number]) [address] [place] [address]4051 MCH (RBC) [Entitic mass] 24.0 pg Low 27-34 [facility] Comment on above: Performed By: #### C BCA, CMP, 3040-3, 54816-4, 16000-7, 43898-7, 49468-5, PINR, 94137-1, 85435-7 #### [facility] ([id number]) [address] [place] [address] MCHC (RBC) [Mass/Vol] 32.2 g/dL Normal 32-36 [facility] Comment on above: Performed By: #### C BCA, CMP, 3040-3, 31556-4, 42541-1, 70524-7, 30352-5, PINR, 33833-6, 13381-1 #### [facility] ([id number]) [address] [place] [address] 52162 MCV (RBC) [Entitic vol] 75 fL Low 80-100 [facility] Comment on above: Performed By: #### C BCA, CMP, 3040-3, 65808-0, 14883-7, 50017-7, 71468-0, PINR, 46227-2, 96157-6 #### [facility] ([id number]) [address] [place] [address] 34423 Monocytes (Bld) [#/Vol] 0.4 10*3/uL Normal 0-0.9 [facility] Comment on above: Performed By: #### C BCA, CMP, 3040-3, 07190-3, 67055-0, 99759-6, 95362-3, PINR, 49502-2, 39475-6 #### [facility] ([id number]) [address] [place] [address] 28990 Monocytes/100 WBC (Bld) 9.5 % Normal [facility] Comment on above: Performed By: #### C BCA, CMP, 3040-3, 28175-6, 49099-2, 64746-1, 57476-4, PINR, 47514-8, 64457-1 #### [facility] ([id number]) [address] [place] [address] [place] [address] Neutrophils/100 WBC (Bld) 80.8 % Normal [facility] Comment on above: Performed By: #### C BCA, CMP, 3040-3, 20606-5, 89979-5, 46117-1, 20387-5, PINR, 14830-8, 59666-7 #### [facility] ([id number]) [address] [place] [address] [place] [address] Platelet mean volume (Bld) [Entitic vol] 7.9 fL Normal 7-12 [facility] Comment on above: Performed By: #### C BCA, CMP, 3040-3, 25808-0, 73400-2, 43910-3, 63388-5, PINR, 19266-0, 95244-7 #### [facility] ([id number]) [address] [place] [address] 77554 Platelets (Bld) [#/Vol] 497 10*3/uL High 150-450 [facility] Comment on above: Performed By: #### C BCA, CMP, 3040-3, 04755-8, 09685-5, 05897-1, 19726-9, PINR, 26013-0, 08773-1 #### [facility] ([id number]) [address] [place] [address] 93741 RBC COUNT 4.78 X10E12/L Normal 3.80-5.20 [facility] Comment on above: Performed By: #### C BCA, CMP, 3040-3, 20979-5, 25230-4, 54633-9, 55226-3, PINR, 35699-6, 19082-3 #### [facility] ([id number]) [address] [place] [address] 29409 WBC (Bld) [#/Vol] 4.4 10*3/uL Normal 4.0-11.0 [facility] Comment on above: Performed By: #### C BCA, CMP, 3040-3, 64235-4, 06494-3, 29359-8, 45212-8, PINR, 66370-6, 26302-0 #### [facility] ([id number]) [address] [place] [address] 25350 COMPREHENSIVE METABOLIC PANE [facility] 11-05-2023 Albumin [Mass/Vol] 2.7 g/dL Low 3.2-5.3 [facility] Comment on above: Performed By: #### C BCA, CMP, 3040-3, 88795-4, 09947-4, 56555-5, 88879-6, PINR, 97709-6, 29823-0 #### [facility] ([id number]) [address] [place] [address] 06526 ALP [Catalytic activity/Vol] 63 U/L Normal 39-130 [facility] Comment on above: Performed By: #### C BCA, CMP, 3040-3, 18043-4, 65112-1, 26338-2, 04080-2, PINR, 86927-5, 86096-9 #### [facility] ([id number]) [address] [place] [address] 46207 ALT [Catalytic activity/Vol] 18 U/L Normal 0-31 [facility] Comment on above: Performed By: #### C BCA, CMP, 3040-3, 44138-9, 69057-4, 69672-9, 82302-2, PINR, 14927-0, 03053-3 #### [facility] ([id number]) [address] [place] [address] 72884 Anion gap [Moles/Vol] 7 mmol/L Normal 5-15 [facility] Comment on above: Performed By: #### C BCA, CMP, 3040-3, 13503-0, 27433-9, 47595-5, 51274-8, PINR, 34209-2, 75517-5 #### [facility] ([id number]) [address] [place] [address] [place] [address] AST [Catalytic activity/Vol] 34 U/L Normal 0-41 [facility] Comment on above: Performed By: #### C BCA, CMP, 3040-3, 01655-1, 17776-1, 80584-0, 74703-4, PINR, 44245-5, 72234-1 #### [facility] ([id number]) [address] [place] [address] 11772 Bilirubin [Mass/Vol] 0.7 mg/dL Normal 0.3-1.[address] [facility] Comment on above: Result Comment: RESU LTS QUESTIONABLE DUE TO HEMOLYSIS Performed By: #### C BCA, CMP, 3040-3, 60908-5, 35505-3, 31544-4, 00182-1, PINR, 56619-9, 80219-3 #### [facility] ([id number]) [address] [place] [address] 48493 Calcium [Mass/Vol] 8.3 mg/dL Low 8.5-10.5 [facility] Comment on above: Performed By: #### C BCA, CMP, 3040-3, 97768-9, 37408-1, 83041-5, 31078-8, PINR, 59325-8, 38778-5 #### [facility] ([id number]) [address] [place] [address] 19367 Chloride [Moles/Vol] 105 mmol/L Normal 98-[address] [facility] Comment on above: Performed By: #### C BCA, CMP, 3040-3, 99592-4, 85571-0, 94059-1, 40434-0, PINR, 31907-8, 79525-0 #### [facility] ([id number]) [address] [place] [address] 12413 CO2 [Moles/Vol] 23 mmol/L Normal 22-32 [facility] Comment on above: Performed By: #### C BCA, CMP, 3040-3, 54730-6, 05986-5, 25369-9, 68887-8, PINR, 93740-4, 46614-4 #### [facility] ([id number]) [address] [place] [address] 15337 Creatinine [Mass/Vol] 0.65 mg/dL Normal 0.40-1.00 [facility] Comment on above: Result Comment: METH OD TRACEABLE TO IDMS STANDARD Performed By: #### C BCA, CMP, 3040-3, 86262-0, 94391-3, 81306-9, 73518-4, PINR, 29471-1, 24163-9 #### [facility] ([id number]) [address] [place] [address] 17926 GFR/1.73 sq M.predicted among non-blacks MDRD (S/P/Bld) [Vol rate/Area] 87 mL/min/{1.73_m2} Normal >59 [facility] Comment on above: Result Comment: Reported eGFR is based on the CKD-EPI 2020 equation that does not use a race coefficient. Performed By: #### C BCA, CMP, 3040-3, 41348-4, 14577-4, 73344-5, 94030-3, PINR, 28934-9, 30854-0 #### [facility] ([id number]) [address] [place] [address] 88098 Glucose [Mass/Vol] 94 mg/dL Normal 65-99 [facility] Comment on above: Performed By: #### C BCA, CMP, 3040-3, 01217-3, 56847-0, 55046-9, 04152-4, PINR, 55985-5, 21576-3 #### [facility] ([id number]) [address] [place] [address] 46615 Potassium [Moles/Vol] 4.3 mmol/L Normal 3.5-5.0 [facility] Comment on above: Result Comment: SPEC IMEN HEMOLYZED, RESULTS INCREASED Performed By: #### C BCA, CMP, 3040-3, 80813-8, 26110-8, 04792-5, 35784-5, PINR, 93416-9, 61359-5 #### [facility] ([id number]) [address] [place] [address], [place] [address] Protein [Mass/Vol] 5.8 g/dL Low 6.0-8.0 [facility] Comment on above: Performed By: #### C BCA, CMP, 3040-3, 22641-9, 29754-4, 84982-1, 69413-2, PINR, 24820-2, 37754-4 #### [facility] ([id number]) [address] [place] [address] 89648 Sodium [Moles/Vol] 135 mmol/L Normal 134-146 [facility] Comment on above: Performed By: #### C BCA, CMP, 3040-3, 00691-1, 90526-9, 65146-4, 38492-0, PINR, 92165-9, 18205-6 #### [facility] ([id number]) [address] [place] [address] 47476 Urea nitrogen [Mass/Vol] 27 mg/dL Normal 5-27 [facility] Comment on above: Performed By: #### C BCA, CMP, 3040-3, 67327-3, 56698-0, 90230-0, 48250-7, PINR, 76254-9, 26475-7 #### [facility] ([id number]) [address] [place] [address] 01440 MAGNESIUMon 11-05-2023 Magnesium [Mass/Vol] 1.8 mg/dL Normal 1.8-2.[address] [facility] Comment on above: Performed By: #### C BCA, CMP, 3040-3, 65234-1, 60030-1, 30208-0, 54710-6, PINR, 31496-3, 37825-3 #### [facility] ([id number]) [address] [place] [address] 44999 CBC AND AUTO DIFFon 11-04-20 ABSOLUTE BASOPHIL 0.0 X10E9/L Normal 0.0-0.2 [facility] Comment on above: Performed By: #### V BG #### [facility] ([id number]) [address] [place] [address] 88577 ABSOLUTE NEUTROPHIL 6.5 X10E9/L Normal 1.5-6.[address] [facility] Comment on above: Performed By: #### V BG #### [facility] ([id number]) [address] [place] [address] 43006 Basophils/100 WBC (Bld) 0.3 % Normal [facility] Comment on above: Performed By: #### V BG #### [facility] ([id number]) [address] [place] [address] 03779 Eosinophils (Bld) [#/Vol] 0.0 10*3/uL Normal 0.0-0.4 [facility] Comment on above: Performed By: #### V BG #### [facility] ([id number]) [address] [place] [address] 72741 Eosinophils/100 WBC (Bld) 0.1 % Normal [facility] Comment on above: Performed By: #### V BG #### [facility] ([id number]) [address] [place] [address] 85151 Erythrocyte distribution width (RBC) [Ratio] 19.2 % High 11.5-15.0 [facility] Comment on above: Performed By: #### V BG #### [facility] ([id number]) [address] [place] [address] 86755 Hematocrit (Bld) [Volume fraction] 38.9 % Normal 35-47 [facility] Comment on above: Performed By: #### V BG #### [facility] ([id number]) [address] [place] [address] 71350 Hemoglobin (Bld) [Mass/Vol] 12.4 g/dL Normal 11.7-15.5 [facility] Comment on above: Performed By: #### V BG #### [facility] ([id number]) [address] [place] [address] 31079 Lymphocytes (Bld) [#/Vol] 0.2 10*3/uL Low 1.0-3.5 [facility] Comment on above: Performed By: #### V BG #### [facility] ([id number]) [address] [place] [address] 75341 Lymphocytes/100 WBC (Bld) 3.0 % Normal [facility] Comment on above: Performed By: #### V BG #### [facility] ([id number]) [address] [place] [address] 07670 MCH (RBC) [Entitic mass] 24.1 pg Low 27-34 [facility] Comment on above: Performed By: #### V BG #### [facility] ([id number]) [address] [place] [address] 62692 MCHC (RBC) [Mass/Vol] 31.8 g/dL Low 32-36 [facility] Comment on above: Performed By: #### V BG #### [facility] ([id number]) [address] [place] [address] 56247 MCV (RBC) [Entitic vol] 76 fL Low 80-100 [facility] Comment on above: Performed By: #### V BG #### [facility] ([id number]) [address] [place] [address] 21929 Monocytes (Bld) [#/Vol] 0.1 10*3/uL Normal 0-0.9 [facility] Comment on above: Performed By: #### V BG #### [facility] ([id number]) [address] [place] [address] 34194 Monocytes/100 WBC (Bld) 1.7 % Normal [facility] Comment on above: Performed By: #### V BG #### [facility] ([id number]) [address] [place] [address] 98197 Neutrophils/100 WBC (Bld) 94.9 % Normal [facility] Comment on above: Performed By: #### V BG #### [facility] ([id number]) [address] [place] [address] 53344 Platelet mean volume (Bld) [Entitic vol] 8.6 fL Normal 7-12 [facility] Comment on above: Performed By: #### V BG #### [facility] ([id number]) [address] [place] [address] 02823 Platelets (Bld) [#/Vol] 488 10*3/uL High 150-450 [facility] Comment on above: Performed By: #### V BG #### [facility] ([id number]) [address] [place] [address] 97523 RBC COUNT 5.12 X10E12/L Normal 3.80-5.20 [facility] Comment on above: Performed By: #### V BG #### [facility] ([id number]) [address] [place] [address] 85512 WBC (Bld) [#/Vol] 6.8 10*3/uL Normal 4.0-11.0 [facility] Comment on above: Performed By: #### V BG #### [facility] ([id number]) [address] [place] [address] 85409 COMPREHENSIVE METABOLIC PANE Nick 11-04-2023 Albumin [Mass/Vol] 3.3 g/dL Normal 3.2-5.3 [facility] Comment on above: Performed By: #### V BG #### [facility] ([id number]) [address] [place] [address] 67779 ALP [Catalytic activity/Vol] 78 U/L Normal 39-130 [facility] Comment on above: Performed By: #### V BG #### [facility] ([id number]) [address] [place] [address] 18584 ALT [Catalytic activity/Vol] 20 U/L Normal 0-31 [facility] Comment on above: Performed By: #### V BG #### [facility] ([id number]) [address] [place] [address] 03362 Anion gap [Moles/Vol] 8 mmol/L Normal 5-15 [facility] Comment on above: Performed By: #### V BG #### [facility] ([id number]) [address] [place] [address] 85769 AST [Catalytic activity/Vol] 32 U/L Normal 0-41 [facility] Comment on above: Performed By: #### V BG #### [facility] ([id number]) [address] [place] [address] 83492 Bilirubin [Mass/Vol] 0.6 mg/dL Normal 0.3-1.[address] [facility] Comment on above: Performed By: #### V BG #### [facility] ([id number]) [address] [place] [address] 86142 Calcium [Mass/Vol] 8.6 mg/dL Normal 8.5-10.5 [facility] Comment on above: Performed By: #### V BG #### [facility] ([id number]) [address] [place] [address] 81007 Chloride [Moles/Vol] 104 mmol/L Normal 98-[address] [facility] Comment on above: Performed By: #### V BG #### [facility] ([id number]) [address] [place] [address] 95796 CO2 [Moles/Vol] 24 mmol/L Normal 22-32 [facility] Comment on above: Performed By: #### V BG #### [facility] ([id number]) [address] [place] [address] 73981 Creatinine [Mass/Vol] 0.60 mg/dL Normal 0.40-1.00 [facility] Comment on above: Result Comment: METH OD TRACEABLE TO IDMS STANDARD Performed By: #### V BG #### [facility] ([id number]) [address] [place] [address] 44662 GFR/1.73 sq M.predicted among non-blacks MDRD (S/P/Bld) [Vol rate/Area] 88 mL/min/{1.73_m2} Normal >59 [facility] Comment on above: Result Comment: Reported eGFR is based on the CKD-EPI 2020 equation that does not use a race coefficient. Performed By: #### V BG #### [facility] ([id number]) [address] [place] [address] 45414 Glucose [Mass/Vol] 119 mg/dL High 65-99 [facility] Comment on above: Performed By: #### V BG #### [facility] ([id number]) [address] [place] [address] 30508 Potassium [Moles/Vol] 3.9 mmol/L Normal 3.5-5.0 [facility] Comment on above: Performed By: #### V BG #### [facility] ([id number]) [address] [place] [address] 10768 Protein [Mass/Vol] 6.6 g/dL Normal 6.0-8.0 [facility] Comment on above: Performed By: #### V BG #### [facility] ([id number]) [address] [place] [address] 16999 Sodium [Moles/Vol] 136 mmol/L Normal 134-146 [facility] Comment on above: Performed By: #### V BG #### [facility] ([id number]) [address] [place] [address] 92472 Urea nitrogen [Mass/Vol] 18 mg/dL Normal 5-27 [facility] Comment on above: Performed By: #### V BG #### [facility] ([id number]) [address] [place] [address] 46526 MAGNESIUMon 11-04-2023 Magnesium [Mass/Vol] 1.8 mg/dL Normal 1.8-2.[address] [facility] Comment on above: Performed By: #### V BG #### [facility] ([id number]) [address] [place] [address] 24221 Natriuretic peptide B [Mass/ Vol]on 11-04-2023 Natriuretic peptide B (Bld) [Mass/Vol] 435 pg/mL High <100.0 [facility] Comment on above: Performed By: #### V BG #### [facility] ([id number]) [address] [place] [address] 62823 PHOSPHORUSon 11-04-2023 Phosphate [Mass/Vol] 3.8 mg/dL Normal 2.4-4.[address] [facility] Comment on above: Performed By: #### V BG #### [facility] ([id number]) [address] [place] [address] 69643 Procalcitonin IA [Mass/Vol]o n 11-04-2023 PROCALCITONIN 0.23 ng/mL High <0.05 [facility] Comment on above: Result Comment: NOTE <0.50 ng/mL - Low risk of severe sepsis and/or septic shock. <2.00 ng/mL - Recommend retesting within 6-24 hours. >2.00 ng/mL - High risk of sepsis and/or septic shock. Performed By: #### V BG #### [facility] ([id number]) [address] [place] [address] 42467 RESP PATHOGENS/OHFK-RqZ-[id number] 11-04-2023 Respiratory pathogens DNA and RNA panel MADISON+non-probe (Nph) SPECIMEN SOURCE NASO PHARYNX ADENOVIRUS Not detected (qualifier value) CORONAVIRUS 229E Not detected (qualifier value) CORONAVIRUS HKU1 Not detected (qualifier value) CORONAVIRUS NL63 Not detected (qualifier value) CORONAVIRUS OC43 Not detected (qualifier value) HUMAN METAPNEUVIRUS Not detected (qualifier value) RHINO/ENTEROVIRUS Not detected (qualifier value) INFLUENZA A Not detected (qualifier value) INFLUENZA B Not detected (qualifier value) PARAINFLUENZA 1 Not detected (qualifier value) PARAINFLUENZA 2 Not detected (qualifier value) PARAINFLUENZA 3 Not detected (qualifier value) PARAINFLUENZA 4 Not detected (qualifier value) RESP SYNCYTIAL VIRUS Not detected (qualifier value) BORD PARAPERTUSSIS Not detected (qualifier value) BORDETELLA PERTUSSIS Not detected (qualifier value) CHLAM.PNEUMONIAE Not detected (qualifier value) MYCO. PNEUMONIAE Not detected (qualifier value) SARS CoV 2 Detected (qualifier value) NOTE The BioFire Respiratory Panel 2.1 (RP2.1) is a multiplexed nucleic acid test intended for the simultaneous qualitative detection and differentiation of nucleic acid from multiple viral and bacterial respiratory organisms, including nucleic acid from Severe Acute Respiratory Syndrome Coronavirus 2 (SARS-CoV-2), in nasopharyngeal swabs obtained from individuals suspected of COVID-19 by their healthcare provider. Testing is limited to laboratories certified under the Clinical Laboratory Improvement Amendments of 1988 (CLIA), to perform high complexity or moderate complexity tests. SARS-CoV-2 RNA and nucleic acids from the other respiratory viral and bacterial organisms identified by this test are generally detectable in nasopharyngeal swabs during the acute phase of infection. The detection and identification of specific viral and bacterial nucleic acids from individuals exhibiting signs and/or symptoms of respiratory infection is indicative of the presence of the identified microorganism and aids in the diagnosis of respiratory infection if used in conjunction with other clinical and epidemiological information. Positive results are indicative of the presence of the identified organism, but do not rule out co-infection with other pathogens. The agent(s) detected by the BioFire RP2.1 may not be the definite cause of disease and clinical correlation with patient history and other diagnostic information is necessary to determine patient infection status. Negative results in the setting of a respiratory illness may be due to infection with pathogens not detected by this test, or lower respiratory tract infection that may not be detected by a nasopharyngeal specimen. Negative results do not preclude SARS-CoV-2 infection and should not be used as the sole basis for patient management decisions. Negative FRANCES-CoV-2 results must be combined with clinical observations, patient history and epidemiological information. Negative results for other organisms identified by the test may require additional laboratory testing when evaluating a patient with possible respiratory tract infection. Normal [facility] Comment on above: Performed By: #### C BCA, CMP, 3040-3, 18233-6, 54091-7, 51484-6, 80284-2, PINR, 89960-4, 94602-4 #### [facility] ([id number]) [address] [place] [address], [place] [address] TSH WITH REFLEXon 11-04-2023 TSH 1.74 uIU/mL Normal 0.49-4.67 [facility] Comment on above: Performed By: #### V BG #### [facility] ([id number]) [address] [place] [address] 66240 BLOOD CULTUREon 11-03-2023 Bacteria identified Aer cx Nom (Bld) SPECIMEN NOTES SUBOPTIMAL VOLUME OF BLOOD COLLECTED, RESULTS MAY BE AFFECTED. CULTURE RESULTS NO GROWTH 5 DAYS Normal [facility] Comment on above: Performed By: #### C BCA, CMP, 3040-3, 96280-8, 10818-3, 86031-6, 22306-2, PINR, 12701-7, 61783-3 #### [facility] ([id number]) [address] [place] [address] 96020 Bacteria identified Aer cx Nom (Bld) CULTURE RESULTS NO GROWTH 5 DAYS Normal [facility] CBC AND AUTO DIFFon 11-03-20 ABSOLUTE BASOPHIL 0.1 X10E9/L Normal 0.0-0.2 [facility] Comment on above: Performed By: #### C BCA, CMP, 3040-3, 90419-1, 57785-7, 61158-9, 28114-2, PINR, 09841-3, 00206-3 #### [facility] ([id number]) [address] [place] [address] 38515 ABSOLUTE NEUTROPHIL 8.6 X10E9/L High 1.5-6.[address] [facility] Comment on above: Performed By: #### C BCA, CMP, 3040-3, 91832-8, 99875-6, 82025-0, 18188-7, PINR, 08803-8, 24305-2 #### [facility] ([id number]) [address] [place] [address] 99193 Basophils/100 WBC (Bld) 0.8 % Normal [facility] Comment on above: Performed By: #### C BCA, CMP, 3040-3, 45546-8, 92783-3, 01602-2, 41626-3, PINR, 99496-7, 93095-8 #### [facility] ([id number]) [address] [place] [address] 14064 Eosinophils (Bld) [#/Vol] 0.0 10*3/uL Normal 0.0-0.4 [facility] Comment on above: Performed By: #### C BCA, CMP, 3040-3, 88840-3, 67202-4, 11379-8, 97897-8, PINR, 10382-7, 93231-3 #### [facility] ([id number]) [address] [place] [address] 06633 Eosinophils/100 WBC (Bld) 0.1 % Normal [facility] Comment on above: Performed By: #### C BCA, CMP, 3040-3, 23833-7, 00969-9, 11505-1, 93523-8, PINR, 34154-8, 82943-3 #### [facility] ([id number]) [address] [place] [id number] Erythrocyte distribution width (RBC) [Ratio] 19.0 % High 11.5-15.0 [facility] Comment on above: Performed By: #### C BCA, CMP, 3040-3, 20708-2, 55242-4, 75462-9, 37691-5, PINR, 60510-9, 83362-6 #### [facility] ([id number]) [address] [place] [address] 95728 Hematocrit (Bld) [Volume fraction] 41.4 % Normal 35-47 [facility] Comment on above: Performed By: #### C BCA, CMP, 3040-3, 69708-1, 15898-4, 17291-1, 25291-8, PINR, 43512-0, 42547-1 #### [facility] ([id number]) [address] [place] [address] 24624 Hemoglobin (Bld) [Mass/Vol] 13.5 g/dL Normal 11.7-15.5 [facility] Comment on above: Performed By: #### C BCA, CMP, 3040-3, 34138-7, 87853-6, 89735-7, 88010-2, PINR, 37925-6, 36032-6 #### [facility] ([id number]) [address] [place] [id number] Lymphocytes (Bld) [#/Vol] 0.2 10*3/uL Low 1.0-3.5 [facility] Comment on above: Performed By: #### C BCA, CMP, 3040-3, 07591-5, 60543-7, 08557-4, 05033-4, PINR, 28984-9, 91066-5 #### [facility] ([id number]) [address] [place] [address] 20844 Lymphocytes/100 WBC (Bld) 1.7 % Normal [facility] Comment on above: Performed By: #### C BCA, CMP, 3040-3, 93815-7, 71514-6, 06270-6, 16523-3, PINR, 73275-3, 62589-6 #### [facility] ([id number]) [address] [place] [address] 54849 MCH (RBC) [Entitic mass] 24.6 pg Low 27-34 [facility] Comment on above: Performed By: #### C BCA, CMP, 3040-3, 59869-9, 69724-4, 30268-5, 44769-7, PINR, 85731-4, 62656-2 #### [facility] ([id number]) [address] [place] [address] 16329 MCHC (RBC) [Mass/Vol] 32.7 g/dL Normal 32-36 [facility] Comment on above: Performed By: #### C BCA, CMP, 3040-3, 18325-9, 75735-9, 68157-1, 75625-0, PINR, 13221-3, 30685-8 #### [facility] ([id number]) [address] [place] [address] 16292 MCV (RBC) [Entitic vol] 75 fL Low 80-100 [facility] Comment on above: Performed By: #### C BCA, CMP, 3040-3, 87543-4, 22370-9, 29834-8, 03346-4, PINR, 40839-1, 95143-4 #### [facility] ([id number]) [address] [place] [address] 65375 Monocytes (Bld) [#/Vol] 0.7 10*3/uL Normal 0-0.9 [facility] Comment on above: Performed By: #### C BCA, CMP, 3040-3, 51576-1, 86038-9, 65091-6, 74865-6, PINR, 41403-2, 89699-1 #### [facility] ([id number]) [address] [place] [address] 27670 Monocytes/100 WBC (Bld) 7.6 % Normal [facility] Comment on above: Performed By: #### C BCA, CMP, 3040-3, 45746-1, 70093-3, 83050-4, 35894-0, PINR, 27120-2, 99371-3 #### [facility] ([id number]) [address] [place] [address] 73251 Neutrophils/100 WBC (Bld) 89.8 % Normal [facility] Comment on above: Performed By: #### C BCA, CMP, 3040-3, 73430-1, 67906-7, 46319-8, 88994-3, PINR, 49435-0, 54602-2 #### [facility] ([id number]) [address] [place] [address] 46787 Platelet mean volume (Bld) [Entitic vol] 8.1 fL Normal 7-12 [facility] Comment on above: Performed By: #### C BCA, CMP, 3040-3, 10458-3, 75995-6, 09027-5, 95120-9, PINR, 58374-6, 50325-9 #### [facility] ([id number]) [address] [place] [address] 89102 Platelets (Bld) [#/Vol] 599 10*3/uL High 150-450 [facility] Comment on above: Performed By: #### C BCA, CMP, 3040-3, 53277-2, 82373-0, 18403-4, 91912-3, PINR, 09890-9, 72896-7 #### [facility] ([id number]) [address] [place] [address] 41623 RBC COUNT 5.51 X10E12/L High 3.80-5.20 [facility] Comment on above: Performed By: #### C BCA, CMP, 3040-3, 94408-5, 61492-6, 11215-9, 65685-7, PINR, 82091-9, 49588-7 #### [facility] ([id number]) [address] [place] [address] 04949 WBC (Bld) [#/Vol] 9.6 10*3/uL Normal 4.0-11.0 [facility] Comment on above: Performed By: #### C BCA, CMP, 3040-3, 52674-9, 45699-7, 17934-8, 52844-7, PINR, 27727-5, 16647-3 #### [facility] ([id number]) [address] [place] [address] 45860 COMPREHENSIVE METABOLIC PANE Nick 11-03-2023 Albumin [Mass/Vol] 4.3 g/dL Normal 3.2-5.3 [facility] Comment on above: Performed By: #### C BCA, CMP, 3040-3, 39064-4, 00209-2, 02795-8, 45740-2, PINR, 60020-5, 71791-2 #### [facility] ([id number]) [address] [place] [address] 35424 ALP [Catalytic activity/Vol] 100 U/L Normal 39-130 [facility] Comment on above: Performed By: #### C BCA, CMP, 3040-3, 24138-5, 91570-3, 76363-1, 17307-0, PINR, 19181-2, 36859-4 #### [facility] ([id number]) [address] [place] [address] [place] [address] ALT [Catalytic activity/Vol] 23 U/L Normal 0-31 [facility] Comment on above: Performed By: #### C BCA, CMP, 3040-3, 16951-9, 00619-1, 39539-6, 61682-5, PINR, 49726-5, 67346-2 #### [facility] ([id number]) [address] [place] [address] [place] [address] Anion gap [Moles/Vol] 6 mmol/L Normal 5-15 [facility] Comment on above: Performed By: #### C BCA, CMP, 3040-3, 52684-8, 02276-4, 44340-1, 27111-0, PINR, 44194-0, 21526-4 #### [facility] ([id number]) [address] [place] [address] 13860 AST [Catalytic activity/Vol] 32 U/L Normal 0-41 [facility] Comment on above: Performed By: #### C BCA, CMP, 3040-3, 30865-0, 28330-4, 71808-1, 61140-1, PINR, 30077-2, 50225-5 #### [facility] ([id number]) [address] [place] [address] [place] [address] Bilirubin [Mass/Vol] 0.7 mg/dL Normal 0.3-1.[address] [facility] Comment on above: Performed By: #### C BCA, CMP, 3040-3, 44420-8, 40402-2, 23117-0, 16351-9, PINR, 58688-0, 10528-1 #### [facility] ([id number]) [address] [place] [address] [place] [address] Calcium [Mass/Vol] 9.6 mg/dL Normal 8.5-10.5 [facility] Comment on above: Performed By: #### C BCA, CMP, 3040-3, 63087-1, 24518-5, 75399-1, 38439-5, PINR, 40477-4, 92246-3 #### [facility] ([id number]) [address] [place] [address] [place] [address] Chloride [Moles/Vol] 101 mmol/L Normal 98-[address] [facility] Comment on above: Performed By: #### C BCA, CMP, 3040-3, 68372-4, 11905-8, 28968-5, 47271-6, PINR, 53716-8, 65489-7 #### [facility] ([id number]) [address] [place] [address] [place] [address] CO2 [Moles/Vol] 29 mmol/L Normal 22-32 [facility] Comment on above: Performed By: #### C BCA, CMP, 3040-3, 55486-7, 89355-2, 26809-4, 85116-6, PINR, 19727-3, 59694-3 #### [facility] ([id number]) [address] [place] [address] [place] [address] Creatinine [Mass/Vol] 0.65 mg/dL Normal 0.40-1.00 [facility] Comment on above: Result Comment: METH OD TRACEABLE TO IDMS STANDARD Performed By: #### C BCA, CMP, 3040-3, 60192-4, 44626-9, 83533-0, 66527-9, PINR, 95129-9, 65487-3 #### [facility] ([id number]) [address] [place] [address] 38371 GFR/1.73 sq M.predicted among non-blacks MDRD (S/P/Bld) [Vol rate/Area] 87 mL/min/{1.73_m2} Normal >59 [facility] Comment on above: Result Comment: Reported eGFR is based on the CKD-EPI 2020 equation that does not use a race coefficient. Performed By: #### C BCA, CMP, 3040-3, 68675-7, 67255-6, 61267-1, 72201-4, PINR, 45631-8, 60694-3 #### [facility] ([id number]) [address] [place] [address] 67193 Glucose [Mass/Vol] 107 mg/dL High 65-99 [facility] Comment on above: Performed By: #### C BCA, CMP, 3040-3, 11850-5, 75736-9, 22181-0, 30131-4, PINR, 43430-3, 30024-3 #### [facility] ([id number]) [address] [place] [address] 73160 Potassium [Moles/Vol] 4.6 mmol/L Normal 3.5-5.0 [facility] Comment on above: Performed By: #### C BCA, CMP, 3040-3, 55391-5, 11375-3, 45407-6, 72314-3, PINR, 79757-5, 34429-5 #### [facility] ([id number]) [address] [place] [address] 23263 Protein [Mass/Vol] 7.9 g/dL Normal 6.0-8.0 [facility] Comment on above: Performed By: #### C BCA, CMP, 3040-3, 92715-2, 03333-7, 77959-2, 17776-9, PINR, 72615-4, 02689-6 #### [facility] ([id number]) [address] [place] [address] 31832 Sodium [Moles/Vol] 136 mmol/L Normal 134-146 [facility] Comment on above: Performed By: #### C BCA, CMP, 3040-3, 44311-5, 39876-7, 87657-1, 04258-7, PINR, 29096-8, 28150-1 #### [facility] ([id number]) [address] [place] [address] 87837 Urea nitrogen [Mass/Vol] 22 mg/dL Normal 5-27 [facility] Comment on above: Performed By: #### C BCA, CMP, 3040-3, 77330-6, 91539-7, 56417-4, 18097-0, PINR, 36391-2, 07354-6 #### [facility] ([id number]) [address] [place] [address] BRAIN WO CONTon CT BRAIN WO CONT CT BRAIN WO CONT CT BRAIN WO CONT: 11/03/2023 7:56 PM Clinical: Weakness. Mental status changes. EXAM: NONCONTRAST BRAIN CT Comparison: CT brain 01/19/2023 Procedure: Multi-detector CT performed through the brain without IV contrast. Automatic exposure control utilized. All CT scans at this facility use dose modulation, iterative reconstruction, and/or weight based dosing when appropriate to reduce radiation dose to as low as reasonably achievable. Findings: There is no intracranial hemorrhage, extra-axial fluid collection, mass effect, midline shift, or hydrocephalus. There continue to be low-density changes in the periventricular deep white matter, likely due to chronic small vessel ischemic change. Ethmoid sinus mucosal thickening. Left mastoidectomy changes. Changes of acute ischemia may be delayed on CT. If there is clinical concern for acute ischemia or other occult abnormality, consider MRI. IMPRESSION: * No acute intracranial findings. Stable exam. Finalized by Margarito Gilmore MD on 11/03/2023 8:16 PM Normal [facility] LIPASEon 11-03-2023 Lipase [Catalytic activity/Vol] 37 U/L Normal 17-40 [facility] Comment on above: Performed By: #### C BCA, CMP, 3040-3, 92314-2, 64845-2, 41034-1, 91059-1, PINR, 44762-2, 25131-8 #### [facility] ([id number]) [address] [place] [address] 89896 Lactate (P inocencia) [Moles/Vol]o n 11-03-2023 LACTATE W/REFLEX 1.2 mmol/L Normal 0.4-2.0 [facility] Comment on above: Result Comment: Result did not trigger repeat Lactate, re-order if needed. Performed By: #### C BCA, CMP, 3040-3, 73037-2, 54604-3, 97228-3, 48441-3, PINR, 38064-6, 37113-5 #### [facility] ([id number]) [address] [place] [address] 09570 MAGNESIUMon 11-03-2023 Magnesium [Mass/Vol] 1.9 mg/dL Normal 1.8-2.[address] [facility] Comment on above: Performed By: #### C BCA, CMP, 3040-3, 81804-8, 41654-6, 87888-0, 28829-9, PINR, 77178-2, 15343-7 #### [facility] ([id number]) [address] [place] [address] 17010 Natriuretic peptide B [Mass/ Vol]on 11-03-2023 Natriuretic peptide B (Bld) [Mass/Vol] 401 pg/mL High <100.0 [facility] Comment on above: Performed By: #### V BG #### [facility] ([id number]) [address] [place] [address] 83364 PROTIME AND INRon 11-03-2023 INR Coag (PPP) [Relative time] 1.1 {INR} Normal 0.8-1.1 [facility] Comment on above: Performed By: #### C BCA, CMP, 3040-3, 10022-5, 06969-8, 90889-5, 98075-0, PINR, 98350-2, 50856-8 #### [facility] ([id number]) [address] [place] [address] 50116 PT Coag (PPP) [Time] 12.7 s Normal 9.8-13.[address] [facility] Comment on above: Result Comment: NEW REFERENCE RANGE Performed By: #### C BCA, CMP, 3040-3, 89816-7, 36364-6, 62856-3, 98627-1, PINR, 90869-0, 43669-2 #### [facility] ([id number]) [address] [place] [address] 90667 Procalcitonin IA [Mass/Vol]o n 11-03-2023 PROCALCITONIN 0.13 ng/mL High <0.05 [facility] Comment on above: Result Comment: NOTE <0.50 ng/mL - Low risk of severe sepsis and/or septic shock. <2.00 ng/mL - Recommend retesting within 6-24 hours. >2.00 ng/mL - High risk of sepsis and/or septic shock. Performed By: #### C BCA, CMP, 3040-3, 83901-7, 52713-7, 35413-1, 07592-7, PINR, 30769-9, 60953-6 #### [facility] ([id number]) [address] [place] [address] 90419 TROPONIN Ion 11-03-2023 Troponin I.cardiac [Mass/Vol] 0.03 ng/mL Normal 0.00-0.04 [facility] Comment on above: Performed By: #### C BCA, CMP, 3040-3, 32971-9, 70721-7, 67986-9, 58785-4, PINR, 29590-7, 03341-4 #### [facility] ([id number]) [address] [place] [address] 94189 VENOUS BLOOD GASon 3 MARCIO'S TEST Normal [facility] Comment on above: Performed By: #### V BG #### [facility] ([id number]) [address] [place] [address] 24409 Base excess Calc (Bld) [Moles/Vol] 6.0 mmol/L High 0.0-2.0 [facility] Comment on above: Performed By: #### V BG #### [facility] ([id number]) [address] [place] [address] 14447 Body temperature 98.6 [degF] Normal 37.0 [facility] Comment on above: Performed By: #### V BG #### [facility] ([id number]) [address] [place] [address] 66161 HCO3 (Bld) [Moles/Vol] 32.3 mmol/L High 20.0-24.0 [facility] Comment on above: Performed By: #### V BG #### [facility] ([id number]) [address] [place] [address] 86520 Oxygen saturation in Blood 22.0 % Low >80.0 [facility] Comment on above: Performed By: #### V BG #### [facility] ([id number]) [address] [place] [address] 50155 OXYGEN SOURCE NC Normal [facility] Comment on above: Performed By: #### V BG #### [facility] ([id number]) [address] [place] [address] 05643 PCO2, VENOUS 53.9 MMHG High 35-50 [facility] Comment on above: Performed By: #### V BG #### [facility] ([id number]) [address] [place] [address] 86163 PH, VENOUS 7.385 Normal 7.320-7.420 [facility] Comment on above: Performed By: #### V BG #### [facility] ([id number]) [address] [place] [address] 42357 PO2, VENOUS 17 MMHG Low 30-50 [facility] Comment on above: Performed By: #### V BG #### [facility] ([id number]) [address] [place] [address] 40916 SAMPLE SITE N/A Normal [facility] Comment on above: Performed By: #### V BG #### [facility] ([id number]) [address] [place] [address] 71300 SAMPLE TYPE VENOUS Normal [facility] Comment on above: Performed By: #### V BG #### [facility] ([id number]) [address] [place] [address] 73030 XR CHEST 1 VWon 11-03-2023 XR CHEST 1 VW XR CHEST 1 VW XR CHEST 1 VW HISTORY: COPD. Weakness. COMPARISON: 01/19/2023 FINDINGS: AP portable upright view of the chest The trachea is to the right side as the patient is rotated significantly to the right side and limited visualization of the apical regions due to overlying mandible and mainly toward the right apex.. Cardiomediastinal contour is mildly enlarged. No focal consolidation. No pleural effusion or pneumothorax. Vascular calcifications in the right axillary artery. Bony skeleton appears unchanged. IMPRESSION: * No acute pulmonary process. Mild cardiomegaly. Limited examination due to patient mandible obscuring significant part of the right lung apex and rotation to the right Finalized by Lul Lentz MD on 11/03/2023 5:05 PM Normal [facility] aPTT Coag (PPP) [Time]on aPTT Coag (Bld) [Time] 36 s Normal 26-37 [facility] Comment on above: Result Comment: NEW REFERENCE RANGE Performed By: #### V BG #### [facility] ([id number]) [address] [facility] [place] [address] US UNI ankle/arm indiceson 1 12-30-2022 US UNI ankle/arm indices [facility] [place] [address] [place] [address] Ultrasound Report Signed Patient: Garett Nieto I MR#: [id number] : 1940 Acct:[id number] Age/Sex: 83 / F ADM Date: 10/25/23 Loc: Room: [address] [place] [address] Type: ADM IN Attending Dr: Zaira Skinner MD Ordering Provider: Kaylene Miller APRN Date of Service: 10/28/23 US/US UNI ankle/arm indices: New baseline EDEN post intervention Copies to: LIBIA Rojas MD Left ankle-brachial indices Indication for study: Peripheral vascular occlusive disease PROCEDURE: Right arm blood pressure is 155 in the left arm blood pressure is 161 mmHg. At the left ankle the posterior tibial pressure is 68 and the dorsalis pedis pressure is 60 mmHg. This gives ankle-brachial indices of 0.42 and 0.37. Waveforms by plethysmography are moderate to severely blunted. US/US UNI ankle/arm indices IMPRESSION: Severe peripheral vascular occlusive disease of the left lower extremity at rest. Impression dictated by: Henry Benton M.D.10/29/2023 11:13 AM Dictation Location: [place] [address] Tech: Genesis Carrillo Transcribed By: TOREY 10/29/23 1113 Dictated By: Henry Benton MD 10/29/23 1111 Signed By: 10/29/23 1113 Normal [facility] US arterial duplex LE LTon 1 12-30-2022 US arterial duplex LE LT [facility] [place] [address] [place] [address] Ultrasound Report Signed Patient: Garett Nieto I MR#: [id number] : 1940 Acct:[id number] Age/Sex: 83 / F ADM Date: 10/25/23 Loc: Room: [address] [place] [address] Type: ADM IN Attending Dr: Zaira Skinner MD Ordering Provider: Henry Benton MD Date of Service: 10/29/23 US/US arterial duplex LE LT: pad Copies to: MD Zaira Ibarra MD Left lower extremity arterial duplex evaluation INDICATIONS: Post procedure evaluation FINDINGS: Left lower extremity: The left common femoral and femoral artery are patent. The left popliteal artery is patent. Flow velocities are severely diminished in the calf vessels in the left lower extremity. Limited runoff was identified. US/US arterial duplex LE LT IMPRESSION: As above Impression dictated by: Juan C Anders MD10/29/2023 3:52 PM Dictation Location: [place] [address] Tech: Lauren Blake Transcribed By: TOREY 10/29/231551 Dictated By: Juan C Anders MD 10/29/231549 Signed By: 10/29/23 155 Normal [facility] Anisocytosis LM Ql (Bld)Orde red By: Neida Underwood on 10-26-2023 Anisocytosis Ql (Bld) Slight Fir [facility] Basic Metabolic Panelon 10-11 Anion gap [Moles/Vol] 13.1 mmol/L Normal 6.0-15.0 [facility] Comment on above: Performed By: #### F E and TIBC MINI, BMP #### [address] Calcium [Mass/Vol] 8.6 mg/dL Normal 8.6-10.3 [facility] Comment on above: Performed By: #### F E and TIBC MINI, BMP #### [facility] [address] [place] [address] [place] Chloride [Moles/Vol] 103 mmol/L Normal 98-107 [facility] Comment on above: Performed By: #### F E and TIBC MINI, BMP #### [facility] [address] [place] [address] [place] CO2 [Moles/Vol] 22.6 mmol/L Normal 21.0-31.0 [facility] Comment on above: Performed By: #### F E and TIBCMINI, BMP #### [facility] [address] [place] [address] [place] Creatinine [Mass/Vol] 0.47 mg/dL Low 0.60-1.20 [facility] Comment on above: Performed By: #### F E and TIBMINI Denis, BMP #### [facility] [address] [place] [address] [place] Creatinine Clr Calc Pharmacy 40.82 Normal [facility] Comment on above: Performed By: #### F E and TIBMINI Denis, BMP #### [facility] [address] [place] [address] [place] GFR/1.73 sq M.predicted MDRD (S/P/Bld) [Vol rate/Area] mL/min/{1.73_m2} Normal [facility] Comment on above: Performed By: #### F E and TIBMINI Denis, BMP #### [place] [address] [place] Glucose [Mass/Vol] 59 mg/dL Low 70-100 [facility] Comment on above: Result Comment: [place] Glucose Reference Range is dependent on time and content of last meal. Glucose of more than 200 mg/dL in a nonstressed, ambulatory subject supports the diagnosis of Diabetes Mellitus. ADA recommended reference range Performed By: #### F E and TIBC MINI, BMP #### [facility] [address] Potassium [Moles/Vol] 3.7 mmol/L Normal 3.5-5.1 [facility] Comment on above: Performed By: #### F E and TIBC, MINI, BMP #### [facility] [address] Sodium [Moles/Vol] 135 mmol/L Low 136-145 [facility] Comment on above: Performed By: #### F E and TIBC MINI, BMP #### [facility] [address] Urea nitrogen [Mass/Vol] 10 mg/dL Normal 7-25 [facility] Comment on above: Performed By: #### F E and TIBCMINI, BMP #### [facility] [address] Basophils Auto (Bld) [#/Vol] Ordered By: Neida Underwood on 10-26-2023 Basophils (Bld) [#/Vol] 0.0 10*3/uL 0.0-0.2 [facility] Basophils/100 WBC Auto (Bld) Ordered By: Neida Underwood on 10-26-2023 Basophils/100 WBC (Bld) 0.6 % . [facility] Yamileth cells [Presence] in Blo od by Light microscopyOrdered By: Neida Underwood on 10-26-2023 Anna cells LM Ql (Bld) Slight Fi [facility] Calcium [Mass/volume] in Ser um or PlasmaOrdered By: Derek Hardy on 10-26-2023 Calcium [Mass/Vol] 8.6 mg/dL 8.6-10.3 [facility] Carbon dioxide, total [Moles /volume] in Serum or PlasmaOrdered By: Derek Hardy on 10-26-2023 CO2 [Moles/Vol] 22.6 mmol/L 21.0-31.0 [facility] Chloride [Moles/volume] in S ivy or PlasmaOrdered By: Derek Hardy on 10-26-2023 Chloride [Moles/Vol] 103 mmol/L 98-107 [facility] Creatinine [Mass/volume] in Serum or PlasmaOrdered By: Derek Hardy on 10-26-2023 Creatinine [Mass/Vol] 0.47 mg/dL 0.60-1.20 [facility] Eosinophils Auto (Bld) [#/Vo l]Ordered By: Neida Underwood on 10-26-2023 Eosinophils (Bld) [#/Vol] 0.0 10*3/uL 0.0-0.45 [facility] Eosinophils/100 WBC Auto (Bl d)Ordered By: Neida Underwood on 10-26-2023 Eosinophils/100 WBC (Bld) 0.8 % . [facility] Erythrocyte distribution wid th Auto (RBC) [Ratio]Ordered By: Neida Underwood on 10-26-2023 Erythrocyte distribution width (RBC) [Ratio] 18.5 % 11.9-15.3 [facility] Ferritinon 10-26-2023 Ferritin [Mass/Vol] 15.8 ng/mL Normal 11.0-306.8 [facility] Comment on above: Result Comment: PERF ORMED BY: [facility] [address] [place] [address] PATHOLOGIST [employer]CH[employer] AYAAN PARISI M.D. Performed By: #### F E and TIBC, MINI, BMP #### [address] Ferritin [Mass/volume] in Se rum or PlasmaOrdered By: Derek Hardy on 10-26-2023 Ferritin [Mass/Vol] 15.8 ng/mL 11.0-306.8 [facility] Glucose [Mass/volume] in Ser um or PlasmaOrdered By: Derek Hardy on 10-26-2023 Glucose [Mass/Vol] 59 mg/dL 70-100 [facility] Comment on above: ADA recommended refe rence rangeRandom Glucose Reference Range is dependent on time and content of last meal. Glucose of more than 200 mg/dL in a nonstressed, ambulatory subject supports the diagnosis of Diabetes Mellitus. Hematocrit Auto (Bld) [Volum e fraction]Ordered By: Neida Underwood on 10-26-2023 Hematocrit (Bld) [Volume fraction] 38.4 % 34.0-46.4 [facility] Hemoglobin [Mass/volume] in BloodOrdered By: Neida Underwood on 10-26-2023 Hemoglobin (Bld) [Mass/Vol] 12.2 g/dL 11.8-15.4 [facility] Hypochromia LM Ql (Bld)Order ed By: Neida Underwood on 10-26-2023 Hypochromia Ql (Bld) Slight [facility] Iron [Mass/volume] in Serum or PlasmaOrdered By: Derek Hardy on 10-26-2023 Iron [Mass/Vol] 58 ug/dL 50-212 [facility] Iron and TIBC Profileon 10-11 % Iron Saturation 18.4 % Low 20-50 [facility] Comment on above: Performed By: #### F E and TIBC, MINI, BMP #### [facility] [address] [place] [address] [place] Iron [Mass/Vol] 58 ug/dL Normal 50-212 [facility] Comment on above: Performed By: #### F E and TIBC, MINI, BMP #### [facility] [address] [place] [address] [place] Total Iron Binding Capacity 316 ug/dL Normal 255-450 [facility] Comment on above: Performed By: #### F E and TIBC, MINI, BMP #### [facility] [address] [place] [address] [place] Transferrin [Mass/Vol] 226 mg/dL Normal 203-362 [facility] Comment on above: Performed By: #### F E and TIBC, MINI, BMP #### [facility] [address] [place] [address] [place] Iron binding capacity [Mass/ volume] in Serum or PlasmaOrdered By: Derek Hardy on 10-26-2023 Iron binding capacity [Mass/Vol] 316 ug/dL 255-450 [facility] Iron saturation [Mass Fracti on] in Serum or PlasmaOrdered By: Derek Hardy on 10-26-2023 Iron saturation [Mass fraction] 18.4 % 20-50 [facility] Leukocytes [#/volume] correc robert for nucleated erythrocytes in Blood by Automated counOrdered By: Neida Underwood on 10-26-2023 WBC corrected for nucl RBC Auto (Bld) [#/Vol] 5.6 10*3/uL 3.8-11.6 [facility] Lymphocytes Auto (Bld) [#/Vo l]Ordered By: Neida Underwood on 10-26-2023 Lymphocytes (Bld) [#/Vol] 0.5 10*3/uL 1.00-4.8 [facility] Lymphocytes/100 WBC Auto (Bl d)Ordered By: Neida Underwood on 10-26-2023 Lymphocytes/100 WBC (Bld) 8.8 % . [facility] MCH Auto (RBC) [Entitic mass ]Ordered By: Neida Underwood on 10-26-2023 MCH (RBC) [Entitic mass] 23.8 pg 24.7-34.3 [facility] MCHC Auto (RBC) [Mass/Vol]Or dered By: Neida Underwood on 10-26-2023 MCHC (RBC) [Mass/Vol] 31.7 g/dL 32.0-35.0 [facility] MCV Auto (RBC) [Entitic vol] Ordered By: Neida Underwood on 10-26-2023 MCV (RBC) [Entitic vol] 75.0 fL 80-100 [facility] Macrocytes LM Ql (Bld)Ordere d By: Neida Underwood on 10-26-2023 Macrocytes Ql (Bld) Slight [facility] Microcytes LM Ql (Bld)Ordere d By: Neida Underwood on 10-26-2023 Microcytes Ql (Bld) Slight [facility] Monocytes Auto (Bld) [#/Vol] Ordered By: Neida Underwood on 10-26-2023 Monocytes (Bld) [#/Vol] 0.4 10*3/uL 0.0-0.8 [facility] Monocytes/100 WBC Auto (Bld) Ordered By: Neida Underwood on 10-26-2023 Monocytes/100 WBC (Bld) 6.9 % . [facility] Neutrophils Auto (Bld) [#/Vo l]Ordered By: Neida Underwood on 10-26-2023 Neutrophils (Bld) [#/Vol] 4.7 10*3/uL 1.8-7.7 [facility] Neutrophils/100 WBC Auto (Bl d)Ordered By: Neida Underwood on 10-26-2023 Neutrophils/100 WBC (Bld) 82.9 % . [facility] No Panel InformationOrdered By: Derek Hardy on 10-26-2023 Estimated GFR (CKD-EPI) > 60.0 mL/Min [facility] Creatinine Clearance (Chem 40.82 [facility] Nucleated erythrocytes [Pres ence] in Blood by Automated countOrdered By: Neida Underwood on 10-26-2023 Nucleated RBC Auto Ql (Bld) 0.0 /100{WBC} 0-0.5 [facility] Ovalocyte detectionOrdered B y: Neida Underwood on 10-26-2023 Ovalocytes LM Ql (Bld) Slight [facility] Platelet adequacy [Presence] in Blood by Light microscopyOrdered By: Neida Underwood on 10-26-2023 Platelets LM Ql (Bld) Increased Normal [facility] Platelet mean volume Auto (B ld) [Entitic vol]Ordered By: Neida Underwood on 10-26-2023 Platelet mean volume (Bld) [Entitic vol] 8.2 fL 6.3-10.7 [facility] Platelet morphology finding [Identifier] in BloodOrdered By: Neida Underwood on 10-26-2023 Platelet morphology finding Nom (Bld) Normal Normal [facility] Platelets Auto (Bld) [#/Vol] Ordered By: Neida Underwood on 10-26-2023 Platelets (Bld) [#/Vol] 488 10*3/uL 150-450 [facility] Poikilocytosis [Presence] in Blood by Light microscopyOrdered By: Neida Underwood on 10-26-2023 Poikilocytosis LM Ql (Bld) Slight [facility] Polychromasia [Presence] in Blood by Light microscopyOrdered By: Neida Underwood on 10-26-2023 Polychromasia LM Ql (Bld) Slight [facility] Potassium [Moles/volume] in Serum or PlasmaOrdered By: Derek Hardy on 10-26-2023 Potassium [Moles/Vol] 3.7 mmol/L 3.5-5.1 [facility] RBC Auto (Bld) [#/Vol]Ordere d By: Neida Underwood on 10-26-2023 RBC (Bld) [#/Vol] 5.12 10*6/uL 3.60-5.00 [facility] RBC morphologyOrdered By: Boubacar Underwood on 10-26-2023 RBC morphology finding Nom (Bld) N/A [facility] Scan and CBCon 10-26-2023 Anisocytosis Ql (Bld) Slight Normal [facility] Comment on above: Performed By: #### S CAN CBC ####[address] Basophils (Bld) [#/Vol] 0.0 10*3/uL Normal 0.0-0.2 [facility] Comment on above: Performed By: #### S CAN CBC ####[address] Basophils/100 WBC (Bld) 0.6 % Normal . [facility] Comment on above: Performed By: #### S CAN CBC ####[address] Crenated RBC Slight Normal [facility] Comment on above: Performed By: #### S CAN CBC ####[address] Eosinophils (Bld) [#/Vol] 0.0 10*3/uL Normal 0.0-0.45 [facility] Comment on above: Performed By: #### S CAN CBC ####[address] Eosinophils/100 WBC (Bld) 0.8 % Normal . [facility] Comment on above: Performed By: #### S CAN CBC ####[address] Erythrocyte distribution width (RBC) [Ratio] 18.5 % High 11.9-15.3 [facility] Comment on above: Performed By: #### S CAN CBC ####[address] Hematocrit (Bld) [Volume fraction] 38.4 % Normal 34.0-46.4 [facility] Comment on above: Performed By: #### S CAN CBC ####[address] Hemoglobin (Bld) [Mass/Vol] 12.2 g/dL Normal 11.8-15.4 [facility] Comment on above: Performed By: #### S CAN CBC ####[address] Hypochromasia Slight Normal [facility] Comment on above: Performed By: #### S CAN CBC ####[address] Lymphocytes (Bld) [#/Vol] 0.5 10*3/uL Low 1.00-4.8 [facility] Comment on above: Performed By: #### S CAN CBC ####[address] Lymphocytes/100 WBC (Bld) 8.8 % Normal . [facility] Comment on above: Performed By: #### S CAN CBC ####[address] Macrocytosis Slight Normal [facility] Comment on above: Performed By: #### S CAN CBC ####[address] MCH (RBC) [Entitic mass] 23.8 pg Low 24.7-34.3 [facility] Comment on above: Performed By: #### S CAN CBC ####[address] MCV (RBC) [Entitic vol] 75.0 fL Low 80-100 [facility] Comment on above: Performed By: #### S CAN CBC ####[address] Mean Corpuscular HGB Conc 31.7 g/dL Low 32.0-35.0 [facility] Comment on above: Performed By: #### S CAN CBC ####[address] Microcytosis Slight Normal [facility] Comment on above: Performed By: #### S CAN CBC ####[place] [id number] [place] Monocytes (Bld) [#/Vol] 0.4 10*3/uL Normal 0.0-0.8 [facility] Comment on above: Performed By: #### S CAN CBC ####[place] [id number] [place] Monocytes/100 WBC (Bld) 6.9 % Normal . [facility] Comment on above: Performed By: #### S CAN CBC ####[address] Neutrophils (Bld) [#/Vol] 4.7 10*3/uL Normal 1.8-7.7 [facility] Comment on above: Performed By: #### S CAN CBC ####[address] Neutrophils/100 WBC (Bld) 82.9 % Normal . [facility] Comment on above: Performed By: #### S CAN CBC ####[address] NRBC% 0.0 /100{WBC} Normal 0-0.5 [facility] Comment on above: Performed By: #### S CAN CBC ####[address] Ovalocytes Slight Normal [facility] Comment on above: Performed By: #### S CAN CBC ####[place] [id number] [place] Platelet Estimate Increased Normal Normal [facility] Comment on above: Performed By: #### S CAN CBC ####[place] [id number] [place] Platelet mean volume (Bld) [Entitic vol] 8.2 fL Normal 6.3-10.7 [facility] Comment on above: Performed By: #### S CAN CBC ####[place] [id number] [place] Platelet Morphology Normal Normal Normal [facility] Comment on above: Result Comment: PERF ORMED BY: [facility] [address] [place] [address] PATHOLOGIST [employer] AYAAN PARISI M.D. Performed By: #### S CAN CBC ####[address] Platelets (Bld) [#/Vol] 488 10*3/uL High 150-450 [facility] Comment on above: Performed By: #### S CAN CBC ####[address] Poikilocytosis Slight Normal [facility] Comment on above: Performed By: #### S CAN CBC ####[address] Polychromasia Slight Normal [facility] Comment on above: Performed By: #### S CAN CBC ####[address] RBC (Bld) [#/Vol] 5.12 10*6/uL High 3.60-5.00 [facility] Comment on above: Performed By: #### S CAN CBC ####[address] Target Cells Slight Normal [facility] Comment on above: Performed By: #### S CAN CBC ####[address] WBC (Bld) [#/Vol] 5.6 10*3/uL Normal 3.8-11.6 [facility] Comment on above: Performed By: #### S CAN CBC ####[address] Serum or plasma anion gap de terminationOrdered By: Derek Hardy on 10-26-2023 Anion gap [Moles/Vol] 13.1 mmol/L 6.0-15.0 [facility] Sodium [Moles/volume] in Ser um or PlasmaOrdered By: Derek Hardy on 10-26-2023 Sodium [Moles/Vol] 135 mmol/L 136-145 [facility] Target cellsOrdered By: Humza Underwood on 10-26-2023 Target cells LM Ql (Bld) Slight [facility] Transferrin [Mass/volume] in Serum or PlasmaOrdered By: Derek Hardy on 10-26-2023 Transferrin [Mass/Vol] 226 mg/dL 203-362 [facility] Urea nitrogen [Mass/volume] in Serum or PlasmaOrdered By: Derek Hardy on 10-26-2023 Urea nitrogen [Mass/Vol] 10 mg/dL 7-25 [facility] WBC Auto (Bld) [#/Vol]Ordere d By: Neida Underwood on 10-26-2023 WBC (Bld) [#/Vol] 5.6 10*3/uL 3.8-11.6 [facility] Activated partial thrombopla stin time (aPTT) in platelet poor plasma by coagulation aOrdered By: Neida Underwood on 10-25-2023 aPTT Coag (PPP) [Time] 72.6 s 25.1-36.5 [facility] Comment on above: A hematocrit value g reater than 55% may lead to inaccurate results in coagulation testing. Patients having hematocrit values >55% require a special collection tube for coagulation studies. Please contact the laboratory at [phone] for redraw instructions. Basic Metabolic Panelon 10-11 Anion gap [Moles/Vol] 9.2 mmol/L Normal 6.0-15.0 [facility] Comment on above: Performed By: #### B MP ####[place] [id number] [place] [id number] [place] Calcium [Mass/Vol] 8.8 mg/dL Normal 8.6-10.3 [facility] Comment on above: Performed By: #### B MP ####[place] [id number] [place] [id number] [place] Chloride [Moles/Vol] 104 mmol/L Normal 98-107 [facility] Comment on above: Performed By: #### B MP ####[place] [id number] [place] CO2 [Moles/Vol] 26.8 mmol/L Normal 21.0-31.0 [facility] Comment on above: Performed By: #### B MP ####[place] [id number] [place] Creatinine [Mass/Vol] 0.53 mg/dL Low 0.60-1.20 [facility] Comment on above: Performed By: #### B MP ####[place] [id number] [place] Creatinine Clr Calc Pharmacy 40.82 Normal [facility] Comment on above: Result Comment: PERF ORMED BY: [facility] [address] [facility] [place] [id number] PATHOLOGIST [employer]CH[employer] AYAAN PARISI M.D. Performed By: #### B MP ####[address] GFR/1.73 sq M.predicted MDRD (S/P/Bld) [Vol rate/Area] mL/min/{1.73_m2} Normal [facility] Comment on above: Performed By: #### B MP ####[place] [id number] [place] Glucose [Mass/Vol] 85 mg/dL Normal 70-100 [facility] Comment on above: Result Comment: [facility] Glucose Reference Range is dependent on time and content of last meal. Glucose of more than 200 mg/dL in a nonstressed, ambulatory subject supports the diagnosis of Diabetes Mellitus. ADA recommended reference range Performed By: #### B MP ####[place] [id number] [place] Potassium [Moles/Vol] 4.0 mmol/L Normal 3.5-5.1 [facility] Comment on above: Performed By: #### B MP ####[place] [id number] [place] Sodium [Moles/Vol] 136 mmol/L Normal 136-145 [facility] Comment on above: Performed By: #### B MP ####[place] [id number] [place] Urea nitrogen [Mass/Vol] 16 mg/dL Normal 7-25 [facility] Comment on above: Performed By: #### B MP ####[facility] Anion gap [Moles/Vol] 9.4 mmol/L Normal 6.0-15.0 [facility] Comment on above: Performed By: #### B MP, PATH SLIDE REV, PT, PTT, DIFF CBC #### [address] Calcium [Mass/Vol] 9.1 mg/dL Normal 8.6-10.3 [facility] Comment on above: Performed By: #### B MP, PATH SLIDE REV, PT, PTT, DIFF CBC #### [address] Chloride [Moles/Vol] 102 mmol/L Normal 98-107 [facility] Comment on above: Performed By: #### B MP, PATH SLIDE REV, PT, PTT, DIFF CBC #### [address] CO2 [Moles/Vol] 28.9 mmol/L Normal 21.0-31.0 [facility] Comment on above: Performed By: #### B MP, PATH SLIDE REV, PT, PTT, DIFF CBC #### [address] Creatinine [Mass/Vol] 0.71 mg/dL Normal 0.60-1.20 [facility] Comment on above: Performed By: #### B MP, PATH SLIDE REV, PT, PTT, DIFF CBC #### [address] Creatinine Clr Calc Pharmacy 40.82 Normal [facility] Comment on above: Result Comment: PERF ORMED BY: [place] [address] PATHOLOGIST [employer]CHN[employer]IAN AYAAN PARISI M.D. Performed By: #### B MP, PATH SLIDE REV, PT, PTT, DIFF CBC #### [address] [place] [address] [place] GFR/1.73 sq M.predicted MDRD (S/P/Bld) [Vol rate/Area] mL/min/{1.73_m2} Normal [facility] Comment on above: Performed By: #### B MP, PATH SLIDE REV, PT, PTT, DIFF CBC #### [address] Glucose [Mass/Vol] 106 mg/dL High 70-100 [facility] Comment on above: Result Comment: [facility] Glucose Reference Range is dependent on time and content of last meal. Glucose of more than 200 mg/dL in a nonstressed, ambulatory subject supports the diagnosis of Diabetes Mellitus. ADA recommended reference range Performed By: #### B MP, PATH SLIDE REV, PT, PTT, DIFF CBC #### [address] Potassium [Moles/Vol] 4.3 mmol/L Normal 3.5-5.1 [facility] Comment on above: Performed By: #### B MP, PATH SLIDE REV, PT, PTT, DIFF CBC #### [place] [address] [place] Sodium [Moles/Vol] 136 mmol/L Normal 136-145 [facility] Comment on above: Performed By: #### B MP, PATH SLIDE REV, PT, PTT, DIFF CBC #### [place] [address] [place] Urea nitrogen [Mass/Vol] 15 mg/dL Normal 7-25 [facility] Comment on above: Performed By: #### B MP, PATH SLIDE REV, PT, PTT, DIFF CBC #### [place] [address] [place] Basophils/100 WBC Manual cnt (Bld)Ordered By: Neida Underwood on 10-25-2023 Basophils/100 WBC (Bld) 1 % 0-2 [facility] Diff and CBCon 10-25-2023 Anisocytosis Ql (Bld) Moderate Normal [facility] Comment on above: Performed By: #### B MP, PATH SLIDE REV, PT, PTT, DIFF CBC #### [address] Basophils/100 WBC (Bld) 1 % Normal 0-2 [facility] Comment on above: Performed By: #### B MP, PATH SLIDE REV, PT, PTT, DIFF CBC #### [address] Crenated RBC Slight Normal [facility] Comment on above: Performed By: #### B MP, PATH SLIDE REV, PT, PTT, DIFF CBC #### [address] Eosinophils/100 WBC (Bld) 1 % Normal 1-3 [facility] Comment on above: Performed By: #### B MP, PATH SLIDE REV, PT, PTT, DIFF CBC #### [address] Erythrocyte distribution width (RBC) [Ratio] 18.3 % High 11.9-15.3 [facility] Comment on above: Performed By: #### B MP, PATH SLIDE REV, PT, PTT, DIFF CBC #### [address] Giant Platelet Tally 6 /100{WBC} Normal [facility] Comment on above: Performed By: #### B MP, PATH SLIDE REV, PT, PTT, DIFF CBC #### [address] Hematocrit (Bld) [Volume fraction] 38.6 % Normal 34.0-46.4 [facility] Comment on above: Performed By: #### B MP, PATH SLIDE REV, PT, PTT, DIFF CBC #### [address] Hemoglobin (Bld) [Mass/Vol] 12.3 g/dL Normal 11.8-15.4 [facility] Comment on above: Performed By: #### B MP, PATH SLIDE REV, PT, PTT, DIFF CBC #### [address] Hypochromasia Moderate Normal [facility] Comment on above: Performed By: #### B MP, PATH SLIDE REV, PT, PTT, DIFF CBC #### [address] Large Platelets Slight Normal [facility] Comment on above: Result Comment: PERF ORMED BY: [place] [address] PATHOLOGIST [employer]CHNICIAN AYAAN PARISI M.D. Performed By: #### B MP, PATH SLIDE REV, PT, PTT, DIFF CBC #### [address] Lymphocytes/100 WBC (Bld) 7 % Low 18-42 [facility] Comment on above: Performed By: #### B MP, PATH SLIDE REV, PT, PTT, DIFF CBC #### [address] Macrocytosis Slight Normal [facility] Comment on above: Performed By: #### B MP, PATH SLIDE REV, PT, PTT, DIFF CBC #### [address] MCH (RBC) [Entitic mass] 23.7 pg Low 24.7-34.3 [facility] Comment on above: Performed By: #### B MP, PATH SLIDE REV, PT, PTT, DIFF CBC #### [address] MCV (RBC) [Entitic vol] 74.2 fL Low 80-100 [facility] Comment on above: Performed By: #### B MP, PATH SLIDE REV, PT, PTT, DIFF CBC #### [address] Mean Corpuscular HGB Conc 31.9 g/dL Low 32.0-35.0 [facility] Comment on above: Performed By: #### B MP, PATH SLIDE REV, PT, PTT, DIFF CBC #### [address] Microcytosis Slight Normal [facility] Comment on above: Performed By: #### B MP, PATH SLIDE REV, PT, PTT, DIFF CBC #### [address] Monocytes/100 WBC (Bld) 4 % Normal 2-11 [facility] Comment on above: Performed By: #### B MP, PATH SLIDE REV, PT, PTT, DIFF CBC #### [address] Ovalocytes Moderate Normal [facility] Comment on above: Performed By: #### B MP, PATH SLIDE REV, PT, PTT, DIFF CBC #### [address] Platelet Estimate Increased Normal Normal [facility] Comment on above: Performed By: #### B MP, PATH SLIDE REV, PT, PTT, DIFF CBC #### [address] Platelet mean volume (Bld) [Entitic vol] 8.0 fL Normal 6.3-10.7 [facility] Comment on above: Performed By: #### B MP, PATH SLIDE REV, PT, PTT, DIFF CBC #### [address] Platelets (Bld) [#/Vol] 536 10*3/uL High 150-450 [facility] Comment on above: Performed By: #### B MP, PATH SLIDE REV, PT, PTT, DIFF CBC #### [address] Poikilocytosis Slight Normal [facility] Comment on above: Performed By: #### B MP, PATH SLIDE REV, PT, PTT, DIFF CBC #### [address] RBC (Bld) [#/Vol] 5.20 10*6/uL High 3.60-5.00 [facility] Comment on above: Performed By: #### B MP, PATH SLIDE REV, PT, PTT, DIFF CBC #### [address] Segmented neutrophils/100 WBC (Bld) 88 % High 50-70 [facility] Comment on above: Performed By: #### B MP, PATH SLIDE REV, PT, PTT, DIFF CBC #### [facility] [address] Spherocytes Slight Normal [facility] Comment on above: Performed By: #### B MP, PATH SLIDE REV, PT, PTT, DIFF CBC #### [facility] [address] [place] [address] [place] Stomatocytes Slight Normal [facility] Comment on above: Performed By: #### B MP, PATH SLIDE REV, PT, PTT, DIFF CBC #### [facility] [address] Target Cells Slight Normal [facility] Comment on above: Performed By: #### B MP, PATH SLIDE REV, PT, PTT, DIFF CBC #### [place] [address] [place] WBC (Bld) [#/Vol] 5.0 10*3/uL Normal 3.8-11.6 [facility] Comment on above: Performed By: #### B MP, PATH SLIDE REV, PT, PTT, DIFF CBC #### [address] Eosinophils/100 WBC Manual c nt (Bld)Ordered By: Neida Underwood on 10-25-2023 Eosinophils/100 WBC (Bld) 1 % 1-3 [facility] Giant platelets/100 leukocyt es [Ratio] in Blood by Manual countOrdered By: Neida Underwood on 10-25-2023 Giant platelets/100 WBC Manual cnt (Bld) [Ratio] 6 /100{WBC} [facility] INR in Platelet poor plasma by Coagulation assayOrdered By: Neida Underwood on 10-25-2023 INR Coag (PPP) [Relative time] 1.1 {INR} [facility] Comment on above: INR Therapeutic Rang e A) Pre- and Peroperative OAT started two weeks before surgery. NOT HIP SURGERY: 1.5 - 2.5 HIP SURGERY: 2 - 3B) Primary and secondary prevention of venous THROMBOSIS: 2 - 3C) Active venous thrombosis, pulmonary embolismand prevention of recurrent venous thrombosis: 2 - 3D) Prevention of arterial thromboembolismincluding patients with mechanical heart valves: 3 - 4.5 [facility] 10-25-2023 L ------ Specimen: [id number] Received: 10/25/23 Status: KENJI Panchal Num: [id number] Spec Type: Impression Subm Dr: Nydia Chavis MD Tissues: PATHPER Procedures: PATHREVIEW Age/ Patient Sex Location Account Attending Physician Garett Nieto I 83/F 4N [id number] Derek Hardy MD SPEC NUM: [id number] RECD: 10/25/23 STATUS: KENJI PANCHAL NUM: [id number] STEW: 10/25/23- SUBM DR: Nydia Chavis MD ENTERED: 10/25/23-[address] [facility] [address]: Zeenat Saenz MD SPEC TYPE: Impression DEPT: [place] ENTERED BY: [id number] RECV BY: [id number] ORDERED: PATHREVIEW ORDERED: PATHREVIEW Pathologist Review Abnormal CBC for peripheral blood smear review: - Borderline anemia of mild microcytic type, including moderate anisocytosis with few ovalocytes, mild hypochromia, and mild microcytosis - Incidental relative or compensatory erythrocytosis - Mild reactive thrombocytosis - Mild lymphocytopenia. Comment -The mild hypochromia and microcytosis in the elderly female patient is most compatible with background mild chronic iron deficiency, requiring correlation with studies of serum iron profile if indicated. Reactive thrombocytosis also can be caused by iron deficiency in general and probably also in this case of note. CPT: 61072 CBC Date Time Test Result Flag (u) Normal Range 10/25/23 0040 Seg 88 H 50-70 % Lymph 7 L 18-42 % Izard 4 2-11 % Eos 1 1-3 % Specimen: [id number] Received: 10/25/23 Status: KENJI Ansley Num: [id number] Spec Type: Impression Subm Dr: Nydia Chavis MD Tissues: PATHPER Procedures: PATHREVIEW Patient: MaximGarett I [id number] (Continued) Specimen: [id number] Received: 10/25/23 (Continued) DEDE (Continued) Signed (signature on file) Hank Lowery MD 10/25/23 0945 Specimen: [id number] Received: 10/25/23 Status: KENJI Panchal Num: [id number] Spec Type: Impression Subm Dr: Nydia Chavis MD Tissues: PATHPER Procedures: PATHREVIEW Patient: Garett Nieto I [id number] (Continued) Specimen: [id number] Received: 12/15/23-0129 (Continued) CBC (Continued) Baso 1 0-2 % Sphero Slight Stomato Slight Gt Plt 6 /100 WBC 0516 WBC 4.5 3.8-11.6 X10E3/uL RBC 5.06 H 3.60-5.00 X10E6/uL HGB 12.0 11.8-15.4 g/dL HCT 37.8 34.0-46.4 % MCV 74.7 L 80-100 fl MCH 23.6 L 24.7-34.3 pg MCHC 31.6 L 32.0-35.0 g/dL RDW 17.9 H 11.9-15.3 % Plt 482 H 150-450 x10E3/uL MPV 8.0 6.3-10.7 fl Neut % (Auto) 70.2 . % Lymp % (Auto) 18.6 . % Izard % (Auto) 9.0 . % Eos % (Auto) 1.1 . % Baso % (Auto) 1.1 . % NRBC% 0.1 0-0.5 /100 WBC Neut # (Auto) 3.2 1.8-7.7 x10E3/uL Lymph # (Auto) 0.8 L 1.00-4.8 x10E3/uL Izard # (Auto) 0.4 0.0-0.8 x10E3/uL Eos # (Auto) 0.0 0.0-0.45 x10E3/uL Baso# (Auto) 0.0 0.0-0.2 x10E3/uL Hypochrom Moderate Poik Slight Aniso Slight Micro Slight Macro Slight Target Slight Oval Slight Crenated RBC Slight Plt Est Increased Normal Lg Plt Slight Specimen: [id number] Received: 10/25/23 Status: KENJI Panchal Num: [id number] Spec Type: Impression Subm Dr: Nydia Chavis MD Tissues: PATHPER Procedures: PATHREVIEW Patient: Garett Nieto I [id number] (Continued) Signed (signature on file) Hank Lowery MD 10/25/23 0945 Normal [facility] Lymphocytes/100 WBC Manual c nt (Bld)Ordered By: Neida Underwood on 10-25-2023 Lymphocytes/100 WBC (Bld) 7 % 18-42 [facility] Monocytes/100 WBC Manual cnt (Bld)Ordered By: Neida Underwood on 10-25-2023 Monocytes/100 WBC (Bld) 4 % 2-11 [facility] No Panel InformationOrdered By: Neida Underwood on 10-25-2023 Slides for Pathologist Review Ordered path review [facility] Partial Thromboplastin Timeo n 10-25-2023 aPTT Coag (Bld) [Time] 72.6 s High 25.1-36.5 Th e [facility] Comment on above: Order Comment: List the anticoagulant: HEPARIN/COUMADIN Result Comment: A he matocrit value greater than 55% may lead to inaccurate results in coagulation testing. Patients having hematocrit values >55% require a special collection tube for coagulation studies. Please contact the laboratory at [phone] for redraw instructions. PERFORMED BY: [place] [address] PATHOLOGIST [employer] PLANT TECHNICIAN AYAAN PARISI M.D. Performed By: #### P TT #### [facility] [address] [place] [address] aPTT Coag (Bld) [Time] 44.6 s High 25.1-36.5 e [facility] Comment on above: Result Comment: A he matocrit value greater than 55% may lead to inaccurate results in coagulation testing. Patients having hematocrit values >55% require a special collection tube for coagulation studies. Please contact the laboratory at [phone] for redraw instructions. PERFORMED BY: [place] [address] PATHOLOGIST [employer] TECHNICIAN AYAAN PARISI M.D. Performed By: #### B MP, PATH SLIDE REV, PT, PTT, DIFF CBC #### [facility] [address] [place], [place] [id number] [place] Pathologist Slide Reviewon 1 12-26-2022 Pathologist Slide Review Ordered Path Review Normal [facility] Comment on above: Result Comment: PERF ORMED BY: [place] [address] PATHOLOGIST [employer] PL[employer] TECHNICIAN AYAAN PARISI M.D. Performed By: #### B MP, PATH SLIDE REV, PT, PTT, DIFF CBC ####[address] Platelets Large [Presence] i n Blood by Light microscopyOrdered By: Neida Underwood on 10-25-2023 Platelets Large LM Ql (Bld) Slight [facility] Prothrombin Time INRon 10-25 INR Coag (PPP) [Relative time] 1.1 {INR} Normal [facility] Comment on above: Result Comment: INR Therapeutic Range A) Pre- and Peroperative OAT started two weeks before surgery. NOT HIP SURGERY: 1.5 - 2.5 HIP SURGERY: 2 - 3 B) Primary and secondary prevention of venous THROMBOSIS: 2 - 3 C) Active venous thrombosis, pulmonary embolism and prevention of recurrent venous thrombosis: 2 - 3 D) Prevention of arterial thromboembolism including patients with mechanical heart valves: 3 - 4.5 PERFORMED BY: [facility] [address] [place] [address] PATHOLOGIST [employer] TECHNICIAN AYAAN PARISI M.D. Performed By: #### S CAN CBC, PT ####[facility] [place] [address] [place] PT Coag (PPP) [Time] 12.7 s Normal 9.0-12.9 [facility] Comment on above: Result Comment: A he matocrit value greater than 55% may lead to inaccurate results in coagulation testing. Patients having hematocrit values >55% require a special collection tube for coagulation studies. Please contact the laboratory at [phone] for redraw instructions. Performed By: #### S CAN CBC, PT ####[facility] [place] [address] [place] INR Coag (PPP) [Relative time] 1.0 {INR} Normal [facility] Comment on above: Result Comment: INR Therapeutic Range A) Pre- and Peroperative OAT started two weeks before surgery. NOT HIP SURGERY: 1.5 - 2.5 HIP SURGERY: 2 - 3 B) Primary and secondary prevention of venous THROMBOSIS: 2 - 3 C) Active venous thrombosis, pulmonary embolism and prevention of recurrent venous thrombosis: 2 - 3 D) Prevention of arterial thromboembolism including patients with mechanical heart valves: 3 - 4.5 Performed By: #### B MP, PATH SLIDE REV, PT, PTT, DIFF CBC #### [facility] [address] [place] [address] R[place] PT Coag (PPP) [Time] 12.1 s Normal 9.0-12.9 [facility] Comment on above: Result Comment: A he matocrit value greater than 55% may lead to inaccurate results in coagulation testing. Patients having hematocrit values >55% require a special collection tube for coagulation studies. Please contact the laboratory at [phone] for redraw instructions. Performed By: #### B MP, PATH SLIDE REV, PT, PTT, DIFF CBC #### [facility] [address] Prothrombin time (PT)Ordered By: Neida Underwood on 10-25-2023 PT Coag (PPP) [Time] 12.7 s 9.0-12.9 [facility] Comment on above: A hematocrit value g reater than 55% may lead to inaccurate results in coagulation testing. Patients having hematocrit values >55% require a special collection tube for coagulation studies. Please contact the laboratory at [phone] for redraw instructions. Red blood cell stomatocyte d etectionOrdered By: Neida Underwood on 10-25-2023 Stomatocytes LM Ql (Bld) Slight [facility] Scan and CBCon 10-25-2023 Anisocytosis Ql (Bld) Slight Normal [facility] Comment on above: Performed By: #### S CAN CBC, PT ####[place] [id number] [address] Basophils (Bld) [#/Vol] 0.0 10*3/uL Normal 0.0-0.2 [facility] Comment on above: Performed By: #### S CAN CBC, PT ####[address] Basophils/100 WBC (Bld) 1.1 % Normal . [facility] Comment on above: Performed By: #### S CAN CBC, PT ####[place] [address] [address] Crenated RBC Slight Normal [facility] Comment on above: Performed By: #### S CAN CBC, PT ####[address] Eosinophils (Bld) [#/Vol] 0.0 10*3/uL Normal 0.0-0.45 [facility] Comment on above: Performed By: #### S CAN CBC, PT ####[address] Eosinophils/100 WBC (Bld) 1.1 % Normal . [facility] Comment on above: Performed By: #### S CAN CBC, PT ####[address] Erythrocyte distribution width (RBC) [Ratio] 17.9 % High 11.9-15.3 [facility] Comment on above: Performed By: #### S CAN CBC, PT ####[address] Hematocrit (Bld) [Volume fraction] 37.8 % Normal 34.0-46.4 [facility] Comment on above: Performed By: #### S CAN CBC, PT ####[address] Hemoglobin (Bld) [Mass/Vol] 12.0 g/dL Normal 11.8-15.4 [facility] Comment on above: Performed By: #### S CAN CBC, PT ####[address] Hypochromasia Moderate Normal [facility] Comment on above: Performed By: #### S CAN CBC, PT ####[address] Large Platelets Slight Normal [facility] Comment on above: Result Comment: PERF ORMED BY: [facility] [address] [place] [address] PATHOLOGIST [employer] TECHNICIAN AYAAN PARISI M.D. Performed By: #### S CAN CBC, PT ####[address] Lymphocytes (Bld) [#/Vol] 0.8 10*3/uL Low 1.00-4.8 [facility] Comment on above: Performed By: #### S CAN CBC, PT ####[address] Lymphocytes/100 WBC (Bld) 18.6 % Normal . [facility] Comment on above: Performed By: #### S CAN CBC, PT ####[address] Macrocytosis Slight Normal [facility] Comment on above: Performed By: #### S CAN CBC, PT ####[address] MCH (RBC) [Entitic mass] 23.6 pg Low 24.7-34.3 [facility] Comment on above: Performed By: #### S CAN CBC, PT ####[address] MCV (RBC) [Entitic vol] 74.7 fL Low 80-100 [facility] Comment on above: Performed By: #### S CAN CBC, PT ####[address] Mean Corpuscular HGB Conc 31.6 g/dL Low 32.0-35.0 [facility] Comment on above: Performed By: #### S CAN CBC, PT ####[address] Microcytosis Slight Normal [facility] Comment on above: Performed By: #### S CAN CBC, PT ####[address] Monocytes (Bld) [#/Vol] 0.4 10*3/uL Normal 0.0-0.8 [facility] Comment on above: Performed By: #### S CAN CBC, PT ####[address] Monocytes/100 WBC (Bld) 9.0 % Normal . [facility] Comment on above: Performed By: #### S CAN CBC, PT ####[address] Neutrophils (Bld) [#/Vol] 3.2 10*3/uL Normal 1.8-7.7 [facility] Comment on above: Performed By: #### S CAN CBC, PT ####[address] Neutrophils/100 WBC (Bld) 70.2 % Normal . [facility] Comment on above: Performed By: #### S CAN CBC, PT ####[address] NRBC% 0.1 /100{WBC} Normal 0-0.5 [facility] Comment on above: Performed By: #### S CAN CBC, PT ####[address] Ovalocytes Slight Normal [facility] Comment on above: Performed By: #### S CAN CBC, PT ####[address] Platelet Estimate Increased Normal Normal [facility] Comment on above: Performed By: #### S CAN CBC, PT ####[address] Platelet mean volume (Bld) [Entitic vol] 8.0 fL Normal 6.3-10.7 [facility] Comment on above: Performed By: #### S CAN CBC, PT ####[place] [id number] [place] Platelets (Bld) [#/Vol] 482 10*3/uL High 150-450 [facility] Comment on above: Performed By: #### S CAN CBC, PT ####[address] Poikilocytosis Slight Normal [facility] Comment on above: Performed By: #### S CAN CBC, PT ####[address] RBC (Bld) [#/Vol] 5.06 10*6/uL High 3.60-5.00 [facility] Comment on above: Performed By: #### S CAN CBC, PT ####[address] Target Cells Slight Normal [facility] Comment on above: Performed By: #### S CAN CBC, PT ####[address] [place] [address] [place] WBC (Bld) [#/Vol] 4.5 10*3/uL Normal 3.8-11.6 [facility] Comment on above: Performed By: #### S CAN CBC, PT ####[facility] [id number] [place] [id number] [place] Segmented neutrophils/100 WB C Manual cnt (Bld)Ordered By: Neida Underwood on 10-25-2023 Segmented neutrophils/100 WBC (Bld) 88 % 50-70 [facility] Spherocytes [Presence] in Bl ood by Light microscopyOrdered By: Neida Underwood on 10-25-2023 Spherocytes LM Ql (Bld) Slight [facility] US ankle/arm indiceson 08-27 US ankle/arm indices [facility] Main [place] [address] [place], [place] [id number] Ultrasound Report Signed Patient: Garett Nieto I MR#: [id number] : 1940 Acct:[id number] Age/Sex: 83 / F ADM Date: 08/27/23 Loc: [facility] Room: Type: [facility] Attending Dr: Henry Benton MD Ordering Provider: Henry Benton MD Date of Service: 08/27/23 US/US ankle/arm indices: I70.212 Copies to: Henry Benton MD Left ankle-brachial indices Indication for study: Peripheral vascular occlusive disease status post left leg reconstruction PROCEDURE: Right arm blood pressure is 168 and the left arm blood pressure is 164 mmHg. At the left ankle the posterior tibial pressure is 68 giving an ankle-brachial index of 0.4. The dorsalis pedis pressure at the left ankle is 59 giving an ankle-brachial's of 0.35. Waveforms by plethysmography are blunted. This is a decline in the ankle-brachial index from the last study dated December 2022 which was normal US/US ankle/arm indices IMPRESSION: Severe peripheral vascular occlusive disease of the left lower extremity at rest. Its likely previous femoral-popliteal reconstruction is failed. Impression dictated by: Henry Benton M.D.08/27/2023 1:28 PM Dictation Location: [place] [address] Tech: Rhonda Worthy Transcribed By: TOREY 08/27/231327 Dictated By: Henry Benton MD 08/27/231326 Signed By: 08/27/231327 Normal [facility] PROF CHEM 8 (BAS METB)on Anion gap [Moles/Vol] 9.7 mmol/L Normal [facility] Comment on above: Performed By: #### B MP #### [facility] [address] [place] [address] Elfego Natasha Calcium [Mass/Vol] 10.1 mg/dL Normal 8.4-10.2 [facility] Comment on above: Performed By: #### B MP #### [facility] [address] [place] [address] [place] Natasha Chloride [Moles/Vol] 98 mmol/L Normal 98-107 [facility] Comment on above: Performed By: #### B MP #### [facility] [address] [place] [address] [place]fe[place] Natasha CO2 [Moles/Vol] 29.2 mmol/L Normal 22.0-30.0 [facility] Comment on above: Performed By: #### B MP #### [facility] [address] [place] [address] [place]fego Natasha Creatinine [Mass/Vol] 0.75 mg/dL Normal 0.52-1.04 [facility] Comment on above: Performed By: #### B MP #### [facility] [address] [place] [address] [place] EGFR-AF [place] CITIZ[place] >60 Normal >=60 [facility] Comment on above: Performed By: #### B MP #### [facility] [address] [place] [address] [place] Natasha EGFR-NON AF [place] CITIZ[place] >60 Normal >=60 [facility] Comment on above: Performed By: #### B MP #### [facility] [address] [place] [address] [place]fego Natasha Glucose [Mass/Vol] 93 mg/dL Normal 74-106 [facility] Comment on above: Performed By: #### B MP #### [facility] [address] [place] [address] Elfego Natasha Potassium [Moles/Vol] 4.9 mmol/L Normal 3.4-5.0 [facility] Comment on above: Performed By: #### B MP #### [facility] [address] [place] [id number] Elfego Natasha Sodium [Moles/Vol] 132 mmol/L Critically low 137-145 [facility] Comment on above: Performed By: #### B MP #### [facility] [address] [place] [id number] [place] Natasha Urea nitrogen [Mass/Vol] 18.0 mg/dL Critically high 7.0-17.0 [facility] Comment on above: Performed By: #### B MP #### [facility] [address] [place] [id number] [place] Natasha Urea nitrogen/Creatinine [Mass ratio] 24.0 mg/mg Normal [facility] Comment on above: Performed By: #### B MP #### [facility] [address] [place] [id number] [place] Natasha Provider Orderson 04-03-2019 Protein mass conc [id number] Normal [facility] Vital Signs Date Time Vital Sign Value Performing Clinician Facility 02-18-2024 11:50-0400 Body height 165.1 cm MD Zeenat Saenz Work Phone: [facility] 02-18-2024 11:50-0400 Body mass index (BMI) [Ratio] 16.9 kg/m2 MD Zeenat Saenz Work Phone: [facility] 02-18-2024 11:50-040 Body temperature 96.7 [degF] MD Zeenat Saenz Work Phone: [facility] 02-18-2024 11:50-040 Body weight 46.26 kg MD Zeenat Saenz Work Phone: [facility] 02-18-2024 11:50-0400 Diastolic blood pressure 62 mm[Hg] MD Zeenat Saenz Work Phone: [facility] 02-18-2024 11:50-0400 Systolic blood pressure 148 mm[Hg] MD Zeenat Saenz Work Phone: [facility] 12-19-2023 14:31-0500 Body temperature 97.3 [degF] Zeenat Saenz MD Work Phone: [facility] 12-19-2023 14:31-0500 Diastolic blood pressure 80 mm[Hg] Zeenat Saenz MD Work Phone: [facility] 12-19-2023 14:31-0500 Heart rate 80 /min Zeenat Saenz MD Work Phone: [facility] 12-19-2023 14:31-0500 Respiratory rate 16 /min Zeenat Saenz MD Work Phone: [facility] 12-19-2023 14:31-0500 Systolic blood pressure 110 mm[Hg] Zeenat Saenz MD Work Phone: [facility] 10-29-2023 16:45-0500 Body temperature 97.8 [degF] MD Zeenat Saenz Work Phone: [facility] 10-29-2023 16:45-0500 Diastolic blood pressure 70 mm[Hg] MD Zeenat Saenz Work Phone: [facility] 10-29-2023 16:45-0500 Heart rate 80 /min MD Zeenat Saenz Work Phone: [facility] 10-29-2023 16:45-0500 Respiratory rate 14 /min MD Zeenat Saenz Work Phone: [facility] 10-29-2023 16:45-0500 SaO2% (BldA) [Mass fraction] 95 % MD Zeenat Saenz Work Phone: [facility] 10-29-2023 16:45-0500 Systolic blood pressure 130 mm[Hg] MD Zeenat Saenz Work Phone: [facility] 10-29-2023 13:03-0500 Body height 167.64 cm MD Zeenat Saenz Work Phone: [facility] 10-29-2023 05:41-0500 Body weight 46.6 kg MD Zeenat Saenz Work Phone: [facility] 10-25-2023 19:23-0500 Inhaled oxygen flow rate 3 L/min MD Zeenat Saenz Work Phone: [facility] 08-27-2023 13:00-0400 Body height 165.1 cm Henry Benton Other [facility] Other 08-27-2023 13:00-0400 Body temperature 97.2 [degF] Henry Benton Other [facility] Other 08-27-2023 13:00-0400 Diastolic blood pressure 72 mm[Hg] Henry Benton Other [facility] Other 08-27-2023 13:00-0400 Respiratory rate 18 /min Henry Benton Other [facility] Other 08-27-2023 13:00-0400 SaO2% (BldA) [Mass fraction] 99 % Henry Benton Other [facility] Other 08-27-2023 13:00-0400 Systolic blood pressure 124 mm[Hg] Henry Randolphrer Other [facility] Other 12-13-2022 09:30-0500 Body height 165.1 cm Kaylene Miller Other [facility] Other 12-13-2022 09:30-0500 Body mass index (BMI) [Ratio] 21.63 kg/m2 Kaylene Peterso Other [facility] Other 12-13-2022 09:30-0500 Body temperature 97.8 [degF] Kaylene Peterso Other [facility] Other 12-13-2022 09:30-0500 Body weight 58.97 kg Kaylene Peterso Other [facility] Other 12-13-2022 09:30-0500 Diastolic blood pressure 60 mm[Hg] Kaylene Peterso Other [facility] Other 12-13-2022 09:30-0500 Respiratory rate 61 /min Kaylene Peterso Other [facility] Other 12-13-2022 09:30-0500 SaO2% (BldA) [Mass fraction] 99 % Kaylene Peterso Other [facility] Other 12-13-2022 09:30-0500 Systolic blood pressure 130 mm[Hg] Kaylene Hoffmanricho Other [facility] Other 12-03-2022 12:15-0500 Body height 165.1 cm Kaylene Peterso Other [facility] Other 12-03-2022 12:15-0500 Body mass index (BMI) [Ratio] 21.63 kg/m2 Kaylene Peterso Other [facility] Other 12-03-2022 12:15-0500 Body temperature 97.2 [degF] Kaylene Hoffmanricho Other [facility] Other 12-03-2022 12:15-0500 Body weight 58.97 kg Kaylene Miller Other [facility] Other 12-03-2022 12:15-0500 Diastolic blood pressure 78 mm[Hg] Kaylene Peterso Other [facility] Other 12-03-2022 12:15-0500 Systolic blood pressure 126 mm[Hg] Kaylene Peterso Other [facility] Other 07-24-2022 12:30-0400 Body height 165.1 cm Kaylene Miller Other [facility] Other 07-24-2022 12:30-0400 Body mass index (BMI) [Ratio] 26.12 kg/m2 Kaylene Miller Other [facility] Other 07-24-2022 12:30-0400 Body temperature 98 [degF] Kaylene Miller Other [facility] Other 07-24-2022 12:30-0400 Body weight 71.22 kg Kaylene Miller Other [facility] Other 07-24-2022 12:30-0400 Diastolic blood pressure 86 mm[Hg] Kaylene Peterso Other [facility] Other 07-24-2022 12:30-0400 SaO2% (BldA) [Mass fraction] 95 % Kaylene Peterso Other [facility] Other 07-24-2022 12:30-0400 Systolic blood pressure 146 mm[Hg] Kaylene Miller Other [facility] Other 04-16-2022 12:30-0400 Body height 165.1 cm Henry Gillisr Other [facility] Other 04-16-2022 12:30-0400 Body temperature 97.8 [degF] Henry Buehrer Other [facility] Other 04-16-2022 12:30-0400 Diastolic blood pressure 72 mm[Hg] Henry Buehrer Other [facility] Other 04-16-2022 12:30-0400 Systolic blood pressure 136 mm[Hg] Henry Buehrer Other [facility] Other Encounters Encounter Date Encounter Type Care Provider Facility Start: 06-18-2024 ambulatory [facility] Facility: [facility] Start: 06-16-2024 End: 06-17-2024 ambulatory [facility] Facility:CD:[id number] Start: 06-05-2024 End: 06-06-2024 Emergency department patient visit OLE SHUKLA [facility] Start: 05-21-2024 End: 05-21-2024 ambulatory [facility] Start: 05-10-2024 End: 05-14-2024 Emergency department patient visit RHONDA TURPIN [facility] Start: 05-10-2024 End: 05-13-2024 Evaluation and management of inpatient [facility] Start: 04-10-2024 End: 04-10-2024 ambulatory [facility] Start: 03-24-2024 End: 03-24-2024 ambulatory [facility] Start: 03-20-2024 End: 03-20-2024 ambulatory [facility] Start: 02-18-2024 End: 02-18-2024 [facility] Start: 02-18-2024 End: 02-18-2024 ambulatory MD Zeenat Saenz Work Phone: [facility] Work Phone: Start: 02-18-2024 End: 02-18-2024 Patient encounter procedure MD Zeenat Saenz Work Phone: [facility] Work Phone: Start: 02-17-2024 End: 02-17-2024 ambulatory [facility] Start: 02-14-2024 Telephone encounter Debi khanna RN [facility] Start: 01-30-2024 Telephone encounter Debi khanna RN Work Phone: [facility] Start: 01-28-2024 Telephone encounter Leonora Gallardo [facility] Start: 01-27-2024 Orders Only Zeenat peña MD [facility] Start: 01-23-2024 End: 01-23-2024 ambulatory [facility] Start: 01-20-2024 Telephone encounter Radha Denis [facility] Start: 01-17-2024 Orders Only Zeenat peña MD [facility] Start: 01-15-2024 [facility] Comment on above: Care Navigation Start: 01-14-2024 Telephone encounter Veda Price DATA ENTRY CLERK [facility] Start: 01-13-2024 Telephone encounter Christina Fontaine CMA [facility] Start: 01-09-2024 Telephone encounter Debi khanna RN [facility] Start: 01-02-2024 Telephone encounter Debi khanna RN Work Phone: [facility] Comment on above: Care Navigation Start: 12-27-2023 Telephone encounter Radha Denis MA [facility] Start: 12-26-2023 Telephone encounter Debi khanna RN [facility] Comment on above: Care Navigation ([employer]) Start: 12-20-2023 Telephone encounter Debi khanna RN Work Phone: [facility] Start: 12-19-2023 End: 12-19-2023 ambulatory ZEENAT SAENZ [facility] Start: 12-19-2023 End: 12-19-2023 Transitional care manage srvc 14 day discharge Zeenat Saenz MD Work Phone: [facility] Comment on above: 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); PVD (peripheral vascular disease) ([facility]); Essential hypertension; Acquired hypothyroidism Start: 12-19-2023 Telephone encounter Debi khanna RN [facility] Comment on above: Care Navigation Start: 12-18-2023 Telephone encounter Debi khanna RN [facility] Start: 12-16-2023 Telephone encounter Debi khanna RN [facility] Phone[facility] Comment on above: Care Navigation Start: 12-14-2023 Refill Zeenat peña MD Work Phone: [facility] Start: 12-13-2023 Telephone encounter Debi khanna RN Work Phone: [facility] [facility] Start: 11-19-2023 End: 11-19-2023 ambulatory Henry Benton Facility:[facility] Start: 11-19-2023 End: 11-19-2023 ambulatory MD Zeenat Saenz Work Phone: [facility] Work Phone: Start: 11-19-2023 End: 11-19-2023 Patient encounter procedure MD Zeenat Saenz Work Phone: [facility]-Ultrasound [facility] Start: 11-07-2023 End: 11-08-2023 Evaluation and management of inpatient [facility] Start: 11-03-2023 End: 11-08-2023 ambulatory [facility] Start: 11-03-2023 End: 11-08-2023 Emergency department patient visit [facility] Start: 11-03-2023 End: 11-07-2023 Evaluation and management of [facility] Start: 11-03-2023 End: 11-08-2023 Emergency department patient visit [facility] Start: 10-25-2023 End: 10-29-2023 Evaluation and management of inpatient Zeenat Saenz Facility:[facility] Start: 10-25-2023 End: 10-29-2023 Evaluation and management of inpatient MD Zeenat Saenz Work Phone: [facility]-4 [facility] Work Phone: Start: 10-21-2023 End: 10-21-2023 ambulatory Kaylene Miller Other [facility] Other Start: 10-21-2023 Telephone encounter Kaylene Adame Vascular Surgery Start: 08-27-2023 End: 08-27-2023 ambulatory Henry Benton Facility:[facility] Start: 08-27-2023 Office outpatient vi sit 25 minutes Henry Benton [facility] Vascular Surgery Start: 08-27-2023 End: 08-27-2023 ambulatory MD Zeenat Saenz Work Phone: [facility] Work Phone: Start: 08-27-2023 End: 08-27-2023 Patient encounter procedure MD Zeenat Saenz Work Phone: [facility]-Ultrasound [facility] Start: 01-14-2023 End: 01-14-2023 ambulatory Kaylene Peterso Other [facility] Other Start: 01-14-2023 Telephone encounter aKylene Adame PG Vascular Surgery Start: 12-19-2022 End: 12-19-2022 ambulatory Kaylene Miller Other [facility] Other Start: 12-19-2022 Telephone encounter Kaylene Adame V[facility] Surgery Start: 12-13-2022 End: 12-13-2022 Patient encounter procedure MD Zeenat Saenz Work Phone: [facility]-Ultrasound [facility] Start: 12-13-2022 End: 12-13-2022 ambulatory MD Zeenat Saenz Work Phone: [facility] Work Phone: Start: 12-03-2022 End: 12-03-2022 ambulatory Kaylene Peterso Other [facility] Other Start: 12-03-2022 Follow-up encounter Kaylene Adame Vascular Surgery Start: 07-24-2022 End: 07-24-2022 ambulatory Kaylene Peterso Other [facility] Other Start: 07-24-2022 Follow-up encounter Kaylene Adame [facility] V[facility] Surgery Start: 07-24-2022 End: 07-24-2022 Patient encounter procedure MD Zeenat Saenz Work Phone: [facility]-Ultrasound [facility] Start: 04-16-2022 End: 04-16-2022 ambulatory Henry Benton Other [facility] Other Start: 04-16-2022 Office outpatient vi sit 25 minutes Henry Benton [facility] Vascular Surgery Start: 08-13-2019 End: 08-14-2019 Patient encounter procedure [facility]OSCH Facility: Procedures Date Procedure Procedure Detail Performing Clinician Start: 12-19-2023 Adult depression scr eening assessment Zeenat Saenz MD Work Phone: Start: 10-29-2023 Duplex scan of lower limb arteries MD Zeenat Saenz Work Phone: Start: 10-25-2023 Lower limb angiography MD Zeenat Saenz Work Phone: Start: 10-24-2023 Adult depression scr eening assessment Debi Lemus RN Work Phone: Start: 08-27-2023 Ankle brachial press ure index MD Zeenat Saenz Work Phone: Start: 07-24-2022 Ankle brachial press ure index MD Zeenat Saenz Work Phone: Plan of Treatment Date Care Activity Detail Author Start: 07-08-2027 DTaP,Tdap and Td Vac cines (2 - Td or Tdap) DTaP,Tdap and Td Vaccines (2 - Td or Tdap) [facility] Start: 12-19-2024 Depression Screening Depression Scre [facility] Start: 12-19-2024 Fall Risk Screening Fall Risk Screen ing [facility] Start: 12-19-2024 Tobacco Screening Tobacco Screening [facility] Start: 11-07-2024 Adult BMI Screening Adult BMI Screen ing [facility] Start: 11-03-2024 Tobacco Screening Tobacco Screening [facility] Start: 10-24-2024 Depression Screening Depression Scre ing [facility] Start: 10-24-2024 Fall Risk Screening Fall Risk Screen ing [facility] Start: 07-12-2024 Influenza vaccination Influenza Vacc ine [facility] Start: 06-07-2024 Medicare Annual Well ness Visit Medicare Annual Wellness Visit [facility] Start: 03-20-2024 End: 03-20-2024 Patient encounter procedure 03/20/2024 1:00 PM EDT Office Visit [facility] [address] [place] [address] Zeenat Saenz MD [address] [place] [address] [facility] Start: 12-19-2023 End: 12-19-2023 Patient encounter procedure 12/19/2023 2:30 PM EST Office Visit [facility] [address] [place] [address] Zeenat Saenz MD [address] [place], [place] [id number] [facility] Start: 10-29-2023 [facility] Start: 10-28-2023 [facility] Start: 10-28-2023 Administration of prophylactic treatment [facility] Start: 10-25-2023 Dilation of Left Fem oral Artery with Intraluminal Device, Percutaneous Approach Dilation of Left Femoral Artery with Intraluminal Device, Percutaneous Approach [facility] Start: 10-25-2023 Plain Radiography of Left Lower Extremity Arteries using Low Osmolar Contrast Plain Radiography of Left Lower Extremity Arteries using Low Osmolar Contrast [facility] Start: 10-25-2023 Hospital admission [facility] Start: 10-25-2023 Referral to Manager Public [facility] Start: 10-25-2023 Referral to vascular surgeon [facility] Start: 10-25-2023 [facility] Start: 10-07-2023 COVID-19 Vaccine ( season) COVID-19 Vaccine () [facility] Start: 1989 Administration of varicella zoster vaccine Zoster (Shingles) Vaccine (1 of 2) [facility] Start: 1957 Adult BMI Follow Up Plan Adult BMI Follow Up Plan [facility] Ankle brachial press ure index [facility] End: 01-13-2025 Bacteria identified in Urine by Culture Urine Culture Microbiology Routine Cystitis 1 Occurrences starting 01/14/2024 until 01/13/2025 [facility] Work Phone: Comment on above: 1 Occurrences starti ng 01/14/2024 until 01/13/2025 Patient Education Peripheral Vas cular (Arterial) Disease (DC) Peripheral Vascular Stenting (DC) [facility] Work Phone: Patient referral [facility] Work Phone: End: 01-13-2025 Urinalysis Urinalysis (clean catch) Lab Routine Cystitis 1 Occurrences starting 01/14/2024 until 01/13/2025 [facility] Comment on above: 1 Occurrences starti ng 01/14/2024 until 01/13/2025 [facility] Immunizations Immunization Date Immunization Notes Care Provider Fa cility 08-12-2023 Influenza, High-dose , Quadrivalent Debi Lemus RN Work Phone: [facility] 08-12-2023 RSV, recombinant, protein subunit RSVpreF, adjuvant reconstituted, 0.5 mL, PF Debi Lemus RN Work Phone: [facility] 08-12-2023 SARS-COV-2 (COVID-19 ) Vaccine, Unspecified Debi Lemus RN Work Phone: [facility] 08-12-2023 influenza virus vaccine, unspecified formulation Debi Lemus RN Work Phone: [facility] 08-26-2022 Influenza Vaccine, Quadrivalent, Adjuvanted Debi Lemus RN Work Phone: [facility] 10-29-2021 Influenza, High-dose , Quadrivalent Debi Lemus RN Work Phone: [facility] 08-05-2020 influenza, high dose seasonal, preservative-free Debi Lemus RN Work Phone: [facility] 08-05-2020 Influenza, High-dose , Quadrivalent Debi Lemus RN Work Phone: [facility] 10-15-2019 influenza, high dose seasonal, preservative-free Debi Lemus RN Work Phone: [facility] 08-26-2018 influenza, high dose seasonal, preservative-free Debi Lemus RN Work Phone: [facility] 10-11-2017 influenza, injectabl e, quadrivalent, preservative free Debi Lemus RN Work Phone: [facility] 08-13-2017 pneumococcal conjuga te vaccine, 13 valent Debi Lemus RN Work Phone: [facility] 08-13-2017 pneumococcal conjuga te vaccine, 7 valent Debi Lemus RN Work Phone: [facility] 07-08-2017 tetanus toxoid, redu vida diphtheria toxoid, and acellular pertussis vaccine, adsorbed Debi Lemus RN Work Phone: [facility] 12-18-2016 pneumococcal conjuga te vaccine, 13 valent Debi Lemus RN Work Phone: [facility] 12-18-2016 pneumococcal conjuga te vaccine, 7 valent Debi Lemus RN Work Phone: [facility] 11-07-2016 influenza, injectabl e, quadrivalent, preservative free Debi Lemus RN Work Phone: [facility] 10-26-2015 influenza, high dose seasonal, preservative-free Debi Lemus RN Work Phone: [facility] 10-26-2015 influenza, injectabl e, quadrivalent, preservative free Debi Lemus RN Work Phone: [facility] 08-24-2015 influenza, injectabl e, quadrivalent, preservative free Debi Lemus RN Work Phone: [facility] 08-24-2015 pneumococcal polysaccharide vaccine, 23 valent Debi Lemus RN Work Phone: [facility] 08-27-2008 tetanus toxoid, adsorbed Debi Lemus RN Work Phone: [facility] 08-27-2008 tetanus toxoid, unspecified formulation Debi Lemus RN [facility] Phone: [facility] diphtheria, tetanus toxoids and acellular pertussis vaccine, unspecified formulation Henry Benton Other [facility] Other Payers Date Payer Category Payer Unknown [id number] 2023 Self-pay [id number] 2004 Medicare MEDICARE MEDICAR E PART A & B [id number] 2004-Present [phone] [address] [place] [address] [id number] 2004 Medicare [id number] 1990 Unknown [employer] - R PREFIX [id number] 1990-Present [phone] [address] [place] [address] [id number] 1959 Medicare [id number] 1959 Unknown [id number] 1939 Unknown [id number] [id number] 1939 Unknown [id number] 2.16.840.1.070753.3.579.2.128 6 1939 Unknown [id number] 2.16.840.1.387168.3.579.2.128 6 1939 Unknown [id number] 2.16.840.1.601212.3.579.2.128 6 1939 Unknown [id number] 2.16.840.1.506712.3.579.2.128 6 1939 Unknown [id number] 2.16.840.1.154033.3.579.2.128 1939 Unknown [id number] 2.16.840.1.213295.3.579.2.128 1939 Unknown [id number] 2.16.840.1.367375.3.579.2.128 1939 Unknown [id number] 2.16.840.1.927279.3.579.2.128 1939 Unknown [id number] 2.16.840.1.166821.3.579.2.128 1939 Unknown [id number] 2.16.840.1.577731.3.579.2.128 1939 Unknown [id number] 2.16.840.1.733035.3.579.2.128 1939 Unknown [id number] 2.16.840.1.473494.3.579.2.128 1939 Unknown [id number] 2.16.840.1.629952.3.579.2.128 1939 Unknown [id number] 2.16.840.1.394569.3.579.2.128 1939 Unknown [id number] 2.16.840.1.094098.3.579.2.128 1939 Unknown [id number] 2.16.840.1.986597.3.579.2.128 1939 Unknown [id number] 2.16.840.1.225906.3.579.2.727 Unknown [id number] 2.16.840.1.158168.3.579.2.531 Unknown [id number] 2.16.840.1.490092.3.579.2.531 Unknown [id number] 2.16.840.1.587750.3.579.2.531 Unknown [id number] 2.16.840.1.653748.3.579.2.531 Social History Date Type Detail Facility Unknown if ever smoked [facility] Other Start: 01-19-2023 End: 12-19-2023 Sex Assigned At [facility] Other Start: 05-12-2021 End: 10-25-2023 Tobacco smoking status NHIS Ex-smoker (finding) [facility] Start: 1940 Sex Assigned At Female [facility] End: 11-11-2008 History of tobacco use Current smoker [facility] End: 11-11-2008 History of tobacco use Cigarette Smoker [facility] Start: 01-19-2023 End: 12-19-2023 Cigarettes smoked current (pack per day) - Reported 1 [facility] Start: 01-19-2023 Tobacco use and exposure Smokeless tobacco non-user [facility] Start: 11-03-2023 End: 12-19-2023 Alcohol intake Current drinker of alcohol (finding) [facility] Do you belong to any clubs or organizations such as hinduism groups, unions, fraternal or athletic groups, or school groups? No [facility] Are you now , , , , never or living with a partner? [facility] How often to you hav e a drink containing alcohol? 4 or more times a week [facility] How many standard dr inks containing alcohol do you have on a typical day? 1 or 2 [facility] How often do you hav e 6 or more drinks on 1 occasion? Never [facility] How hard is it for y ou to pay for the very basics like food, housing, medical care, and heating Not very hard [facility] Adolescent depressio n screening assessment 0 [facility] Do you feel stress - tense, restless, nervous, or anxious, or unable to sleep at night because your mind is troubled all the time - these days [OSQ] Only a little [facility] Start: 01-19-2023 Alcohol Comment 3-4 oz wine every evening [facility] Start: 1940 Sex Assigned At Not on file [employer] Medical Equipment Procedure Code Equipment Code Equipment Origin al Text Equipment Identifier Dates Angiogram, lower extremity, left Multiple peripheral artery stent, bare-metal [id number] [facility] Start: 10-25-2023 Goals Date Patient Goal Desired Activity /State Personal health goal Comment on above: Formatting of this n ote might be different from the original. Evaluation of progress towards goal: In progress: Snf placement for rehab. Functional Status Date Assessment Result Facility 10-29-2023 Functional status Patient at Baseline [facility] Work Phone: Mental Status Date Assessment Result Facility 10-29-2023 Cognitive function Cognitive Sta tus Patient at Baseline [facility] Work Phone: Clinical Notes 04-16-2022 to 02-14-2024 Telephone Encounter - Debi Lemus RN - 02/14/2024 11:00 AM EDTTelephone Encounter - Debi Lemus RN - 02/14/2024 11:00 AM EDTTelephone Encounter - Debi Lemus RN - 01/30/2024 3:20 PM EDT Note Date & Type Note Facility 02-14-2024 Miscellaneous Notes Called Kristen with me and spoke with February. She was unable to give CN updates on rebate due to not being on the account. Attempted a 3-way conference call and patient did not answer. Patient to call [phone] or Spoke with Garett and provided her with the phone number to call and instructions. Garett goes next Saturday to her Vascular MD at [facility]. documented in this encounter [employer] 02-14-2024 Telephone encounter Note Called Kristen with me and spoke with February. She was unable to give CN updates on rebate due to not being on the account. Attempted a 3-way conference call and patient did not answer. Patient to call [phone] or [employer] Work Phone: 02-14-2024 Telephone encounter Note Spoke with Garett and provided her with the phone number to call and instructions. Garett goes next Saturday to her Vascular MD at [facility]. [employer] 01-30-2024 Miscellaneous Notes Patient called [employer] Product Analyst with concerns for the medication prescribed the other day to treat her UTI. Patient does not think she should take the Macrobid because it makes her sick and since I am old, my kidneys do not function as well. Director Asset reviewed calls with patient and encouraged her to take the medication as prescribed. Patient was encouraged to take her medication WITH food to aid in digestion of medication and coating her stomach. She verbalized understanding. documented in this encounter [employer] 01-30-2024 Telephone encounter Note Patient called [employer] with concerns for the medication prescribed the other day to treat her UTI. Patient does not think she should take the Macrobid because it makes her sick and since I am old, my kidneys do not function as well. Director Asset reviewed calls with patient and encouraged her to take the medication as prescribed. Patient was encouraged to take her medication WITH food to aid in digestion of medication and coating her stomach. She verbalized understanding. [employer] Work Phone: 01-28-2024 Miscellaneous Notes Patient calls stating she is allergic to the antibiotic you prescribed according to the pharmacist. She will not take it, would like something that she is not allergic to. We donot have ampicillin on her allergy list, soThe only other antibiotic that will work is macrobid- rx sent Patient notified of message and verbalizes understanding documented in this encounter [facility] 01-28-2024 Telephone encounter Note Patient calls stating she is allergic to the antibiotic you prescribed according to the pharmacist. She will not take it, would like something that she is not allergic to. [facility] 01-28-2024 Telephone encounter Note We donot have ampicillin on her allergy list, soThe only other antibiotic that will work is macrobid- rx sent [facility] 01-28-2024 Telephone encounter Note Patient notified of message and verbalizes understanding [facility] 01-20-2024 Miscellaneous Notes Spoke with patient about stopping plavix and the need to continue Xarelto. Patient took Plavix today but will remove the rest from her pillbox for now. Patient verbalized understanding. documented in this encounter [facility] 01-20-2024 Telephone encounter Note Spoke with patient about stopping plavix and the need to continue Xarelto. Patient took Plavix today but will remove the rest from her pillbox for now. Patient verbalized understanding. [facility] Work Phone: 01-20-2024 Miscellaneous Notes Patient asking if she can continue taking the plavix instead of xarelto due to cost of medications. Plavix is not as effective as xarelto, she could risk losing the other leg...would pt want to talk to Debi Mancini, our aged or disabled carer about costs? Contacted Debi, she will be contacting patient to clarify. documented in this encounter [facility] 01-20-2024 Telephone encounter Note Patient asking if she can continue taking the plavix instead of xarelto due to cost of medications. [facility] 01-20-2024 Telephone encounter Note Plavix is not as effective as xarelto, she could risk losing the other leg...would pt want to talk to Debi Mancini, our aged or disabled carer about costs? [facility] 01-20-2024 Telephone encounter Note Contacted Debi, she will be contacting patient to clarify. [facility] 01-17-2024 Miscellaneous Notes Patient states that she has had 5 nose bleeds this week, asking what can be done since she is on 2 blood thinners. Pt can stop clopidogrel Unable to leave message for patient. documented in this encounter [facility] 01-17-2024 Telephone encounter Note Patient states that she has had 5 nose bleeds this week, asking what can be done since she is on 2 blood thinners. [facility] 01-17-2024 Telephone encounter Note Pt can stop clopidogrel [facility] 01-17-2024 Telephone encounter Note Unable to leave message for patient. [facility] 01-15-2024 Miscellaneous Notes Garett called CN about her medication and it was reviewed over the phone. Patient is aware that her lisinopril is at [facility] and her son should be able to get it tonight and she could use [facility] to help decrease the cost. She was told it was too soon for her med to be refilled but she does not have anymore in the home. Patient verbalized understanding and the home care social work therapist is coming tomorrow and patient was advised to write down any questions she may have. documented in this encounter [facility] 01-15-2024 Telephone encounter Note Garett called CN about her medication and it was reviewed over the phone. Patient is aware that her lisinopril is at [facility] and her son should be able to get it tonight and she could use [facility] to help decrease the cost. She was told it was too soon for her med to be refilled but she does not have anymore in the home. Patient verbalized understanding and the home care social work therapist is coming tomorrow and patient was advised to write down any questions she may have. [employer] Work Phone: 01-15-2024 Miscellaneous Notes Patient left voicemail stating the lisinopril was not filled the synthroid was. I reviewed chart and the Lisinopril was sent to [facility]. I attempted to call patient back with no answer. documented in this encounter [facility] 01-15-2024 Telephone encounter Note Patient left voicemail stating the lisinopril was not filled the synthroid was. I reviewed chart and the Lisinopril was sent to [facility]. I attempted to call patient back with no answer. [employer] 01-14-2024 Miscellaneous Notes nurse calling in stating that patient still having problems with urinary issues. She is taking Keflex intermittently. Nurse asked her to take consistently until Gone. She has had two small nose bleeds in the last week. She is taking Xarelto only once daily instead of twice daily. Nurse has encouraged her to drink more water. Patient states that she urinates more at night. BP elevated at 160/72 today as patient noted to be upset today. Home health is asking for a social work referral to evaluate patient. Ok for social work therapist referral, have them fax me an order and I will sign Sada was notified and will fax an order. documented in this encounter [facility] 01-14-2024 Telephone encounter Note nurse calling in stating that patient still having problems with urinary issues. She is taking Keflex intermittently. Nurse asked her to take consistently until Gone. She has had two small nose bleeds in the last week. She is taking Xarelto only once daily instead of twice daily. Nurse has encouraged her to drink more water. Patient states that she urinates more at night. BP elevated at 160/72 today as patient noted to be upset today. [facility] is asking for a social work referral to evaluate patient. [facility] 01-14-2024 Telephone encounter Note Ok for social work therapist referral, have them fax me an order and I will sign [facility] 01-14-2024 Telephone encounter Note Sada was notified and will fax an order. [facility] 01-13-2024 Miscellaneous Notes Patient states the hospital stopped her lisinopril and started her on Diovan. She would like you to change it back. 2. She is still having urinary urgency and feels the Keflex no longer works for her. Home health comes into her home still, would you like them to get a urine? Please advice. CHRISS Koch 1) lisinopril rx sent and diovan d/c'd 2) yes please have the home helath collect a UA and C&S Left a message on [facility] line (Claudette) to call me back tomorrow. Please place order for UA and C&S. Home health will collect within the next 2 days. Thanks! F: [phone] oRders in Order faxed to [facility]. Patient notified of the urine sample in the next few days and medication change. documented in this encounter [employer] 01-13-2024 Telephone encounter Note Patient states the hospital stopped her lisinopril and started her on Diovan. She would like you to change it back. 2. She is still having urinary urgency and feels the Keflex no longer works for her. Home health comes into her home still, would you like them to get a urine? Please advice. CHRISS Koch [employer] 01-13-2024 Telephone encounter Note 1) lisinopril rx sent and diovan d/c'd 2) yes please have the home helath collect a UA and C&S [employer] 01-13-2024 Telephone encounter Note Left a message on [facility] line (Claudette) to call me back tomorrow. [facility] [facility] 01-13-2024 Telephone encounter Note Please place order for UA and C&S. [facility] will collect within the next 2 days. Thanks! F: [phone] [facility]24 Telephone encounter [facility] 01-13-2024 Telephone encounter Note Order faxed to [facility]. Patient notified of the urine sample in the next few days and medication change. [facility] 01-09-2024 Miscellaneous Notes CN moving patient to graduation from Care Navigation program as she has not had any further needs, has followed up with providers as scheduled and no recent hospitalizations. Goal for a safe transition to home has been met. Patient will be monitored for future admissions and needs and patient was approved for patient assistance with Kristen. JAY JAY to monitor for future needs. documented in this encounter [facility] 01-09[facility]2024 Telephone encounter Note CN moving patient to graduation from Care Navigation program as she has not had any further needs, has followed up with providers as scheduled and no recent hospitalizations. Goal for a safe transition to home has been met. Patient will be monitored for future admissions and needs and patient was approved for patient assistance with Xarelto. GOYAL to monitor for future needs. [employer] Work Phone: 01-02-2024 Miscellaneous Notes Credit Product Analyst called patient to see how she was doing with her medications and home care. Things are going well and she did pay $125 for the Xarelto but pharmacy told her she could get a rebate as we had discussed prior. She remembered but has not had her son help with that yet. She does complain of pain in her right leg at night and it keeps her up. She has been taking 2 Tylenol which helps a little bit but she may need to talk to Dr Saenz about something for those nerves. Patient was advised to use a heating pad on low to help relax the nerves and use a pillow between her legs, or under, for support when lying in bed. Patient was agreeable to those suggestions. documented in this encounter [employer] 01-02-2024 Telephone encounter Note Credit Product Analyst called patient to see how she was doing with her medications and home care. Things are going well and she did pay $125 for the Xarelto but pharmacy told her she could get a rebate as we had discussed prior. She remembered but has not had her son help with that yet. She does complain of pain in her right leg at night and it keeps her up. She has been taking 2 Tylenol which helps a little bit but she may need to talk to Dr Saenz about something for those nerves. Patient was advised to use a heating pad on low to help relax the nerves and use a pillow between her legs, or under, for support when lying in bed. Patient was agreeable to those suggestions. [employer] Work Phone: 12-27-2023 Miscellaneous Notes Patient asking if medication can be sent fo [facility]TI. [facility] to [facility] Patient advised medication was sent [facility]-27-[facility]23 Telephone encounter Note Patient asking if medication can be sent fo UTI. [facility] 12-27-2023 Telephone encounter Note Keflex generic sent to [facility] 12-27-2023 Telephone encounter Note Patient advised medication was sent [facility] 12-26-2023 Miscellaneous Notes Spoke with Garett about her Xarelto. Patient had mailed in a statement from [employer] that the [employer] [facility] card had been rejected and didn't understand why she had to have such an expensive medication. Patient was kermit to get 120 pills for approx $165. Director Asset will call to ask about the savings plan and enroll patient in their PAP if needed. Patient will be called with update. Called Alec Levine to discuss account for patient and then connected via 3-way calling with Garett. [employer] community health program representative went through privacy statement and rules. Garett wanted to proceed in application for the Xarelto with Ms program. Completed application process over the phone and a new savings card will be mailed to Garett in 7-10 bus days. They also will send a rebate for patient to complete so that she may be refunded her amount paid for the 3 bottles she received last weekend. Instructions will be provided with the rebate form. Savings card information were provided and CN and patient wrote down the information. documented in this encounter [employer] 12-26-2023 Telephone encounter Note Spoke with Garett about her Xarelto. Patient had mailed in a statement from [employer] that the [employer] [facility] card had been rejected and didn't understand why she had to have such an expensive medication. Patient was kermit to get 120 pills for approx $165. Director Asset will call to ask about the savings plan and enroll patient in their PAP if needed. Patient will be called with update. Called Charlo Abner to discuss account for patient and then connected via 3-way calling with Garett. [employer] community health program representative went through privacy statement and rules. Garett wanted to proceed in application for the Xarelto with Me program. Completed application process over the phone and a new savings card will be mailed to Garett in 7-10 days. They also will send a rebate for patient to complete so that she may be refunded her amount paid for the 3 bottles she received last weekend. Instructions will be provided with the rebate form. Savings card information were provided and CN and patient wrote down the information. [employer] Work Phone: 12-20-2023 Miscellaneous Notes Updated medication list was faxed to [facility]. Your fax has been successfully sent to [phone] at [phone]. Garett Nieto Med list-updated From: [email or web address] 12/20/2023 8:10:35 AM Origin Record Created by [email or web address] documented in this encounter [employer] 12-20-2023 Telephone encounter Note Updated medication list was faxed to [facility]. Your fax has been successfully sent to [phone] at [phone]. Garett Cole list-updated From: [email or web address] 12/20/2023 8:10:35 AM Origin Record Created by [id number] [employer] Work Phone: 12-19-2023 Miscellaneous Notes Contact Type: Direct contact - Face to face visit Met with Garett at PCP appointment today to review all medications, pill bottles, and purpose of medications. PCP was involved and medication list was updated on the MAR and a clean copy was printed and reviewed again with the patient. Medications that hse is no longer to take, were placed into a bag and knotted up after bottles were written on to not take. Called [facility] and had Diovan prescription filled and patient is to have her son go pick it up this evening and instructions to do so, were written on med list. Director Asset to call [facility] and review with them as they are also assisting with filling a pill box for her. documented in this encounter [employer] 12-19-2023 Telephone encounter Note Contact Type: Direct contact - Face to face visit Met with Garett at PCP appointment today to review all medications, pill bottles, and purpose of medications. PCP was involved and medication list was updated on the JAN and a clean copy was printed and reviewed again with the patient. Medications that hse is no longer to take, were placed into a bag and knotted up after bottles were written on to not take. Called [facility] and had Diovan prescription filled and patient is to have her son go pick it up this evening and instructions to do so, were written on med list. Director Asset to call [facility] and review with them as they are also assisting with filling a pill box for her. [employer] Work Phone: 12-19-2023 History of Presen t illness Narrative Images from the original note were not included. [id number] [facility] [id number] SUBJECTIVE: Transition of Care Additional Questions/Concerns Requiring PCP Follow-Up: Called [facility] to ask for DC summary sent. Used hospital DC summary to review. Patient does not have medications. Pharmacy only filled Protonix and plavix. Did not receive other prescriptions that were stated as sent. Patient would now like home care ordered for her. KELSIE scheduled 12/19/23 and Debi to set up transportation. This documentation is being used for Transition of Care purposes: Yes Goal: Patient will demonstrate a safe transition from facility to home. Diagnosis on Discharge: Principal Problem: COPD exacerbation ([facility] Active Problems: Gastroesophageal reflux disease without esophagitis Essential hypertension Hypothyroidism PVD (peripheral vascular disease) ([facility]) Weakness History of pulmonary embolism History of stroke Acute hypoxic respiratory failure ([facility] COVID-19 Discharge Specialty: Vascular Name of Discharging Facility: [facility] Date of Facility Discharge: 12/11/23 Date of Interactive Contact and Name of Retail Planner: Spoke with Garett 12/13/23 at 11:30. Patient canceled and rescheduled todays appt for KELSIE. TCM call then completed. Medication Review Completed: Yes but patient is not clear and needs reviewed at appt. Medication Reconciliation Questions/Concerns: No facility DC docs available. Reviewed hospital DC. Pt should have STOPPED lisinopril and Valsartan-hydrochlorothiazide. Patient does not have medications in home and has been taking baby aspirin bc she does not have her blood thinner. [facility] and protonix ready to be picked up. They do not have Xarelto on the patient profile. Med list at hospital DC is as follows: Medication List at Discharge atorvastatin calcium 80 mg oral Daily clopidogrel bisulfate 75 mg oral Daily iron polysaccharide complex 150 mg oral 2 times daily levothyroxine sodium 100 mcg oral Daily pantoprazole sodium 40 mg oral Every morning before breakfast rivaroxaban 2.5 mg oral 2 times daily valsartan 160 mg oral Daily Follow Up Appointments with Providers: Primary: Zeenat Saenz MD rescheduled KELSIE 12/19/23 @ 2:30 Specialty: Specialty: Specialty: Review of Pending Lab/Diagnostic Tests and Plan for Completion: Patient had revascularization of the left food and stent placement. DC on Xarelto, Plavix, and statin prior to getting COVID and then DC to SNF Assessment and Support of Treatment Regimen Adherence and Medication Management: Patient called and is not able to come in today for KELSIE appt. Rescheduled and Tcm call documented Patient is doing ok. No incontinence, no pain. Feels weak still since she had COVID DME: uses wheelchair, grab bars, and transfer board Able to get self in and out of bed, chair and toilet with use of devices Support: friend Yecenia and son Nolberto Does not have medications but son is supposed to pick them up tonight. Denies need for home care Education Provided by ACN to Support Self-Management, Independent Living and ADLs: Review medications and bring list with her to appt next week with PCP. Fall safety Call MD for new or worsening pain, discoloration of LLE, swelling, or other symptoms. Take medications as prescribed -Take medications as prescribed -Reviewed signs of a stroke using BE FAST, actions to take and risk factors. Reviewed acronym and symptoms. Balance (Loss of Balance, Headache, Dizziness), Eyes (Abrupt Vision Changes), Face (Drooping), Arms (Numbness/Weakness Arms/Legs), Speech (Difficulty with Speech), Time (Call 911 Right Away). Patient Verbalizes Understanding. -Anticoagulation Education: reviewed signs of bleeding and when to contact provider/go to ER, bleeding precautions and avoid NSAIDS. 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 -CN contact information, Debi Lemus RN, can be reached at [phone] and will follow for a minimum of 30 days following hospitalization Communication with Home Health Agencies and Other Services Utilized/Needed by the Patient: Patient declined at [facility] and is now interested. Will obtain order and send referral. Patient ID: Garett Nieto is a 83 y.o. female. 83 yo WF with transition of care visit , has been home 8 days, pt has home health and has therapy, s/p distant amputation righ t leg. Pt had covid which put her in the hosptal and made her very weak. The following portions of the patient's history were reviewed and updated as appropriate: allergies, current medications, past family history, past medical history, past social history, past surgical history and problem list. REVIEW OF SYSTEMS: Review of Systems Neurological: Positive for weakness. PHYSICAL EXAMINATION: Vitals: 12/19/23 1431 BP: 110/80 BP Site: Left Arm BP Postition: Sitting BP CUFF SIZE: M (9-13 inches) Pulse: 80 Resp: 16 Temp: 36.3 C (97.3 F) TempSrc: Tympanic Physical Exam Vitals and nursing note reviewed. Constitutional: Appearance: Normal appearance. HENT: Head: Normocephalic and atraumatic. Eyes: Extraocular Movements: Extraocular movements intact. Pupils: Pupils are equal, round, and reactive to light. Cardiovascular: Rate and Rhythm: Normal rate and regular rhythm. Pulses: Normal pulses. Heart sounds: Normal heart sounds. Comments: S/p right BKA Pulmonary: Effort: Pulmonary effort is normal. Breath sounds: Normal breath sounds. Skin: General: Skin is warm and dry. Neurological: General: No focal deficit present. Mental Status: She is alert and oriented to person, place, and time. Psychiatric: Mood and Affect: Mood normal. Behavior: Behavior normal. ASSESSMENT/PLAN: Garett was seen today for kelsie. Diagnoses and all orders for this visit: HHT (hereditary hemorrhagic telangiectasia) ([facility]) PVD (peripheral vascular disease) ([facility]) Essential hypertension Acquired hypothyroidism Follow-up: Reviewed meds in detail and aged or disabled carer involved 3 months documented in this encounter [employer] 12-18-2023 Miscellaneous Notes Reached patient to check on her and was told physical therapy was there. She is coming to appt with PCP tomorrow 12/19/23 and is aware of picker tender helper time with [facility]. documented in this encounter [employer] 12-18-2023 Telephone encounter Note Reached patient to check on her and was told physical therapy was there. She is coming to appt with PCP tomorrow 12/19/23 and is aware of picker tender helper time with [facility]. [employer] Work Phone: 12-16-2023 Miscellaneous Notes LM for TRIPS call back. Needs transportation for appt on 12/19/23 @ 2:30. They returned call and is set up for picker tender helper between 1:36-2:06 for scheduled appt time. Notified Patient. Home care was ordered at [place] and sent to [facility]. They saw patient yesterday and reviewed medications with patient. [facility] 12-16-2023 Telephone encounter Note LM for TRIPS call back. Needs transportation for appt on 12/19/23 @ 2:30. They returned call and is set up for picker tender helper between 1:36-2:06 for scheduled appt time. Notified Patient. Home care was ordered at [place] and sent to [facility]. They saw patient yesterday and reviewed medications with patient. [employer] Work Phone: 12-14-2023 Miscellaneous Notes [facility] documented in this encounter [facility] 12-14-2023 Telephone encounter Note [facility] 12-13-2023 Miscellaneous Notes I don't seem to be able to send for refill request. ALL NEED TO BE MARKED NO PRINT. Can you please refill her ... Lipitor 80 mg daily--- 90 tabs for 3 month supply and 3 refills Iron 150 mg capsule BID--- 3 month supply with 3 refills Xarelto 2.5 mg oral in the AM and bedtime--- 3 month supply with 3 refills Diovan 160 mg daily - 3 month supply with 3 refills. Thank you documented [facility] this [facility] 12-13-2023 Telephone encounter Note I don't seem to be able to send for refill request. ALL NEED TO BE MARKED NO PRINT. Can you please refill her ... Lipitor 80 mg daily--- 90 tabs for 3 month supply and 3 refills Iron 150 mg capsule BID--- 3 month supply with 3 refills Xarelto 2.5 mg oral in the AM and bedtime--- 3 month supply with 3 refills Diovan 160 mg daily - 3 month supply with 3 refills. Thank you [employer] Work Phone: 10-28-2023 Progress note Note Date/Time October 28, 2023 12:32pm [facility] [address] [place] [address] Hospitalist Progress Note Signed Patient: Garett Nieto I MR#: [id number] : 1940 Acct:[id number] Age/Sex: 83 / F Adm Date: 3 Loc: Room: 7F5303-0 Type: ADM IN Attending Dr: Derek Hardy MD Copies to: ~ Date of Service: 10/28/2023 Subjective Subjective Narrative: Patient continues to have odynophagia. She is very afraid of eating. She underwent speech therapy. Otherwise she has no complaints. Heart is regular Lungs are clear Abdomen soft Assessment and Plan: 1. Peripheral artery disease, s/p revascularization of left foot via 5.5mm x120mm stent extending to mid segment of the superficial femoral artery.? -continue high-intensity statin -Continue Plavix 2. Microcytosis, mild iron deficiency Oral supplementation with iron upon discharge 3. HTN Continue Procardia #4 Odynophagia and dysphagia related to anesthesia/LMA mask. Patient had similar symptoms after intubation in the past, at that time he had NG tube and subsequently a PEG tube. Seen by speech therapy, she is felt safe to eat thin liquids and pur?ed diet. I believe that she is very afraid of swallowing. I encouraged her. No indication to insert feeding tubes at this time. Continue speech therapy Ordered supplement Anticipate discharge home tomorrow if oral intake is adequate Chronic conditions--continue home meds COPD HTN hypothyroidism Exam Physical Exam Vital Signs: Temp Pulse Resp BP Pulse Ox O2 Del Method O2 Flow Rate 97.7 F 89 16 162/84 H 96 Room Air 3 10/28/23 11:41 10/28/23 11:41 10/28/23 11:41 10/28/23 11:41 10/28/23 11:41 10/28/23 11:41 10/25/23 19:23 Objective Lab Results 10/26/23 04:13 10/26/23 04:13 Meds Allergies and Active Meds Allergies moxifloxacin [From Avelox] Allergy (Verified 05/12/21 17:32) Unknown Reaction sulfamethoxazole [From Bactrim] Allergy (Verified 05/12/21 17:32) Unknown Reaction trimethoprim [From Bactrim] Allergy (Verified 05/12/21 17:32) Unknown Reaction Active Meds: Active Medications Generic Name Dose Route Start Last Admin Trade Name Freq PRN Reason Stop Dose Admin Acetaminophen 1,000 mg 10/25/23 02:49 10/25/23 20:48 Acetaminophen 500 Mg Tablet PO 10/24/24 02:48 1,000 mg Q6HR PRN Administration Pain Scale 1 - 3 or fever Al Hydrox/Mg Hydrox/Simethicone 30 ml 10/27/23 12:58 10/27/23 14:41 Mag Hydrox/Al Hydrox/Simeth 30 Ml Udc PO 10/26/24 12:57 30 ml Q4H PRN Administration Heartburn Atorvastatin Calcium 80 mg 10/25/23 21:00 10/27/23 22:37 Atorvastatin 80 Mg Tablet PO 10/24/24 20:59 Not Given QPM BHASKAR Clopidogrel Bisulfate 75 mg 10/25/23 09:00 10/28/23 12:16 Clopidogrel Bisulfate 75 Mg Tablet PO 10/24/24 08:59 75 mg DAILY BHASKAR Administration Hydromorphone HCl 0.5 mg 10/25/23 10:43 Hydromorphone 0.5 Mg/0.5 Ml Syringe IV-PUSH Q2H PRN Pain Scale 8 - 10 Levothyroxine Sodium 75 mcg 10/25/23 06:30 10/28/23 06:34 Levothyroxine 75 Mcg Tablet PO 10/24/24 06:29 Not Given DAILY@0630 BHASKAR Lisinopril 10 mg 10/25/23 09:00 10/28/23 12:14 Lisinopril 10 Mg Tablet PO 10/24/24 08:59 10 mg DAILY BHASKAR Administration Naloxone HCl 0.1 mg 10/25/23 02:49 Naloxone Hcl 0.4 Mg/Ml Vial IV-PUSH 10/24/24 02:48 Q2M PRN Opioid Reversal Ondansetron HCl 4 mg 10/25/23 02:49 Ondansetron Odt 4 Mg Tab.Rapdis PO 10/24/24 02:48 Q6HR PRN Nausea And Vomiting Oxycodone HCl 5 mg 10/25/23 02:49 10/25/23 18:27 Oxycodone Ir 5 Mg Tablet PO 5 mg Q6HR PRN Administration Pain Scale 4 - 7 Polysaccharide Iron Complex 150 mg 10/26/23 11:00 10/28/23 11:23 Iron Polysaccharide Complex 150 Mg Capsule PO 10/25/24 10:59 Not Given Q48H BHASKAR Rivaroxaban 10 mg 10/27/23 22:00 10/27/23 22:37 Rivaroxaban 10 Mg Tablet PO 10/26/24 21:59 Not Given QHS BHASKAR Sodium Chloride 10 ml 10/25/23 01:20 Sodium Chloride 0.9 % 10 Ml Syringe IV-PUSH 10/24/24 01:19 PRN PRN Flush Sodium Chloride 0 ml 10/25/23 06:00 10/28/23 06:34 Sodium Chloride 0.9 % 10 Ml Syringe IV-PUSH 10/24/24 05:59 Not Given QSHIFT [facility] A&P - Hospitalist Assessment/Plan (1) PVD (peripheral vascular disease): Plan as above Documented By: Derek Hardy MD 10/28/23 1230 Signed By: <Electronically signed by Derek Hadry MD> 10/28/23 1232 [facility] Work Phone: 1(844) 850-116012-17-2023 Progress note Author Derek Hardy [facility] October 27, 2023 1:03pm Note Date/Time October 26, 2023 4:20pm [facility] [address] [place] [address] Hospitalist Progress Note Signed Patient: Garett Nieto I MR#: [id number] : 1940 Acct:[id number] Age/Sex: 83 / F Adm Date: 3 Loc: 4N Room: 9V4287-8 Type: ADM IN Attending Dr: Derek Hardy MD Copies to: ~ Date of Service: 10/26/2023 Subjective Subjective Narrative: Patient complaining of some trouble with her swallowing later t in the evening yesterday. She reports that she had similar events with prior surgeries, to thepoint where she actually had an NG tube and ultimately a PEG tube. Right now she is feeling better, she was able to do speech therapy and was able to swallow thick liquids. No evidence of any neurological deficit Heart is regular Lungs are clear Abdomen soft Assessment and Plan: 1. Peripheral artery disease, s/p revascularization of left foot via 5.5mm x120mm stent extending to mid segment of the superficial femoral artery.? -continue high-intensity statin -Plavix 2. Microcytosis -Low-normal ferritin, low iron saturation -Replete iron -CBC in AM 3. HTN -Continue Procardia #4 dysphagia. Continue speech therapy Anticipate discharge home tomorrow Chronic conditions--continue home meds COPD HTN hypothyroidism Exam Physical Exam Vital Signs: Temp Pulse Resp BP Pulse Ox O2 Del Method O2 Flow Rate 97.6 F 77 12 151/65 H 96 Room Air 3 10/26/23 11:51 10/26/23 11:51 10/26/23 11:51 10/26/23 11:51 10/26/23 11:51 10/26/23 11:51 10/25/23 19:23 Objective Lab Results 10/26/23 04:13 10/26/23 04:13 Meds Allergies and Active Meds Allergies moxifloxacin [From Avelox] Allergy (Verified 05/12/21 17:32) Unknown Reaction sulfamethoxazole [From Bactrim] Allergy (Verified 05/12/21 17:32) Unknown Reaction trimethoprim [From Bactrim] Allergy (Verified 05/12/21 17:32) Unknown Reaction Active Meds: Active Medications Generic Name Dose Route Start Last Admin Trade Name Freq PRN Reason Stop Dose Admin Acetaminophen 1,000 mg 10/25/23 02:49 10/25/23 20:48 Acetaminophen 500 Mg Tablet PO 10/24/24 02:48 1,000 mg Q6HR PRN Administration Pain Scale 1 - 3 or fever Atorvastatin Calcium 80 mg 10/25/23 21:00 10/25/23 20:48 Atorvastatin 80 Mg Tablet PO 10/24/24 20:59 80 mg QPM BHASKAR Administration Clopidogrel Bisulfate 75 mg 10/25/23 09:00 10/26/23 09:23 Clopidogrel Bisulfate 75 Mg Tablet PO 10/24/24 08:59 75 mg DAILY BHASKAR Administration Hydromorphone HCl 0.5 mg 10/25/23 10:43 Hydromorphone 0.5 Mg/0.5 Ml Syringe IV-PUSH Q2H PRN Pain Scale 8 - 10 Levothyroxine Sodium 75 mcg 10/25/23 06:30 10/26/23 06:26 Levothyroxine 75 Mcg Tablet PO 10/24/24 06:29 75 mcg DAILY@0630 BHASKAR Administration Lisinopril 10 mg 10/25/23 09:00 10/26/23 09:23 Lisinopril 10 Mg Tablet PO 10/24/24 08:59 10 mg DAILY BHASKAR Administration Naloxone HCl 0.1 mg 10/25/23 02:49 Naloxone Hcl 0.4 Mg/Ml Vial IV-PUSH 10/24/24 02:48 Q2M PRN Opioid Reversal Ondansetron HCl 4 mg 10/25/23 02:49 Ondansetron Odt 4 Mg Tab.Rapdis PO 10/24/24 02:48 Q6HR PRN Nausea And Vomiting Oxycodone HCl 5 mg 10/25/23 02:49 10/25/23 18:27 Oxycodone Ir 5 Mg Tablet PO 5 mg Q6HR PRN Administration Pain Scale 4 - 7 Polysaccharide Iron Complex 150 mg 10/26/23 11:00 10/26/23 12:09 Iron Polysaccharide Complex 150 Mg Capsule PO 10/25/24 10:59 150 mg Q48H BHASKAR Administration Rivaroxaban 2.5 mg 10/26/23 06:00 10/26/23 05:51 Rivaroxaban 2.5 Mg Tablet PO 10/25/24 05:59 2.5 mg Q12H BHASKAR Administration Sodium Chloride 10 ml 10/25/23 01:20 Sodium Chloride 0.9 % 10 Ml Syringe IV-PUSH 10/24/24 01:19 PRN PRN Flush Sodium Chloride 0 ml 10/25/23 06:00 10/26/23 13:57 Sodium Chloride 0.9 % 10 Ml Syringe IV-PUSH 10/24/24 05:59 10 ml QSHIFT BHASKAR Administration A&P - Hospitalist Assessment/Plan (1) Ischemic pain of left foot: (2) PVD (peripheral vascular disease): (3) HTN (hypertension): Plan Assessment and Plan: 1. Peripheral artery disease, s/p revascularization of left foot via 5.5mm x120mm stent extending to mid segment of the superficial femoral artery.? -continue high-intensity statin -Dilaudid q2h for pain control -Heparin drip -Vascular surgery on board -PT/OT -Anticipating d/c tomorrow 2. Microcytosis -Low-normal ferritin, low iron saturation -Replete iron -CBC in AM 3. HTN -Continue Procardia Chronic conditions--continue home meds COPD HTN hypothyroidism Documented By: Rachel Locke MD, RES 10/26/23 1616 Signed By: <Electronically signed by RES Rachel Locke> 10/26/23 1736 <Electronically signed by Derek Hardy MD> 10/27/[address] [facility] Work Phone: 1(331) 648-300412-16-2023 Progress note Author Derek Hardy [facility] October 26, 2023 3:06pm Note Date/Time October 25, 2023 8:21pm [facility] [address] [place] [address] Hospitalist Progress Note Signed Patient: Garett Nieto I MR#: [id number] : 1940 Acct:[id number] Age/Sex: 83 / F Adm Date: 3 Loc: Room: [address] [place] [address] Type: ADM IN Attending Dr: Derek Hardy MD Copies to: ~ Date of Service: 10/25/2023 Subjective Subjective Narrative: Attending note: I saw the patient personally on the day of encounter. I reviewed the relevant history, and performed the agustin elements of the physical examination. I reviewedthe relevant laboratory workup, radiological studies and the current treatment plan. I formulated the plan of care and confirmed it with the resident/student/SHORTS SIFTER. Ms. Nieto is an 83-year-old female with PMH of CVA, PVD, PAD, hypothyroidism, HTN, right BKA presented to [facility] from her PCPs office fordiscolored foot. She was transferred here as inpatient under the care of the hospitalist team for further evaluation and treatment of limb ischemia. This morning on hospital day 1, She states she has pain in the left foot. She is scheduled for a procedure this afternoon with Dr. Benton. She has a history of vascular disease and has had surgery on this foot before. She lost her other leg below the knee to amputation. She feels well otherwise, denying fever, chills, chest pain or difficulty breathing. Physical Exam: GENERAL: No apparent distress, alert, oriented, appears stated age, comfortable HEENT: NC/AT, EOMI, PERRL, conjunctiva clear, no adenopathy, dentition CARDIOVASCULAR: Regular rate and regular rhythm, no murmurs, symmetric palpable radial pulses RESPIRATORY: nonlabored work of breathing on room air, clear to auscultation bilaterally, symmetric chest rise, no wheezes/rales/rhonci ABDOMEN: Soft, non-tender, non-distended, normal bowel sounds BACK: No midline or paraspinal tenderness EXTREMITIES: moving all extremities well. Well-perfused. UE: Full ROM, weaver narrow fabrics strength 5/5 and symmetric. LE: Full ROM, strength 5/5 with flexion, extension, and abduction. Sensation intact. No edema SKIN: Intact, no rash, no trauma NEURO: Cranial nerves grossly intact, no focal neurologic signs PSYCHIATRIC: Good eye contact, appropriate mood and affect, cooperative Assessment and Plan: 1. Peripheral artery disease -Start high-intensity statin -Dilaudid q2h for pain control -Heparin drip -Vascular surgery on board. Procedure planned for today 2. Microcytosis -Iron panel in AM -CBC Chronic conditions--continue home meds COPD HTN hypothyroidism Exam Physical Exam Vital Signs: Temp Pulse Resp BP Pulse Ox O2 Del Method O2 Flow Rate 97.4 F L 76 16 161/81 H 94 L Room Air 3 10/25/23 11:08 10/25/23 18:00 10/25/23 18:00 10/25/23 18:00 10/25/23 18:00 10/25/23 18:00 10/25/23 14:55 Objective Lab Results 10/25/23 05:16 10/25/23 05:16 Meds Allergies and Active Meds Allergies moxifloxacin [From Avelox] Allergy (Verified 05/12/21 17:32) Unknown Reaction sulfamethoxazole [From Bactrim] Allergy (Verified 05/12/21 17:32) Unknown Reaction trimethoprim [From Bactrim] Allergy (Verified 05/12/21 17:32) Unknown Reaction Active Meds: Active Medications Generic Name Dose Route Start Last Admin Trade Name Freq PRN Reason Stop Dose Admin Acetaminophen 1,000 mg 10/25/23 02:49 Acetaminophen 500 Mg Tablet PO 10/24/24 02:48 Q6HR PRN Pain Scale 1 - 3 or fever Atorvastatin Calcium 80 mg 10/25/23 21:00 Atorvastatin 80 Mg Tablet PO 10/24/24 20:59 QPM BHASKAR Clopidogrel Bisulfate 75 mg 10/25/23 09:00 10/25/23 09:31 Clopidogrel Bisulfate 75 Mg Tablet PO 10/24/24 08:59 75 mg DAILY BHASKAR Administration Hydromorphone HCl 0.5 mg 10/25/23 10:43 Hydromorphone 0.5 Mg/0.5 Ml Syringe IV-PUSH Q2H PRN Pain Scale 8 - 10 Sodium Chloride 1,000 mls @ 50 mls/hr 10/25/23 14:30 10/25/23 14:20 0.9% Sodium Chloride 1,000 Ml IV 10/24/24 14:29 50 mls/hr .Q20H BHASKAR Administration Sodium Chloride 1,000 mls @ 150 mls/hr 10/25/23 15:15 10/25/23 16:58 0.9% Sodium Chloride 1,000 Ml IV 10/24/24 15:14 150 mls/hr .Q6H40M BHASKAR Administration Levothyroxine Sodium 75 mcg 10/25/23 06:30 10/25/23 06:20 Levothyroxine 75 Mcg Tablet PO 10/24/24 06:29 75 mcg DAILY@0630 BHASKAR Administration Lisinopril 10 mg 10/25/23 09:00 10/25/23 09:31 Lisinopril 10 Mg Tablet PO 10/24/24 08:59 10 mg DAILY BHASKAR Administration Naloxone HCl 0.1 mg 10/25/23 02:49 Naloxone Hcl 0.4 Mg/Ml Vial IV-PUSH 10/24/24 02:48 Q2M PRN Opioid Reversal Ondansetron HCl 4 mg 10/25/23 02:49 Ondansetron Odt 4 Mg Tab.Rapdis PO 10/24/24 02:48 Q6HR PRN Nausea And Vomiting Oxycodone HCl 5 mg 10/25/23 02:49 10/25/23 18:27 Oxycodone Ir 5 Mg Tablet PO 5 mg Q6HR PRN Administration Pain Scale 4 - 7 Rivaroxaban 2.5 mg 10/25/23 15:05 10/25/23 18:27 Rivaroxaban 2.5 Mg Tablet PO 10/24/24 15:04 2.5 mg BID BHASKAR Administration Sodium Chloride 10 ml 10/25/23 01:20 Sodium Chloride 0.9 % 10 Ml Syringe IV-PUSH 10/24/24 01:19 PRN PRN Flush Sodium Chloride 0 ml 10/25/23 06:00 10/25/23 14:13 Sodium Chloride 0.9 % 10 Ml Syringe IV-PUSH 10/24/24 05:59 Not Given QSHIFT BHASKAR A&P - Hospitalist Assessment/Plan (1) Ischemic pain of left foot: (2) PVD (peripheral vascular disease): (3) HTN (hypertension): Plan Assessment and Plan: 1. Peripheral artery disease -Start high-intensity statin -Dilaudid q2h for pain control -Heparin drip -Vascular surgery on board. Procedure planned for today 2. Microcytosis -Iron panel in AM -CBC Chronic conditions--continue home meds COPD HTN hypothyroidism Documented By: Rachel Locke MD, RES 10/25/232008 Signed By: <Electronically signed by RES Rachel Locke> 10/25/232020 <Electronically signed by Derek Hardy MD> 10/26/[address] [facility] Work Phone: [phone]) 663-839512-16-2023 Progress note Author Henry Benton [facility] October 26, 2023 10:14am Note Date/Time October 26, 2023 10:14am [facility] [address] [place] [address] Vascular Surgery Progress Note Signed Patient: Garett Nieto I MR#: [id number] : 1940 Acct:[id number] Age/Sex: 83 / F Adm Date: 3 Loc: 4N Room: 6J1411-2 Type: ADM IN Attending Dr: Derek Hardy MD Copies to: ~ Date of Service: 10/26/2023 Subjective Subjective Interval history: She is doing well this morning without new complaints Exam Physical Exam Vital Signs: Temp Pulse Resp BP Pulse Ox O2 Del Method O2 Flow Rate 98.7 F 71 12 141/63 H 98 Room Air 3 10/26/23 07:59 10/26/23 07:59 10/26/23 07:59 10/26/23 07:59 10/26/23 07:59 10/26/23 09:10 10/25/23 19:23 Narrative: Left foot is warm and hyperemic Objective Labs 10/26/23 04:13 10/26/23 04:13 Other Labs: Laboratory Results - last 24 hr 10/25/23 10/26/23 10/26/23 07:56 04:13 04:13 Corrected WBC 5.6 Uncorrected WBC Count 5.6 RBC 5.12 H Hgb 12.2 Hct 38.4 MCV 75.0 L MCH 23.8 L MCHC 31.7 L RDW 18.5 H Plt Count 488 H MPV 8.2 Neut % (Auto) 82.9 Lymph % (Auto) 8.8 Izard % (Auto) 6.9 Eos % (Auto) 0.8 Baso % (Auto) 0.6 Nucleat RBC Rel Count 0.0 Neut # (Auto) 4.7 Lymph # (Auto) 0.5 L Izard # (Auto) 0.4 Eos # (Auto) 0.0 Baso # (Auto) 0.0 Platelet Estimate Increased Plt Morphology Comment Normal RBC Morphology N/A Polychromasia Slight Hypochromasia Slight Poikilocytosis Slight Anisocytosis Slight Microcytosis Slight Macrocytosis Slight Target Cells Slight Ovalocytes Slight Crenated Cell Slight APTT 72.6 H PHA Creatinine Clear 40.82 Sodium 135 L Potassium 3.7 Chloride 103 Carbon Dioxide 22.6 Anion Gap 13.1 BUN 10 Creatinine 0.47 L Est GFR (CKD-EPI) > 60.0 Glucose 59 L Calcium 8.6 Iron 58 TIBC 316 Iron Saturation 18.4 L Transferrin 226 Ferritin 15.8 A&P - Vascular Assessment/Plan (1) PVD (peripheral vascular disease): Plan She can be discharged today if cleared with the medical team. Her regimen for discharge medication should either be aspirin and Plavix or low-dose Xarelto andPlavix. Yesterday I started her on the Xarelto because it was not in the chart that she was on aspirin but she reports that she is taking a baby aspirin. Either of these regimens is acceptable. We will see her back in the office in afew weeks for repeat ankle-brachial index. If she is improved and doing well nofurther intervention will be performed. If she continues to have pain in the foot despite stenting of her femoral artery we may need to perform a short segment bypass from the popliteal to the posterior tibial artery. I made the patient aware of this. Will see her in a few week Documented By: Henry Benton MD 10/26/23 101 2 Signed By: <Electronically signed by MD Henry Benton> 10/26/23 1014 [facility] Work Phone: [phone]) 923-525812-15-2023 Consult note Author Henry Benton [facility] October 25, 2023 3:07pm Note Date/Time October 25, 2023 3:07pm [facility] [address] [place] [address] Vascular Surgery Consult Note Signed Patient: Garett Nieto I MR#: [id number] : 1940 Acct:[id number] Age/Sex: 83 / F Adm Date: 3 Loc: 4N Room: 5N5046-0 Type: ADM IN Attending Dr: Derek Hardy MD Copies to: MD Zeenat Wall MD Jeffrey L Buehrer, MD~ HPI Consult HPI Reason for consult: Ischemic rest pain left foot History of present illness: Ms. Nieto is a 83 year old female who underwent previous endovascular intervention in 2020 for limb threatening ischemia on the left. She has a rightbelow-knee amputation. She does walk at household distances with a walker. Shewas in the emergency room in [place] last night with ischemic rest pain in her left foot. We have followed her since August knowing that she had recurrent femoral-popliteal occlusion but at that time she was minimally symptomatic. Currently she is unable to tolerate the pain in her foot. cc:: CC: Derek Hardy MD Data of Consult Consult date: 10/25/2023 Requesting Physician: Derek Hardy MD Review of Systems Review of Systems All other systems reviewed & are negative unless noted below or in HPI [facility] Medical History (Updated 10/25/23 @ 02:44 by Neida Underwood APRN) COPD (chronic obstructive pulmonary disease) Problem List clean-up per request of Phys. EHR Cmte CVA (cerebral vascular accident) Cyst, thyroid Dysphagia Problem List clean-up per request of Phys. EHR Cmte HHT (hereditary hemorrhagic telangiectasia) Problem List clean-up per request of Phys. EHR Cmte HTN (hypertension) Hypothyroid Problem List clean-up per request of Phys. EHR Cmte Mastoiditis of left side PAD (peripheral artery disease) Pulmonary embolism PVD (peripheral vascular disease) Problem List clean-up per request of Phys. EHR Cmte Raynaud disease Surgical History History of hysterectomy Problem List clean-up per request of Phys. EHR Cmte History of right below knee amputation Problem List clean-up per request of Phys. EHR Cmte Hx of appendectomy Problem List clean-up per request of Phys. EHR Cmte Family History (Updated 10/25/23 @ 02:38 by Neida Underwood APRN) Daughter Colon cancer Son History of open heart surgery Mother Myocardial infarction Stroke Father Myocardial infarction Social History Smoking Status: Former smoker (quit in 2008) Tobacco Type: cigarettes Substance Use Type: Alcohol (drinks a glass of wine daily) Social History Comments: lives alone with cat. son checks up on her. Allergies & Active Medications Medications and Allergies Allergies moxifloxacin [From Avelox] Allergy (Verified 05/12/21 17:32) Unknown Reaction sulfamethoxazole [From Bactrim] Allergy (Verified 05/12/21 17:32) Unknown Reaction trimethoprim [From Bactrim] Allergy (Verified 05/12/21 17:32) Unknown Reaction Exam Physical Exam Vital Signs: Temp Pulse Resp BP Pulse Ox O2 Del Method O2 Flow Rate 97.4 F L 69 12 171/71 H 100 Nasal Cannula 3 10/25/23 11:08 10/25/23 14:55 10/25/23 14:55 10/25/23 14:55 10/25/23 14:55 10/25/23 14:55 10/25/23 14:55 Narrative: Pleasant female chronically ill no acute distress. Right below-knee amputation. Left leg does not show open wounds or sores but is cool with no pedal pulses Results Labs 10/25/23 05:16 10/25/23 05:16 Labs: Laboratory Results - last 24 hr 10/25/23 10/25/23 10/25/23 00:40 00:40 00:40 Corrected WBC 5.0 Uncorrected WBC Count 5.0 RBC 5.20 H Hgb 12.3 Hct 38.6 MCV 74.2 L MCH 23.7 L MCHC 31.9 L RDW 18.3 H Plt Count 536 H MPV 8.0 Neut % (Auto) N/A Lymph % (Auto) N/A Izard % (Auto) N/A Eos % (Auto) N/A Baso % (Auto) N/A Nucleat RBC Rel Count N/A Neut # (Auto) N/A Lymph # (Auto) N/A Izard # (Auto) N/A Eos # (Auto) N/A Baso # (Auto) N/A Lymphocytes % 7 L Monocytes % 4 Eosinophils % 1 Basophils % 1 Segmented Neutrophils 88 H Platelet Estimate Increased Large Platelets Slight Giant Platelets 6 Plt Morphology Comment N/A RBC Morphology N/A Hypochromasia Moderate Poikilocytosis Slight Anisocytosis Moderate Microcytosis Slight Macrocytosis Slight Spherocytes Slight Target Cells Slight Ovalocytes Moderate Stomatocytes Slight Crenated Cell Slight PT 12.1 INR 1.0 APTT 44.6 H PHA Creatinine Clear 40.82 Sodium 136 Potassium 4.3 Chloride 102 Carbon Dioxide 28.9 Anion Gap 9.4 BUN 15 Creatinine 0.71 Est GFR (CKD-EPI) > 60.0 Glucose 106 H Calcium 9.1 Slides for Path Review 10/25/23 10/25/23 10/25/23 00:40 05:16 05:16 Corrected WBC 4.5 Uncorrected WBC Count 4.5 RBC 5.06 H Hgb 12.0 Hct 37.8 MCV 74.7 L MCH 23.6 L MCHC 31.6 L RDW 17.9 H Plt Count 482 H MPV 8.0 Neut % (Auto) 70.2 Lymph % (Auto) 18.6 Izard % (Auto) 9.0 Eos % (Auto) 1.1 Baso % (Auto) 1.1 Nucleat RBC Rel Count 0.1 Neut # (Auto) 3.2 Lymph # (Auto) 0.8 L Izard # (Auto) 0.4 Eos # (Auto) 0.0 Baso # (Auto) 0.0 Lymphocytes % Monocytes % Eosinophils % Basophils % Segmented Neutrophils Platelet Estimate Increased Large Platelets Slight Giant Platelets Plt Morphology Comment N/A RBC Morphology N/A Hypochromasia Moderate Poikilocytosis Slight Anisocytosis Slight Microcytosis Slight Macrocytosis Slight Spherocytes Target Cells Slight Ovalocytes Slight Stomatocytes Crenated Cell Slight PT 12.7 INR 1.1 APTT PHA Creatinine Clear Sodium Potassium Chloride Carbon Dioxide Anion Gap BUN Creatinine Est GFR (CKD-EPI) Glucose Calcium Slides for Path Review Ordered path review 10/25/23 10/25/23 05:16 07:56 Corrected WBC Uncorrected WBC Count RBC Hgb Hct MCV MCH MCHC RDW Plt Count MPV Neut % (Auto) Lymph % (Auto) Izard % (Auto) Eos % (Auto) Baso % (Auto) Nucleat RBC Rel Count Neut # (Auto) Lymph # (Auto) Izard # (Auto) Eos # (Auto) Baso # (Auto) Lymphocytes % Monocytes % Eosinophils % Basophils % Segmented Neutrophils Platelet Estimate Large Platelets Giant Platelets Plt Morphology Comment RBC Morphology Hypochromasia Poikilocytosis Anisocytosis Microcytosis Macrocytosis Spherocytes Target Cells Ovalocytes Stomatocytes Crenated Cell PT INR APTT 72.6 H PHA Creatinine Clear 40.82 Sodium 136 Potassium 4.0 Chloride 104 Carbon Dioxide 26.8 Anion Gap 9.2 BUN 16 Creatinine 0.53 L Est GFR (CKD-EPI) > 60.0 Glucose 85 Calcium 8.8 Slides for Path Review PT 12.7 Seconds (9.0-12.9) 10/25/23 05:16 APTT 72.6 Seconds (25.1-36.5) H 10/25/23 07:56 A&P - Vascular (1) Ischemic pain of left foot: Plan: She has recurrent ischemic rest pain in her left foot. Will undergo diagnostic arteriogram today and hopefully endovascular intervention depending on the findings. She understands and agrees to proceed. (2) PAD (peripheral artery disease): (3) PVD (peripheral vascular disease): (4) HTN (hypertension): (5) Hypothyroid: Plan As above Documented By: Henry Benton MD 10/25/23 150 5 Signed By: <Electronically signed by MD Henry Benton> 10/25/[address] [facility] Work Phone: [phone] 962-603112-15-2023 History and physical note Author Bob Sainz [facility] October 25, 2023 3:02am Note Date/Time October 25, 2023 1:18am [facility] [address] [place] [address] Hospitalist H&P Signed Patient: Garett Nieto I MR#: [id number] : 1940 Acct:[id number] Age/Sex: 83 / F Adm Date: 3 Loc: 4N Room: [address] [place] [address] Type: ADM IN Attending Dr: Nydia Chavis MD Copies to: MD Nydia Acotsa MD Obaydah M Daromar, MD Paula G Smith, CATTLE SORTER~ HPI DATE OF EXAMINATION: 10/25/23 CHIEF COMPLAINT: discolored left foot HISTORY OF PRESENT ILLNESS: Ms. Nieto is an 83-year-old female with PMH of CVA, PVD, PAD, hypothyroidism, HTN, right BKA presented to [facility] from her PCPs office fordiscolored foot. Patient seen and examined at bedside, resting in bed quietly. She states she went to her doctor today because her foot had been feeling cold and it was red. He told her she needed to go to the emergency room right away. She said that this has been happening to her foot off and on for a while now. She reports that she has poor circulation. She denies chest pain, shortness of breath, fever chills, nausea or vomiting. She does state that she is a patient of Dr. Benton, she has had procedure on his left leg before. Patient arrived to [facility] from her PCP office for discoloration to left foot. Arterial doppler of the left left mildly abnormal thigh, moderately abnormal calf and flatline ankle level PVR waveform contour. No calf waveform augmentation noted. PT EDEN is 0.17, DP EDEN is unobtainable due to absent CW doppler, Hyperemic common femoral, and monophasic popliteal and PT and absent DP CW doppler waveforms. She was given a 4000 unit bolus of heparin started on a drip. BMP was unremarkable. CBC with a plt count of 510. ER physician spoke with vascular surgeon here at [facility] who accepted the patientas consultant technology. She was transferred here as inpatient under the care of the hospitalist team for further evaluation and treatment. Review of Systems Review of Systems Review of systems: A 10 point review of systems was obtained, negative unless noted in the HPI or below. [facility] Medical History (Updated 10/25/23 @ 02:44 by Neida Underwood APRN) COPD (chronic obstructive pulmonary disease) Problem List clean-up per request of Phys. EHR Cmte CVA (cerebral vascular accident) Cyst, thyroid Dysphagia Problem List clean-up per request of Phys. EHR Cmte HHT (hereditary hemorrhagic telangiectasia) Problem List clean-up per request of Phys. EHR Cmte HTN (hypertension) Hypothyroid Problem List clean-up per request of Phys. EHR Cmte Mastoiditis of left side PAD (peripheral artery disease) Pulmonary embolism PVD (peripheral vascular disease) Problem List clean-up per request of Phys. EHR Cmte Raynaud disease Surgical History History of hysterectomy Problem List clean-up per request of Phys. EHR Cmte History of right below knee amputation Problem List clean-up per request of Phys. EHR Cmte Hx of appendectomy Problem List clean-up per request of Phys. EHR Cmte Family History (Updated 10/25/23 @ 02:38 by Neida Underwood APRN) Daughter Colon cancer Son History of open heart surgery Mother Myocardial infarction Stroke Father Myocardial infarction Social History Smoking Status: Former smoker (quit in 2008) Substance Use Type: Alcohol (drinks a glass of wine daily) Social History Comments: lives alone with cat. son checks up on her. Meds Medications and Allergies Allergies moxifloxacin [From Avelox] Allergy (Verified 05/12/21 17:32) Unknown Reaction sulfamethoxazole [From Bactrim] Allergy (Verified 05/12/21 17:32) Unknown Reaction trimethoprim [From Bactrim] Allergy (Verified 05/12/21 17:32) Unknown Reaction Home Medications acetaminophen 325 mg capsule (Tylenol) 650 mg PO Q6H PRN Pain 01/27/21 [History Confirmed 03/28/22] levothyroxine 100 mcg tablet (Synthroid) 75 mcg PO DAILY 01/27/21 [History Confirmed 10/25/23] clopidogrel 75 mg tablet (Plavix) 75 mg PO DAILY 3 months #90 tabs 03/28/22 [Rx Confirmed 10/25/23] lisinopril 10 mg tablet 10 mg PO 1XD 10/25/23 [History Confirmed 10/25/23] Exam Physical Exam Vital Signs: Temp Pulse Resp BP Pulse Ox O2 Del Method 97.8 F 75 18 155/72 H 97 Room Air 10/25/23 00:35 10/25/23 00:35 10/25/23 00:35 10/25/23 00:35 10/25/23 00:35 10/25/23 00:39 Narrative: CONST- Appears well -developed, frail, cachectic, hard of hearing HEAD - Normocephalic and atraumatic EENT-Sclera nonicteric, conjunctive are non-erythemic, moist oral mucosa, pharynx clear NECK-Supple, no cervical lymphadenopathy CARDIAC-normal rate, regular rhythm, S1 & S2. Murmur PULM-diminished without wheeze or rhonchi, RA, no accessory muscle use or cough noted ABD - Soft. Bowel sounds are normal. No distention. No tenderness EXTREM-no edema LLE calves, tenderness to left foot, reddened and cool, cap refill slow, coolness starts at ankle, Right BKA, unable to doppler left pedal pulse SKIN- W/D good turgor MS- MAEX4 spontaneously- generalize weakness NEURO- A&Ox3 speech clear and tongue midline, equal facial symmetry, no focal motor deficits PSYCH-Mood, affect, and behavior appropriate Results Lab Results Labs: Laboratory Last Values Corrected WBC 5.0 X10E3/uL (3.8-11.6) 10/25/23 00:40 Uncorrected WBC Count 5.0 x10E3/uL (3.8-11.6) 10/25/23 00:40 RBC 5.20 X10E6/uL (3.60-5.00) H 10/25/23 00:40 Hgb 12.3 g/dL (11.8-15.4) 10/25/23 00:40 Hct 38.6 % (34.0-46.4) 10/25/23 00:40 MCV 74.2 fl (80-100) L 10/25/23 00:40 MCH 23.7 pg (24.7-34.3) L 10/25/23 00:40 MCHC 31.9 g/dL (32.0-35.0) L 10/25/23 00:40 RDW 18.3 % (11.9-15.3) H 10/25/23 00:40 Plt Count 536 x10E3/uL (150-450) H 10/25/23 00:40 MPV 8.0 fl (6.3-10.7) 10/25/23 00:40 PT 12.1 Seconds (9.0-12.9) 10/25/23 00:40 INR 1.0 10/25/23 00:40 APTT 44.6 Seconds (25.1-36.5) H 10/25/23 00:40 PHA Creatinine Clear 40.82 10/25/23 00:40 Sodium 136 mmol/L (136-145) 10/25/23 00:40 Potassium 4.3 mmol/L (3.5-5.1) 10/25/23 00:40 Chloride 102 mmol/L (98-107) 10/25/23 00:40 Carbon Dioxide 28.9 mmol/L (21.0-31.0) 10/25/23 00:40 Anion Gap 9.4 mEq/L (6.0-15.0) 10/25/23 00:40 BUN 15 mg/dL (7-25) 10/25/23 00:40 Creatinine 0.71 mg/dL (0.60-1.20) 10/25/23 00:40 Est GFR (CKD-EPI) > 60.0 mL/Min 10/25/23 00:40 Glucose 106 mg/dL (70-100) H 10/25/23 00:40 Calcium 9.1 mg/dL (8.6-10.3) 10/25/23 00:40 Assessment & Plan Assessment/Plan (1) Ischemic pain of left foot: (2) PAD (peripheral artery disease): (3) PVD (peripheral vascular disease): (4) HTN (hypertension): (5) Hypothyroid: Plan Ischemic left foot due to PAD?history of balloon angioplasty in 2021 PAD PVD ? Consult vascular surgery ? Stat CBC, BMP, PT/INR, PTT, repeat in a.m. ? Heparin drip per protocol Chronic conditions HTN?monitor, resume home meds?lisinopril Hypothyroidism?levothyroxine History of CVA?continue Plavix DVT PPx-SCD to LLE, heparin drip Diet order-n.p.o. at this time except meds CODE STATUS-full code as discussed with patient Attending Physician Attestation: I personally reviewed the history, performed the agustin elements of the exam, formulated the plan of care and confirmed the written note. I agree with the findings and plan as documented in this note and have edited it if needed to reflect my findings and plan. Bob Cottrell MD IP vs OBS Justification Based on differential dx, clinical care plan, and risk of adverse events, if untreated, in my clinical judgement this patient requires an acute care setting as: INPATIENT because of an expectation of an over 2 midnight stay. Estimated length of stay (# of days): 3 Documented By: Neida Underwood APRN 10/25/23 0117 Signed By: <Electronically signed by LIBIA Underwood> 10/25/23 0254 <Electronically signed by Bob Sainz MD> 10/25/[address] [facility] Work Phone: 1(422) 233-606010-17-2023 Evaluation note* Encounter Date Diagnosis Assessment Notes Treatment Notes Treatment Clinical Notes Aug, Peripheral vascular disease, unspecified (ICD-10 - I73.9) Aug, Other specified postprocedural states (ICD-10 - Z98.890) Aug, Other Peripheral reginald rial occlusive disease She likely has failure of her superficial femoral artery angioplasty site. At this juncture her limb is not jeopardized as she does not have ischemic rest pain or ulceration. She checks her foot regularly for any injury. We will follow her at a closer interval as she is at risk for recurrent ulceration given the markedly diminished ankle pressures. She is aware of this plan and agrees. She does not want to come in the winter due to difficulties with transportation but I advised her its important to have good follow-up. She also knows that should she develop any areas of skin injury on the left foot she should return immediately. [facility] Other 02-08-2023 Evaluation note* Encounter Date Diagnosis Assessment Notes Treatment Notes Treatment Clinical Notes Dec, PAD (peripheral artery disease) (ICD-10 - I73.9) [facility] Other 02-02-2023 Evaluation note* Encounter Date Diagnosis Assessment Notes Treatment Notes Treatment Clinical Notes Dec, PAD (peripheral artery disease) (ICD-10 - I73.9) We reviewed today's noninvasive arterial testing which remains stable with left EDEN 0.89. She does have known PAD remaining severe small vessel disease that may not be amendable to further intervention. She currently has no open sores or ulcers and she has no ischemic rest pain. She is on good medical therapy with use of aspirin, Plavix, and statin medications daily. We will continue to follow her along a routine basis and have her back again in 6 months time with repeat studies. She knows to call us in the meantime with any issues or concerns. [facility] Other 01-23-2023 Evaluation note* Encounter Date Diagnosis Assessment Notes Treatment Notes Treatment Clinical Notes Nov, PAD (peripheral artery disease) (ICD-10 - I73.9) Her noninvasive arterial testing of the left leg in July of last year showed PT EDEN of 0.79. She does not have any open sores or ulcers currently. She does have what appears to be fungal changes of her toenails and her great toenail definitely needs a good trimming. 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 This patient has no ischemic rest pain and no current open sores or ulcers. This patient does have known PAD with previous intervention and remaining severe small vessel disease that may not be amendable to further intervention. We will start by repeating her noninvasive arterial testing for comparison from 6 months ago and go from there. We will get this done in the very near future so she can proceed with podiatric care which is greatly needed. Again, she has no open sores and does not have any ischemic rest pain currently. [facility] Other 09-13-2022 Evaluation note* Encounter Date Diagnosis Assessment Notes Treatment Notes Treatment Clinical Notes Jul, PAD (peripheral artery disease) (ICD-10 - I73.9) We reviewed today's left EDEN showing PT 0.79. This patient is having no ischemic rest pain. She has no open sores or ulcerations. He has a palpable PT pulse. She does not ambulate but stands for transfer. She expresses desire for use of prosthetic limb on the right. I believe this may be a struggle for her. She does not appear to be very strong and would need a lot of work and physical therapy to get there. Although I did not discourage her. Office staff helped her find an alternate prosthetic company closer to her home. Information was provided for her and her son and she plans to call and speak with them more about prosthetic use. I did tell her to call us if she needs anything from our office. We will continue to follow her along closely and see her again in 6 months with repeat studies. She knows to call us in the meantime with any issues. She verbalizes understanding of all discussion, agrees this plan, denies any questions. [facility] Other 06-06-2022 Evaluation note* Encounter Date Diagnosis Assessment Notes Treatment Notes Treatment Clinical Notes Apr, Peripheral vascular disease, unspecified (ICD-10 - I73.9) Apr, Other specified postprocedural states (ICD-10 - Z98.890) Apr, Other Peripheral arterial occlusive disease with ischemic rest pain left foot She has a nice hemodynamic outcome after endovascular intervention. She has a palpable posterior tibial pulse and relief of her rest pain. We will follow her in 3 months at which time we will obtain ankle-brachial indices. She understands and agrees with that plan. [facility] Other Evaluation noteNo assessment information available [facility] Work Phone: Evaluation noteNo InformationNort Refresh Body Other Evaluation note* Diagnosis Onset Date Resolution Status HTN (hypertension) acute Hypothyroid acute Ischemic pain of left foot a cute PAD (peripheral artery disease) acute PVD (peripheral vascular disease) acute [facility] Work Phone: Evaluation note* Diagnosis Onset Date Resolution Status Ischemic pain of left foot r esolved [facility] Work Phone: Evaluation note* Diagnosis HHT (hereditary hemorrhagic telangiectasia) ([facility])- Primary Hereditary hemorrhagic telangiectasia PVD (peripheral vascular disease) ([facility]) Unspecified peripheral vascular disease Essential hypertension Unspecified essential hypertension Acquired hypothyroidism Unspecified hypothyroidism documented in this encounter [facility] SystemEvaluation [facility]* Diagnosis Cystitis- Primary Unspecified cystitis documented in this encounter [employer] SystemEvaluation note* Diagnosis Onset Date Resolution Status PAD (peripheral artery disease) acute [facility] Work Phone: History general Narrative - Reported* Type Description Date Medical History GERD Medical History hypothryodism Medical History hemorroids Medical History COPD Medical History Peripheral vascular occlusive disease with history of right popliteal angioplasty Surgical History T&A Surgical History thyroid cyst Surgical History radial mastoid surgery Surgical History MICHAEL Surgical History colonoscopy Surgical History hysterectomy Surgical History Right below-knee amputation Hospitalization History See above [facility] Other Hospital Discharge instructions Additional Instructions Record daily blood pressure, take the record to PCP with every visit for adjustments in blood pressure medications. Dietary recommendations: - Ensure Plus - 1 container - 4 times/day with meals and bedtime Speech therapy recommendations: - Ground meats with extra bowl of gravy - Thin liquids Home health to manage: - PT/OT to eval and treat - Speech therapy recommendations: -- See above and attached to Michel martínez - Monitor VS routine - Hx. HTN - Vascular assessments - Dx. PAD s/p revascularization of the left foot with stent 10/25/23 - Routine skin assessments/care - Fall precautions - high fall risk - Dietary recommendations: -- Ensure Plus - 1 container - 4 times/day with meals and [facility]time[facility] Work Phone: InstructionsNot on filedocumented in this encounter [facility] on filedocumented in this encounter [facility] System[facility]Not on filedocumented in this encounter [facility] System[facility]ructionsNot on filedocumented in this encounter [facility]* Attachments The following attachments cannot be sent through Care Everywhere. * Heart Healthy Diet (Indonesian) documented in this encounterProWorkbooks Health SystemInstructionsNot on file documented in this encounterProWorkbooks Health SystemInstructionsNot on file documented in this encounterProSocial Point SystemInstructionsNot on file documented in this encounterProSt. Elizabeth [email or web address] SystemInstructionsNot on file documented in this encounterProSt. Elizabeth [email or web address] SystemInstructionsNot on file documented in this encounterClermont County [email or web address] System Summary Purpose Family History No Family History Records Found Relationship Condition Age at Onset Recorded Date/T ender daughter Malignant neoplasm of colon Unknown natural son History of open heart surgery Unknown Relationship Condition Age at Onset Recorded Date/T ender daughter Malignant neoplasm of colon Unknown natural son History of open heart surgery Unknown Not Specified Myocardial infarction Unknown Cerebrovascular accident (CVA) Unknown father Myocardial infarction Unknown Relationship Condition Age at Onset Recorded Date/T ender daughter Malignant neoplasm of colon Unknown natural son History of open heart surgery Unknown Not Specified Myocardial infarction Unknown Cerebrovascular accident (CVA) Unknown father Myocardial infarction Unknown daughter Epilepsy Unknown father Heart disease Unknown Myocardial infarction Unknown Unknown Not Specified Unknown Heart disease Unknown Not Specified Heart disease Unknown natural son Vascular disorder Unknown sister Heart disease Unknown Advance Directives No Advanced Directives Records Found Advance Directive Response Recorded Date/ Time Advance Directives No November 20, 2017 1:50pm Advance Directive Response Recorded Date/ Time Advance Directives No November 20, 2017 12:50pm Latest Code Status on File Code Status Date Activated Date Inactivated Comments Full Code 11/04/2023 7:24 AM 11/07/2023 4:13 PM Code Status History Code Status Date Activated Date Inactivated Comments DNR Comfort Care Arrest (DNR-CCA) [place] 11/04/2023 7:15 AM 11/04/2023 7:24 AM DNR Comfort Care Arrest (DNR-CCA) [place] 01/20/2023 8:53 AM 01/22/2023 3:53 PM DNR Comfort Care Arrest (DNR-CCA) [place] 05/19/2021 11:30 PM 05/22/2021 4:45 AM DNR Comfort Care Arrest (DNR-CCA) [place] 05/19/2021 11:23 PM 05/19/2021 11:30 PM Chief Complaint and Reason for Visit Chief Complaint i70.212 Chief Complaint i70.213 Chief Complaint i70.212 i70.212 Chief Complaint i70.212 P A D Reason for Visit HTN (hypertension) Hypothyroid Ischemic pain of left foot PAD (peripheral artery disease) PVD (peripheral vascular disease) Chief Complaint i70.212 P A D i70.212 Reason for Visit Ischemic pain of lef t foot Chief Complaint 3 MONTH F/U PAD; EDEN LEFT LEG 11A i70.211 Reason for Visit PAD (peripheral reginald ry disease) Additional Source Comments INFORMATION SOURCE (unrecogn ized section and content) DATE CREATED AUTHOR 04/13/2019 [facility] DATE CREATED AUTHOR AUTHOR'S ORGANIZ ATION 08/18/2019 [facility] DATE CREATED AUTHOR AUTHOR'S ORGANIZ ATION 03/17/2024 [facility] DATE CREATED AUTHOR AUTHOR'S ORGANIZ ATION 03/22/2024 [facility] DATE CREATED AUTHOR AUTHOR'S ORGANIZ ATION 06/06/2024 [facility] DATE CREATED AUTHOR AUTHOR'S ORGANIZ ATION 06/27/2024 [facility] REASON FOR VISIT (unrecogniz ed section and content) Reason Comments Med Refill Reason Onset Date Comments Care Navigation 12/16/2023 Reason Comments KELSIE Reason Onset Date Comments Care Navigation 12/19/2023 Reason Onset Date Comments Care Navigation 12/26/2023 Xarelto savings Reason Onset Date Comments Care Navigation 01/02/2024 Reason Onset Date Comments Care Navigation 01/15/2024 Care Teams (unrecognized sec tion and content) Team Status: Inactive Member Role Status Dates Zeenat Saenz MD Primary Care Provider Active Henry Benton MD Attending Provider Active Team Status: Active Member Role Status Dates Zeenat Saenz MD Primary Care Provider Active Team Status: Inactive Member Role Status Dates Zeenat Saenz MD Primary Care Provider Active Juan C Anders MD Attending Provider Active Team Status: Inactive Member Role Status Dates Zeenat Saenz MD Primary Care Provider Active Bob Sainz MD Admit Provider Active Henry Benton MD Other Provider Active Zaira Skinner MD Attending Provider Active 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 Start Date End Date Zeenat Saenz MD [address] [place] [address] PCP - General Family Medicine 11/03/23 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 Start Date End Date Zeenat Saenz MD [address] [place] [address] PCP - General Family [facility] 11/03/23 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 Start Date End Date Zeenat Saenz MD [address] [place] [address] PCP - General Family Medicine 11/03/23 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 [address] PCP - General Family Medicine 11/03/23 [facility] Nurse - [employer] 10/02/23 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 Start Date End Date Zeenat Saenz MD [address] 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 [address] PCP - General Family Medicine 11/03/23 [facility] Nurse - [employer] 10/02/23 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 Start Date End Date Zeenat Saenz MD [address] 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 Start Date End Date Zeenat Saenz MD [address] [place] [address] PCP - General Family Medicine 11/03/23 [facility] Nurse - [employer] 10/02/23 Team Status: Inactive Member Role Status Dates Zeenat Saenz MD Primary Care Provider Active Start: February 18, 2024 End: February 18, 2024 Henry Benton MD Attending Provider Active S tart: February 18, 2024 End: February 18, 2024 Team Status: Active Member Role Status Dates Zeenat Saenz MD Primary Care Provider Active Start: February 18, 2024 Henry Benton MD Attending Provider Active S tart: February 18, 2024 Goals (unrecognized section and content) Goals may be documented in a n alternate section FOR RECORDS PERTAINING TO PATIENTS WHO ARE OR HAVE BEEN ENROLLED IN A CHEMICAL DEPENDENCY/SUBSTANCEABUSE PROGRAM, SOME INFORMATION MAY BE OMITTED. This clinical summary was aggregated from multiple sources. Caution should be exercised in using it in the provision of clinical care. This summary normalizes information from multiple sources, and as a consequence, information in this document may materially change the coding, format and clinical context of patient data. In addition, data may be omitted in some cases. CLINICAL DECISIONS SHOULD BE BASED ON THE PRIMARY CLINICAL RECORDS. [employer] provides no warranty or guarantee of the accuracy or completeness of information in this document.
--- NOTE | 2024-08-07 15:40 | ED_ITS ---
HPI - Epistaxis General Chief Complaint: Epistaxis Stated Complaint: EPISTAXIS Time Seen by Provider: 08/07/24 15:28 Source: patient Mode of arrival: ambulance History of Present Illness HPI Narrative: 84-year-old female presents for nosebleed. It has been on the left side for a few hours. She is on Xarelto. No bleeding from the right side. She has had to have nasal surgery in the remote past because of nosebleeds. No other bleeding. Related Data Home Medications ?Medication ?Instructions ?Recorded ?Confirmed aspirin 81 mg chewable tablet 81 mg PO .qhs 06/16/24 06/16/24 atorvastatin 80 mg tablet 80 mg PO DAILY 06/16/24 06/16/24 cyclosporine 0.05 % eye drops in a 1 drp ophthalmic (eye) BID 06/16/24 06/16/24 dropperette (Restasis) levothyroxine 100 mcg tablet 100 mcg PO .acb 06/16/24 06/16/24 (Synthroid) lisinopril 10 mg tablet 10 mg PO DAILY 06/16/24 06/16/24 mirabegron 25 mg tablet,extended 25 mg PO QAM 06/16/24 06/16/24 release 24 hr rivaroxaban 2.5 mg tablet (Xarelto) 2.5 mg PO DAILY 06/16/24 06/16/24 Previous Rx's ?Medication ?Instructions ?Recorded omeprazole 40 mg capsule,delayed 40 mg PO DAILY #30 caps 06/17/24 release amoxicillin 500 mg capsule 500 mg PO TID 5 days #15 caps 08/07/24 Allergies Allergy/AdvReac Type Severity Reaction Status Date / Time moxifloxacin [From Avelox] Allergy Unknown Rash Verified 06/16/24 10:33 sulfamethoxazole Allergy Unknown Rash Verified 06/16/24 10:33 [From Bactrim] trimethoprim [From Bactrim] Allergy Unknown Rash Verified 06/16/24 10:33 Review of Systems ROS Narrative A ten point review of systems is negative except as noted above. 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 - Complete traumatic amputation at level between unspecified hip and knee, initial encounter (ICD-10) Hypothyroidism ?E03.9 - Hypothyroidism, unspecified (ICD-10) HTN (hypertension) ?I10 - Essential (primary) hypertension (ICD-10) Surgical History (Updated 06/16/24 @ 14:33 by Serenity Hearn) History of tonsillectomy ?Z90.89 - Acquired absence of other organs (ICD-10) H/O: hysterectomy ?Z90.710 - Acquired absence of both cervix and uterus (ICD-10) Family History (Updated 06/16/24 @ 14:36 by Serenity Hearn) Father Family history of CHF (congestive heart failure) Family history of myocardial infarction Mother Family history of CHF (congestive heart failure) Family history of myocardial infarction Social History (Updated 06/16/24 @ 13:00 by Shaikh Alber MD) Within the past year, how often did you have a drink containing alcohol: monthly or less Within the past year, how many standard drinks containing alcohol did you have on a typical day: 1 or 2 Total score: 0 Score interpretation: A score less than 3 is consistent with normal alcohol consumption. Smoking status: Former smoker Non-prescribed substance use: denies use Highest level of school completed/degree received: high school graduate Little interest or pleasure in doing things: not at all Feeling down, depressed, or hopeless: not at all Gender Identity: female Exam Narrative Exam Narrative: Nurses note and vital signs reviewed and patient is not hypoxic. General: The patient appears well and in no apparent distress. Patient is resting comfortably on cart. Skin: Warm, dry, no pallor noted. There is no rash noted. Head: Normocephalic, atraumatic Eye: Normal conjunctiva, no drainage Ears, Nose, Mouth, and Throat: oral mucosa is moist. Nasal clamp present and there is some tissue paper in her left nares. Cardiovascular: Not tachycardia Respiratory: Patient is in no distress, no accessory muscle use, lungs are clear to auscultation, no wheezing, rales or rhonchi Back: non-tender GI: Soft and nontender Musculoskeletal: The patient has no evidence of calf tenderness, no pitting edema, symmetrical pulses noted bilaterally Neurological: A&O, normal speech Psychiatric: Cooperative Constitutional Vital Signs, click to edit/add: Last Vital Signs Temp 97.5 F L 08/07/24 15:27 Pulse 64 08/07/24 15:27 Resp 18 08/07/24 15:27 BP 169/79 H 08/07/24 15:27 Pulse Ox 94 L 08/07/24 15:27 O2 Del Method Room Air 08/07/24 15:27 Course Vital Signs Vital signs: Vital Signs Temperature 97.5 F L 08/07/24 15:27 Pulse Rate 64 08/07/24 15:27 Respiratory Rate 18 08/07/24 15:27 Blood Pressure 169/79 H 08/07/24 15:27 Pulse Oximetry 94 L 08/07/24 15:27 Oxygen Delivery Method Room Air 08/07/24 15:27 Temperature 97.5 F L 08/07/24 15:27 Pulse Rate 64 08/07/24 15:27 Respiratory Rate 18 08/07/24 15:27 Blood Pressure 169/79 H 08/07/24 15:27 Pulse Oximetry 94 L 08/07/24 15:27 Oxygen Delivery Method Room Air 08/07/24 15:27 MDM - Epistaxis MDM Narrative Medical decision making narrative: The following procedure was performed by me. The nasal clamp was removed as well as the tissue paper in her left nares. There was no active bleeding. 5.5 cm anterior inflatable nasal packing applied and inflated and she tolerated the procedure well. No subsequent hemorrhage. She is discharged home a short course of amoxicillin and will follow-up with her ENT physician. If unable to see him on Saturday, August 10 she will come to this emergency department for removal. Findings are discussed with the patient and her son. Differential Diagnosis Differential diagnosis: Likely anterior epistaxis and posterior epistaxis Discharge Plan Discharge Chief Complaint: Epistaxis Clinical Impression: Epistaxis Patient Disposition: Home, Self-Care Time of Disposition Decision: 16:52 Condition: Good Mode of Transportation: Private Vehicle Prescriptions / Home Meds: New amoxicillin 500 mg capsule 500 mg PO TID 5 Days Qty: 15 0RF No Action atorvastatin 80 mg tablet 80 mg PO DAILY cyclosporine [Restasis] 0.05 % dropperette 1 drp OPHTHALMIC (EYE) BID Rx Instructions: both eyes levothyroxine [Synthroid] 100 mcg tablet 100 mcg PO .acb lisinopril 10 mg tablet 10 mg PO DAILY mirabegron 25 mg tablet extended release 24 hr 25 mg PO QAM Xarelto 2.5 mg tablet 2.5 mg PO DAILY Rx Instructions: only takes daily due to cost aspirin 81 mg tablet,chewable 81 mg PO .qhs Patient Comments: takes in place of Xarelto at bedtime due to cost omeprazole 40 mg capsule,delayed release(DR/EC) 40 mg PO DAILY Qty: 30 0RF Print Language: Canadian Instructions: Nosebleed (ED) Additional Instructions: See either Dr. Matute or this emergency department on Saturday for packing removal. Referrals: ZEENAT TERAN [Primary Care Provider] - 1 week Kristel Matute MD [Physician] - None
== END 2024-08-07 17:28 | disposition home or self-care (01) ==
PROVIDERS: Emergency Provider Emergency Medicine; PCP Family Medicine
DX: R04.0 Epistaxis (principal); Z79.01 Long term (current) use of anticoagulants; Z87.891 Personal history of nicotine dependence
CPT/HCPCS: 30901; 99281